=== PATIENT | female | born 1930 | race Caucasian/White ===

== ENCOUNTER 2018-12-31 17:46 | Inpatient (IN) | payer OTHER ==
--- NOTE | 2018-12-31 19:36 | PDOC ---
History of Present Illness - General History Source: Patient Exam Limitations: No Limitations - History of Present Illness Initial Comments: 12/31/18 19:34 88YOF with h/o HTN, HLD, A-fib on anticoagulants, GERD, and asthma, who p/w weakness, chills, nausea, loss of appetite, decreased PO food and liquid intake , and generalized malaise for the past 5 days. The weakness is especially worse in her legs, she notes there many be more swelling than normal, and she feels unable to lift her legs as normal, having difficulty walking. She went to see her [facility] PCP who checked her UA and found it to be not infected (she recently finished a course of antibiotics for a recent UTI). Has not taken medications at home for the symptoms. <Anna Mattson - Last Filed: 12/31/18 23:36> <Sarah Beth Garcia - Last Filed: 01/01/19 01:05> - General Chief Complaint: Weakness Stated Complaint: WEAKNESS Time Seen by Provider: 12/31/18 19:33 Past History - Past Medical History Asthma: Yes Cardiac Disorders: Yes (a-fib, clots) COPD: No GI Disorders: Yes (gerd) HTN: Yes Hypercholesterolemia: Yes - Immunization History Immunization Up to Date: Yes - Suicide/Smoking/Psychosocial Hx Smoking Status: No Smoking History: Never smoked Have you smoked in the past 12 months: No Number of Cigarettes Smoked Daily: 0 Information on smoking cessation initiated: No Hx Alcohol Use: No Drug/Substance Use Hx: No Substance Use Type: None Hx Substance Use Treatment: No <Anna Mattson - Last Filed: 12/31/18 23:36> <Sarah Beth Garcia - Last Filed: 01/01/19 01:05> - Past Medical History Allergies/Adverse Reactions: Allergies Allergy/AdvReac Type Severity Reaction Status Date / Time amoxicillin [Amoxicillin] Allergy Intermediate Rash Verified 12/31/18 17:49 atorvastatin calcium Allergy Verified 12/31/18 17:49 [From Lipitor] Home Medications: Ambulatory Orders Amlodipine Besylate 10 mg PO DAILY 12/13/15 Montelukast Na [Singulair -] 10 mg PO HS 12/13/15 Omeprazole [Prilosec] 20 mg PO DAILY 12/13/15 Pravastatin Sodium [Pravachol] 40 mg PO DAILY 12/13/15 Folic Acid 1 mg PO DAILY 05/31/18 Rivaroxaban [Xarelto -] 20 mg PO DAILY 05/31/18 Azithromycin [Zithromax -] 250 mg PO DAILY 12/31/18 Clarithromycin [Biaxin -] 500 mg PO BID 12/31/18 Prednisone 10 mg PO DAILY 12/31/18 Ranitidine HCl [Zantac] 150 mg PO BID 12/31/18 Tobramycin 0.3% Ophth Soln [Tobrex *Ophthalmic Solution*] 2 drop TID 12/31/18 Review of Systems - Review of Systems Able to Perform ROS?: Yes Comments:: 12/31/18 19:57 GEN: chills, malaise, generalized weakness HEENT: no ear pain, sore throat, vision change, or eye pain CV: lightheadedness, no chest pain, palpitations, syncope, or edema RESP: no cough, wheezing, or SOB GI: nausea, decreased PO intake, no abdominal pain, vomiting, diarrhea, constipation, or white/black/bloody stool : no dysuria, hematuria, incontinence, retention, bleeding, or discharge MSK: no neck/back pain, muscle weakness/pain, or joint swelling/pain NEURO: no headache, seizure, vertigo, numbness, tingling, or focal weakness PSYCH: no substance use, no behavior change SKIN: BLE rash, no jaundice ROS otherwise negative except as noted in HPI <Anna Mattson - Last Filed: 12/31/18 23:36> *Physical Exam - Vital Signs Last Vital Signs Temp Pulse Resp BP Pulse Ox 97.8 F 94 H 16 124/72 100 12/31/18 17:50 12/31/18 17:50 12/31/18 17:50 12/31/18 17:50 12/31/18 17:50 - Physical Exam Comments: 12/31/18 19:59 GENERAL: a bit uncomfortable and a bit ill-appearing, A/Ox4, no distress, answers questions appropriately HEENT: PERRLA, EOMI, a bit dry mucous membranes NECK/BACK: no midline ttp, no spinal stepoff or deformity, no hematoma, full ROM , neck supple CARDIOVASCULAR: regular rate/rhythm, normal S1S2, no MGR, strong peripheral pulses, capillary refill <2 seconds, extremities wwp, no edema LUNGS/RESPIRATORY: no respiratory distress, CTAB GI/ABDOMEN: symmetric [id number], normoactive BS, soft, no ttp, no midline pulsatile masses : no CVA tenderness EXTREMITIES: no muscle atrophy, no acute deformity, no edema SKIN: non-blanching 1 mm diameter petechiae scattered along proximal anterior shins bilaterally, skin otherwise warm and dry, no pallor, no jaundice, no rash , no bruising, no skin breakdown, no cuts, no lesions NEUROLOGICAL: GCS 15, CN II-XII grossly intact, 5/5 strength proximally and distally, no facial droop <Anna Mattson - Last Filed: 12/31/18 23:36> - Vital Signs Last Vital Signs Temp Pulse Resp BP Pulse Ox 100.6 F H 86 18 108/50 L 92 L 12/31/18 22:01 01/01/19 00:53 01/01/19 00:53 01/01/19 00:53 01/01/19 00:53 <Sarah Beth Garcia - Last Filed: 01/01/19 01:05> Moderate Sedation - Procedure Monitoring Vital Signs: Procedure Monitoring Vital Signs Temperature 97.8 F 12/31/18 17:50 Pulse Rate 94 H 12/31/18 17:50 Respiratory Rate 16 12/31/18 17:50 Blood Pressure 124/72 12/31/18 17:50 O2 Sat by Pulse Oximetry (%) 100 12/31/18 17:50 <Anna Mattson - Last Filed: 12/31/18 23:36> - Procedure Monitoring Vital Signs: Procedure Monitoring Vital Signs Temperature 100.6 F H 12/31/18 22:01 Pulse Rate 86 01/01/19 00:53 Respiratory Rate 18 01/01/19 00:53 Blood Pressure 108/50 L 01/01/19 00:53 O2 Sat by Pulse Oximetry (%) 92 L 01/01/19 00:53 <Sarah Beth Garcia - Last Filed: 01/01/19 01:05> ED Treatment Course - LABORATORY CBC & Chemistry Diagram: 12/31/18 20:09 12/31/18 20:09 <Anna Mattson - Last Filed: 12/31/18 23:36> - LABORATORY CBC & Chemistry Diagram: 12/31/18 20:09 12/31/18 20:09 - ADDITIONAL ORDERS Additional order review: Laboratory Results 12/31/18 12/31/18 12/31/18 20:12 20:09 20:09 PT with INR INR PTT (Actin FS) VBG pH POC VBG pCO2 POC VBG pO2 Mixed VBG HCO3 Sodium Potassium Chloride Carbon Dioxide Anion Gap BUN Creatinine Creat Clearance w eGFR Random Glucose Lactic Acid 1.4 Calcium Total Bilirubin AST ALT Alkaline Phosphatase Creatine Kinase Creatine Kinase Index CK-MB (CK-2) Troponin I B-Natriuretic Peptide Total Protein Albumin Urine Color Urine Appearance Urine pH Ur Specific [place] Urine Protein Urine Glucose (UA) Urine Ketones Urine Blood Urine Nitrite Urine Bilirubin Urine Urobilinogen Ur Leukocyte Esterase Blood Type Cancelled Antibody Screen Cancelled 12/31/18 12/31/18 12/31/18 20:09 20:09 20:09 PT with INR 12.70 INR 1.08 PTT (Actin FS) 29.6 VBG pH 7.54 H POC VBG pCO2 31.5 L POC VBG pO2 41.0 Mixed VBG HCO3 27.1 H Sodium Potassium Chloride Carbon Dioxide Anion Gap BUN Creatinine Creat Clearance w eGFR Random Glucose Lactic Acid Calcium Total Bilirubin AST ALT Alkaline Phosphatase Creatine Kinase Creatine Kinase Index CK-MB (CK-2) Troponin I B-Natriuretic Peptide Total Protein Albumin Urine Color Yellow Urine Appearance Clear Urine pH 5.0 D Ur Specific [place] 1.017 Urine Protein Negative Urine Glucose (UA) 3+ H Urine Ketones Trace H Urine Blood Negative Urine Nitrite Negative Urine Bilirubin Negative Urine Urobilinogen Negative Ur Leukocyte Esterase Negative Blood Type Antibody Screen 12/31/18 20:09 PT with INR INR PTT (Actin FS) VBG pH POC VBG pCO2 POC VBG pO2 Mixed VBG HCO3 Sodium 138 Potassium 4.7 Chloride 99 Carbon Dioxide 27 Anion Gap 12 BUN 21 H Creatinine 0.7 Creat Clearance w eGFR > 60 Random Glucose 57 L Lactic Acid Calcium 8.7 Total Bilirubin 0.7 AST 37 ALT 11 L Alkaline Phosphatase 91 Creatine Kinase 161 Creatine Kinase Index 0.9 CK-MB (CK-2) 1.50 Troponin I < 0.02 B-Natriuretic Peptide 1990.32 H Total Protein 6.4 Albumin 3.3 L Urine Color Urine Appearance Urine pH Ur Specific [place] Urine Protein Urine Glucose (UA) Urine Ketones Urine Blood Urine Nitrite Urine Bilirubin Urine Urobilinogen Ur Leukocyte Esterase Blood Type Antibody Screen 12/31/18 20:09 RBC 3.73 MCV 100.0 H MCHC 34.3 RDW 15.0 MPV 9.3 D Neutrophils % 68.0 D Lymphocytes % 24.6 D Monocytes % 4.1 Eosinophils % 2.7 D Basophils % 0.6 - Medications Given in the ED: ED Medications Discontinued Medications Generic Name Dose Route Start Last Admin Trade Name Donovan PRN Reason Stop Dose Admin Acetaminophen 1,000 mg 12/31/18 20:17 12/31/18 20:49 Ofirmev Injection - IVPB 12/31/18 20:18 1,000 mg ONCE ONE Administration Dextrose 25 gm 12/31/18 21:46 12/31/18 21:56 D50w (Vial) - IVPUSH 12/31/18 21:47 25 gm NOW ONE Administration Doxycycline Hyclate 100 mg/ 100 mls @ 100 mls/hr 12/31/18 23:57 01/01/19 00: 14 Dextrose IVPB 01/01/19 00:56 100 mls/hr ONCE ONE Administration Sodium Chloride 500 ml 12/31/18 19:51 12/31/18 20:49 Normal Saline - IV 12/31/18 19:52 500 ml ONCE ONE Administration <Sarah Beth Garcia - Last Filed: 01/01/19 01:05> Medical Decision Making - Medical Decision Making 88YOF Initial Vital Signs Temp Pulse Resp BP Pulse Ox 97.8 F 94 H 16 124/72 100 12/31/18 17:50 12/31/18 17:50 12/31/18 17:50 12/31/18 17:50 12/31/18 17:50 rectal temp 100.6 12/31/18 23:29 I have placed order for one dose of Levaquin 750mg. Most likely pulmonary source given possible LLL PNA on chest CT. She would be CAP; she is amoxicillin allergic. QTc is 472ms prior to administration. 12/31/18 23:34 The Pt is unsafe for discharge at this time. They require further hospital observation, workup, and treatment. Microblog sent to [facility] for admission. Blank Decision to Admit order is placed per ED protocol. <Anna Mattson - Last Filed: 12/31/18 23:36> *DC/Admit/Observation/Transfer - Discharge Dispostion Decision to Admit order: Yes <Anna Mattson - Last Filed: 12/31/18 23:36> <Sarah Beth Garcia - Last Filed: 01/01/19 01:05> Diagnosis at time of Disposition: Aspiration pneumonia Pneumonia Qualifiers: Pneumonia type: due to unspecified organism Laterality: left Lung location: lower lobe of lung Qualified Code(s): J18.1 - Lobar pneumonia, unspecified organism Failure to thrive Qualifiers: Failure to thrive age range: in adult Qualified Code(s): R62.7 - Adult failure to thrive - Discharge Dispostion Condition at time of disposition: Guarded
[2018-12-31] MEDS ORDERED: SODIUM CHLORIDE 0.9% 500 ML INFUS.BAG IV ONE (19:51)
--- NOTE | 2018-12-31 19:55 | PDOC ---
Attending Attestation - Resident Resident Name: SrinivasanAnna - ED Attending Attestation I have performed the following: I have examined & evaluated the patient, The case was reviewed & discussed with the resident, I agree w/resident's findings & plan - HPI HPI: 12/31/18 21:02 The patient is a 88 year old female, with a significant past medical history of HTN, HLD, A-fib on anticoagulants, GERD, recurrent UTI (recently finished Macrobid), and asthma, who presents to the emergency department with,5 days of weakness. Patient endorses her weakness to worsen in her bilateral lower extremities with associated subjective fevers and chills. She notes calling her PCP who advised to report to [facility] urgent care where she was advised to report to the ED for further evaluation. Allergies: Amoxicillin and Atorvastatin. Primary Care Physician: Dr. Hernandez - Physicial Exam PE: 12/31/18 21:03 GENERAL: Awake, alert, and fully oriented, in no acute distress HEAD: No signs of trauma EYES: PERRLA, EOMI, sclera anicteric, conjunctiva clear ENT: Auricles normal inspection, hearing grossly normal, nares patent, oropharynx clear without exudates. Moist mucosa NECK: Normal ROM, supple, no lymphadenopathy, JVD, or masses LUNGS: Breath sounds equal, clear to auscultation bilaterally. No wheezes, and no crackles HEART: Regular rate and rhythm, normal S1 and S2, no murmurs, rubs or gallops ABDOMEN: Soft, nontender, normoactive bowel sounds. No guarding, no rebound. No masses EXTREMITIES: Normal range of motion, no edema. No clubbing or cyanosis. No cords, erythema, or tenderness NEUROLOGICAL: Cranial nerves II through XII grossly intact. Normal speech. SKIN: 2+ blt LE discoloration 3/[address] white in coloration. Blt LE approximately 1/4 up to the knee petticae <Jaymie Knox - Last Filed: 12/31/18 21:03> - Medical Decision Making 12/31/18 21:50 Pt has an elevated WBC count and a fever. Blood cultures sent off and pt will have Urine cx sent. Once UA is back, we can decide on an ABX for the patient. She just completed a course of Macrobid. 01/01/19 01:02 Patient Name: RANDALL MCKOY THIS IS A PRELIMINARY REPORT FROM [facility] DATE OF SERVICE: 2018-12-31 23:04:21 IMAGES: [id number] EXAM: CHEST CT WITHOUT CONTRAST HISTORY: Weakness COMPARISON: None. FINDINGS: Heart:: Mildly enlarged. 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 The largest measures 1.2 x 0.6 cm Central airways: Normal Lungs: There is small amount of airspace opacity in the left lower lobe and to a lesser degree at the right lung base Pleural spaces: There is small pleural fluid collections Chest wall: Normal Superior abdomen: Normal IMPRESSION: Mild cardiomegaly. Correlation with cardiac history and exam recommended. Airspace opacity at the left lung base suggesting aspiration, or pneumonia 01/01/19 01:04 Patient Name: RANDALL MCKOY THIS IS A PRELIMINARY REPORT FROM [facility] DATE OF SERVICE: 2018-12-31 23:01:38 IMAGES: 128 EXAM: HEAD CT WITHOUT CONTRAST HISTORY: Weakness COMPARISON: None. FINDINGS: Brain parenchyma is normal in attenuation with no mass or hematoma. There is no midline shift. White and white matter differentiation is normal. Ventricles are normal. Sulci and extra-axial CSF spaces are normal. Intracranial vascular structures are normal in attenuation. There is no calvarial fracture. Paranasal sinuses are normally aerated. IMPRESSION: Normal head 01/01/19 20:05 Pt will be admitted <Sarah Bteh Garcia - Last Filed: 01/01/19 20:05> Attestations - Attestations 12/31/18 21:05 Documentation prepared by Jaymie Knox, acting as medical sonographer for Sarah Beth Garcia MD. <Jaymie Knox - Last Filed: 12/31/18 21:03>
[2018-12-31] MEDS ORDERED: ACETAMINOPHEN 1000 MG/100 ML VIAL (NON FORMULARY) IVPB ONE (20:17)
[2018-12-31] MEDS ORDERED: ACETAMINOPHEN INJECTION 100 ML IVPB ONE (20:20)
[2018-12-31 20:36] LABS: BASO % 0.6 % (0-2.0); EOS % 2.7 % (0-4.5); HEMATOCRIT 37.3 % (32.4-45.2); HEMOGLOBIN 12.8 GM/dL (10.7-15.3); LYMPH % 24.6 % (8-40); MCH 34.3 pg (25.7-33.7); MCHC 34.3 g/dl (32.0-36.0); MEAN PLT VOLUME 9.3 fl (7.5-11.1); MONO % 4.1 % (3.8-10.2); PLATELET COUNT 275 K/MM3 (134-434); RBC 3.73 M/mm3 (3.60-5.2); WHITE BLOOD COUNT 15.8 K/mm3 (4.0-10.0)
[2018-12-31 20:41] LABS: VENOUS PC02 31.5 mmHg (38-52); VENOUS PH 7.54 (7.32-7.42)
[2018-12-31 20:53] LABS: INR 1.08 (0.83-1.09); PROTHROMBIN TIME (PATIENT) 12.7 SEC (9.7-13.0)
[2018-12-31 20:56] LABS: ACTIVATED PTT 29.6 SECONDS (25.2-36.5)
[2018-12-31 21:22] LABS: ALBUMIN 3.3 g/dl (3.4-5.0); ANION GAP 12 MMOL/L (8-16); BLOOD UREA NITROGEN 21 mg/dL (7-18); CALCIUM 8.7 mg/dL (8.5-10.1); CHLORIDE 99 mmol/L (98-107); CO2 27 mmol/L (21-32); CREATININE 0.7 mg/dL (0.55-1.3); GLUCOSE,RANDOM 57 mg/dL (74-106); POTASSIUM 4.7 mmol/L (3.5-5.1); SODIUM 138 mmol/L (136-145); TOT PROT 6.4 g/dl (6.4-8.2)
[2018-12-31 21:23] LABS: ALK PHOS 91 U/L (45-117); BILIRUBIN,TOTAL 0.7 mg/dL (0.2-1); N-TERMINAL BNP 1990.32 pg/ml (5-450); SGOT/AST 37 U/L (15-37); SGPT/ALT 11 U/L (13-61)
[2018-12-31] MEDS ORDERED: DEXTROSE 50%-WATER - 25 GM/50 ML VIAL IVPUSH ONE (21:46)
[2018-12-31] MEDS ORDERED: DEXTROSE 50%-WATER 25 GM/50 ML DISP.SYRIN ONE (21:49)
[2018-12-31 23:13] LABS: URINE APPEARANCE CLEAR; URINE BILIRUBIN NEGATIVE (<2.0 mg/dL); URINE COLOR YELLOW; URINE GLUCOSE (UA) 3+ (NEGATIVE); URINE KETONE TRACE (NEGATIVE); URINE LEUK ESTERASE NEGATIVE (NEGATIVE); URINE NITRITE NEGATIVE (NEGATIVE); URINE PROTEIN NEGATIVE (NEGATIVE); URINE UROBILINOGEN NEGATIVE mg/dL (0.2-1.0)
--- NOTE | 2018-12-31 23:46 | PN ---
Teaching Attending Note Name of Resident: Bernie Larose ATTENDING PHYSICIAN STATEMENT I saw and evaluated the patient. I reviewed the resident's note and discussed the case with the resident. I agree with the resident's findings and plan as documented. SUBJECTIVE: Patient is an 88 year old woman with PMH of HTN, HLD, A-fib on anticoagulants, GERD, and asthma, who presents with weakness, chills, nausea, loss of appetite, decreased PO food and liquid intake, and generalized malaise for the past 5 days. The weakness is especially worse in her legs, she notes there many be more swelling than normal, and she feels unable to lift her legs as normal, having difficulty walking. She went to see her [facility] PCP who checked her UA and found it to be not infected (she recently finished a course of antibiotics for UTI). Has not taken medications at home for the symptoms. She is allergic to amoxicillin and atorvastatin. OBJECTIVE: Alert Vital Signs Period Temp Pulse Resp BP Sys/Hill Pulse Ox Last 24 Hr 97.8 F-100.6 F 94 16 124/72 100 HEENT: No Jaundice, eye redness or discharge, PERRLA, EOMI. Normocephalic, atraumatic. External ears are normal and hearing is grossly intact. No nasal discharge. Neck: Supple, nontender. No palpable adenopathy or thyromegaly. No JVD Chest: Good effort. Clear to auscultation and percussion. Heart: Regular. No S3, rub or murmur Abdomen: Not distended, soft, nontender and no HSM. No rebound or guarding. Normoactive bowel sounds. Ext: Peripheral pulses intact. Chronic stasis dermatitis on both legs. Nonpitting leg edema. Skin: Warm and dry. Has petechiae in both lower legs; no rash or ecchymosis. Neuro: Alert. Oriented x3. CN 2-12 grossly intact. Sensation grossly intact in all four extremities and DTR are symmetric. Current Medications Generic Name Dose Route Start Last Admin Trade Name Freq PRN Reason Stop Dose Admin Levofloxacin 750 mg in 150 mls @ 100 mls/hr 12/31/18 23:29 Levaquin 750 Mg Premixed Ivpb - IVPB 01/01/19 00:58 ONCE ONE Protocol Home Medications Medication Instructions Recorded Amlodipine Besylate 10 mg PO DAILY 12/13/15 Montelukast Na [Singulair -] 10 mg PO HS 12/13/15 Omeprazole [Prilosec] 20 mg PO DAILY 12/13/15 Pravastatin Sodium [Pravachol] 40 mg PO DAILY 12/13/15 Folic Acid 1 mg PO DAILY 05/31/18 Rivaroxaban [Xarelto -] 20 mg PO DAILY 05/31/18 Azithromycin [Zithromax -] 250 mg PO DAILY 12/31/18 Clarithromycin [Biaxin -] 500 mg PO BID 12/31/18 Prednisone 10 mg PO DAILY 12/31/18 Ranitidine HCl [Zantac] 150 mg PO BID 12/31/18 Tobramycin 0.3% Ophth Soln [Tobrex 2 drop TID 12/31/18 *Ophthalmic Solution*] Abnormal Lab Results 12/31/18 12/31/18 12/31/18 20:09 20:09 20:09 WBC 15.8 H MCV 100.0 H MCH 34.3 H Absolute Neuts (auto) 10.7 H VBG pH POC VBG pCO2 Mixed VBG HCO3 BUN 21 H Random Glucose 57 L ALT 11 L B-Natriuretic Peptide 1990.32 H Albumin 3.3 L Urine Glucose (UA) 3+ H Urine Ketones Trace H 12/31/18 20:09 WBC MCV MCH Absolute Neuts (auto) VBG pH 7.54 H POC VBG pCO2 31.5 L Mixed VBG HCO3 27.1 H BUN Random Glucose ALT B-Natriuretic Peptide Albumin Urine Glucose (UA) Urine Ketones ASSESSMENT AND PLAN: 1. Pneumonia - CT scan shows LLL infiltrate. Patient is allergic to amoxicillin and QTc is prolonged. Will treat with IV doxycycline and aztreonam. Consult ID. No acute pathology on head CT. Lower leg petechiae, macrocytosis and glycosuria are unexplained. Repeat UA and do HbA1c. 2. DVT prophylaxis - On xarelto 3. Advance directives - Full code
[2018-12-31] MEDS ORDERED: DOXYCYCLINE INJECTION 100 MG in DEXTROSE 5%-WATER - 100 ML IVPB ONE (23:57)
[2019-01-01] MEDS ORDERED: DOXYCYCLINE HYCLATE 100 MG VIAL ONE (00:06)
[2019-01-01] MEDS ORDERED: AZTREONAM 1 GM in DEXTROSE 5%-WATER - 50 ML IVPB ONE (01:06)
--- NOTE | 2019-01-01 01:09 | HP ---
CHIEF COMPLAINT: HISTORY OF PRESENT ILLNESS: Patient is an 88 year old female presented to the ED with the chief complaint of " Generalized weakness x 1 week". As per the patient, she was apparently well until a week ago then she started having generalized weakness, experienced more tiredness. Patient lives by herself, can perform ADLs and active. So these symptoms limited her daily activities that prompted her to come the ED. Patient denies any fever, rigors or sweating but now in the ED complaining of chills, wanting more blankets. Also reports she had mild cough, producing whitish phlegm. Other review of systems were negative. Bowel/Bladder habit normal. Sleep/Appetite decreased x 1 week. ER course was notable for: (1) Afebrile, hemodynamically stable. (2) CT Chest prelim report: Left lower lobe pneumonia (3) IV Doxycycline Recent Travel: None PAST MEDICAL HISTORY: HTN, HLD, A-fib/ DVT on anticoagulants, GERD, and asthma, PAST SURGICAL HISTORY: Doesn't remember Social History: Smoking: Denies Alcohol: Occasional Drugs: Denies Family History: Non contributory Allergies amoxicillin [Amoxicillin] Allergy (Intermediate, Verified 12/31/18 17:49) Rash atorvastatin calcium [From Lipitor] Allergy (Verified 12/31/18 17:49) PATIENT DOES NOT REMEMBER REACTION HOME MEDICATIONS: Home Medications Medication Instructions Recorded Amlodipine Besylate 10 mg PO DAILY 12/13/15 Montelukast Na [Singulair -] 10 mg PO HS 12/13/15 Omeprazole [Prilosec] 20 mg PO DAILY 12/13/15 Pravastatin Sodium [Pravachol] 40 mg PO DAILY 12/13/15 Folic Acid 1 mg PO DAILY 05/31/18 Rivaroxaban [Xarelto -] 20 mg PO DAILY 05/31/18 Azithromycin [Zithromax -] 250 mg PO DAILY 12/31/18 Clarithromycin [Biaxin -] 500 mg PO BID 12/31/18 Prednisone 10 mg PO DAILY 12/31/18 Ranitidine HCl [Zantac] 150 mg PO BID 12/31/18 Tobramycin 0.3% Ophth Soln [Tobrex 2 drop TID 12/31/18 *Ophthalmic Solution*] REVIEW OF SYSTEMS CONSTITUTIONAL: Present: malaise, loss of appetite Absent: fever, chills, diaphoresis, generalized weakness, weight change HEENT: Absent: rhinorrhea, nasal congestion, throat pain, throat swelling, difficulty swallowing, mouth swelling, ear pain, eye pain, visual changes CARDIOVASCULAR: Absent: chest pain, syncope, palpitations, irregular heart rate, lightheadedness , peripheral edema RESPIRATORY: Absent: cough, shortness of breath, dyspnea with exertion, orthopnea, wheezing, stridor, hemoptysis GASTROINTESTINAL: Absent: abdominal pain, abdominal distension, nausea, vomiting, diarrhea, constipation, melena, hematochezia GENITOURINARY: Absent: dysuria, frequency, urgency, hesitancy, hematuria, flank pain, genital pain MUSCULOSKELETAL: Absent: myalgia, arthralgia, joint swelling, back pain, neck pain SKIN: Absent: rash, itching, pallor HEMATOLOGIC/IMMUNOLOGIC: Absent: easy bleeding, easy bruising, lymphadenopathy, frequent infections ENDOCRINE: Absent: unexplained weight gain, unexplained weight loss, heat intolerance, cold intolerance NEUROLOGIC: Absent: headache, focal weakness or paresthesias, dizziness, unsteady gait, seizure, mental status changes, bladder or bowel incontinence PSYCHIATRIC: Absent: anxiety, depression, suicidal or homicidal ideation, hallucinations. PHYSICAL EXAMINATION Vital Signs - 24 hr 12/31/18 12/31/18 01/01/19 17:50 22:01 00:53 Temperature 97.8 F 100.6 F H Pulse Rate 94 H Pulse Rate [ 86 Apical] Respiratory 16 18 Rate Blood Pressure 124/72 Blood Pressure 108/50 L [Right Arm] O2 Sat by Pulse 100 92 L Oximetry (%) GENERAL: Elderly female, lying in bed, Awake, alert, and fully oriented, in no acute distress. EYES: EOM intact, no pallor or icterus. NECK: Supple. LUNGS: B/L breath sounds equal. Crackles in the Left lung. HEART: Regular rate and rhythm, normal S1 and S2 without murmur. ABDOMEN: Soft, nontender, no organomegaly. UPPER EXTREMITIES: 2+ pulses, warm, well-perfused. No cyanosis. No clubbing. No peripheral edema. LOWER EXTREMITIES: Petechia on the lower ext, chronic venous statis, 1 + pitting edema. NEUROLOGICAL: No facial droop, power 5/5 in all ext, Cranial nerves II-XII intact. Normal speech. Gait not observed. PSYCHIATRIC: Cooperative. Good eye contact. Appropriate mood and affect. SKIN: Warm, dry, normal turgor, Petechia on b/l lower ext. Laboratory Results - last 24 hr 12/31/18 12/31/18 12/31/18 20:09 20:09 20:09 WBC 15.8 H RBC 3.73 Hgb 12.8 Hct 37.3 MCV 100.0 H MCH 34.3 H MCHC 34.3 RDW 15.0 Plt Count 275 MPV 9.3 D Absolute Neuts (auto) 10.7 H Neutrophils % 68.0 D Lymphocytes % 24.6 D Monocytes % 4.1 Eosinophils % 2.7 D Basophils % 0.6 Nucleated RBC % 0 PT with INR 12.70 INR 1.08 PTT (Actin FS) 29.6 VBG pH POC VBG pCO2 POC VBG pO2 Mixed VBG HCO3 Sodium 138 Potassium 4.7 Chloride 99 Carbon Dioxide 27 Anion Gap 12 BUN 21 H Creatinine 0.7 Creat Clearance w eGFR > 60 Random Glucose 57 L Lactic Acid Calcium 8.7 Total Bilirubin 0.7 AST 37 ALT 11 L Alkaline Phosphatase 91 Creatine Kinase 161 Creatine Kinase Index 0.9 CK-MB (CK-2) 1.50 Troponin I < 0.02 B-Natriuretic Peptide 1990.32 H Total Protein 6.4 Albumin 3.3 L Urine Color Urine Appearance Urine pH Ur Specific [place] Urine Protein Urine Glucose (UA) Urine Ketones Urine Blood Urine Nitrite Urine Bilirubin Urine Urobilinogen Ur Leukocyte Esterase Blood Type Antibody Screen 12/31/18 12/31/18 12/31/18 20:09 20:09 20:09 WBC RBC Hgb Hct MCV MCH MCHC RDW Plt Count MPV Absolute Neuts (auto) Neutrophils % Lymphocytes % Monocytes % Eosinophils % Basophils % Nucleated RBC % PT with INR INR PTT (Actin FS) VBG pH 7.54 H POC VBG pCO2 31.5 L POC VBG pO2 41.0 Mixed VBG HCO3 27.1 H Sodium Potassium Chloride Carbon Dioxide Anion Gap BUN Creatinine Creat Clearance w eGFR Random Glucose Lactic Acid Calcium Total Bilirubin AST ALT Alkaline Phosphatase Creatine Kinase Creatine Kinase Index CK-MB (CK-2) Troponin I B-Natriuretic Peptide Total Protein Albumin Urine Color Yellow Urine Appearance Clear Urine pH 5.0 D Ur Specific [place] 1.017 Urine Protein Negative Urine Glucose (UA) 3+ H Urine Ketones Trace H Urine Blood Negative Urine Nitrite Negative Urine Bilirubin Negative Urine Urobilinogen Negative Ur Leukocyte Esterase Negative Blood Type Cancelled Antibody Screen Cancelled 12/31/18 12/31/18 20:09 20:12 WBC RBC Hgb Hct MCV MCH MCHC RDW Plt Count MPV Absolute Neuts (auto) Neutrophils % Lymphocytes % Monocytes % Eosinophils % Basophils % Nucleated RBC % PT with INR INR PTT (Actin FS) VBG pH POC VBG pCO2 POC VBG pO2 Mixed VBG HCO3 Sodium Potassium Chloride Carbon Dioxide Anion Gap BUN Creatinine Creat Clearance w eGFR Random Glucose Lactic Acid 1.4 Calcium Total Bilirubin AST ALT Alkaline Phosphatase Creatine Kinase Creatine Kinase Index CK-MB (CK-2) Troponin I B-Natriuretic Peptide Total Protein Albumin Urine Color Urine Appearance Urine pH Ur Specific [place] Urine Protein Urine Glucose (UA) Urine Ketones Urine Blood Urine Nitrite Urine Bilirubin Urine Urobilinogen Ur Leukocyte Esterase Blood Type Antibody Screen ASSESSMENT/PLAN: Patient is an 88 year old female with significant past medical history of HTN, HLD, A-fib/ DVT on anticoagulants, GERD, and asthma presented to the ED with the chief complaint of " Generalized weakness x 1 week" found to have pneumonia. # Community acquired pneumonia-LLL c/o generalize weakness Found to have LLL Pneumonia in CT Admit to Med-Surg Start IV Doxycycline 100 mg BID and IV Aztreonam (patient is allergic to amoxicillin and has prolonged qtc so abx choice is limited) ID Consult requested Flu pending Urine for legionella and sputum culture ordered. # Petechial rash in bilateral lower ext Pt states she didn't notice the rash until she was told in the ED. Unsure of the cause, platelet count normal. # Hypertension-controlled Continue amlodipine 10 mg # Asthma Continue Montelukast 10mg HS and Prednisone 10mg # DVT/PAF Continue Xarelto # Parkinsons disease States she is not sure if she takes sinemet. Will sign out to the morning team to confirm home meds. # Please confirm home meds. # FEN Not on IV fluids, can tolerate PO Electrolytes WNL Sodium controlled diet # Prophylaxis For DVT: Already on xarelto For GI: On Zantac 150mg BID # Code Status: Full Code # Dispo: Admit to Med-Surg Illness, Investigation and plan of care explained to the patient. She verbalized understanding. Case discussed with Dr. Aguilar.
[2019-01-01 06:00] VITALS: BMI 22.3
[2019-01-01] MEDS: TOBRAMYCIN 0.3% OPHTH SOLN 5 ML BOTTLE OU SCH ×3 (06:31→21:08)
[2019-01-01 09:21] LABS: HEMATOCRIT 33.9 % (32.4-45.2); HEMOGLOBIN 11.5 GM/dL (10.7-15.3); MCH 33.5 pg (25.7-33.7); MCHC 33.9 g/dl (32.0-36.0); MEAN CELL VOLUME 98.7 fl (80-96); MEAN PLT VOLUME 7.6 fl (7.5-11.1); PLATELET COUNT 348 K/MM3 (134-434); RBC 3.44 M/mm3 (3.60-5.2); RDW 14.4 % (11.6-15.6); WHITE BLOOD COUNT 14.5 K/mm3 (4.0-10.0)
[2019-01-01] MEDS: FOLIC ACID 1 MG TABLET (FP) PO SCH (09:32)
[2019-01-01] MEDS: RANITIDINE HCL 150 MG TABLET (FP) PO SCH ×2 (09:32→21:08)
[2019-01-01] MEDS: DOXYCYCLINE INJECTION 100 MG in DEXTROSE 5%-WATER - 100 ML IVPB SCH ×2 (09:32→21:11)
[2019-01-01] MEDS: PANTOPRAZOLE 20 MG TABLET (FP) PO SCH (09:32)
[2019-01-01] MEDS: amLODIPine BESYLATE 10 MG TABLET (FP) PO SCH (09:32)
[2019-01-01] MEDS: predniSONE 10 MG TABLET (UD) PO SCH (09:32)
[2019-01-01] MEDS ORDERED: PATIENT'S OWN MEDICATION (NON-FORMULARY) (Pravastatin Sodium [Pravachol] 40 MG) PO SCH (10:00)
[2019-01-01 10:02] LABS: ANION GAP 11 MMOL/L (8-16); BLOOD UREA NITROGEN 15 mg/dL (7-18); CHLORIDE 105 mmol/L (98-107); CO2 27 mmol/L (21-32); CREATININE 0.6 mg/dL (0.55-1.3); GLUCOSE,RANDOM 94 mg/dL (74-106); MAGNESIUM 2.1 mg/dL (1.8-2.4); PHOSPHOROUS 2.8 mg/dL (2.5-4.9); POTASSIUM 3.4 mmol/L (3.5-5.1); SODIUM 143 mmol/L (136-145)
--- NOTE | 2019-01-01 10:50 | PN ---
Progress Note, Physician History of Present Illness: pt seen/ examined chart reviewed awake/ comfortable but weak. - Current Medication List Current Medications: Active Medications Amlodipine Besylate (Norvasc -) 10 mg PO DAILY [facility] Last Admin: 01/01/19 09:32 Dose: 10 mg Folic Acid (Folic Acid -) 1 mg PO DAILY [facility] Last Admin: 01/01/19 09:32 Dose: 1 mg Doxycycline Hyclate 100 mg/ (Dextrose) 100 mls @ 100 mls/hr IVPB BID [facility] Last Admin: 01/01/19 09:32 Dose: 100 mls/hr Montelukast Sodium (Singulair -) 10 mg PO HS [facility] Non-Formulary Medication (Pravastatin Sodium [Pravachol]) 40 mg PO DAILY [facility] Pantoprazole Sodium (Protonix -) 20 mg PO DAILY [facility] Last Admin: 01/01/19 09:32 Dose: 20 mg Potassium Chloride (Potassium Chloride Oral Liquid) 40 meq PO ONCE ONE Stop: 01/01/19 10:48 Prednisone (Deltasone -) 10 mg PO DAILY [facility] Last Admin: 01/01/19 09:32 Dose: 10 mg Ranitidine HCl (Zantac -) 150 mg PO BID [facility] Last Admin: 01/01/19 09:32 Dose: 150 mg Rivaroxaban (Xarelto -) 20 mg PO DAILY@1800 [facility] Tobramycin Sulfate (Tobrex Ophthalmic Solution -) 2 drop OU TID [facility] Last Admin: 01/01/19 06:31 Dose: 2 drop - Objective Vital Signs: Vital Signs Temperature 98.1 F 01/01/19 05:59 Pulse Rate 85 01/01/19 05:59 Respiratory Rate 20 01/01/19 05:59 Blood Pressure 119/62 01/01/19 05:59 O2 Sat by Pulse Oximetry (%) 93 L 01/01/19 05:48 Constitutional: Yes: No Distress, Calm Eyes: Yes: Conjunctiva Clear Neck: Yes: Supple Cardiovascular: Yes: Regular Rate and Rhythm Respiratory: Yes: Diminished Gastrointestinal: Yes: Soft Edema: LLE: Trace, RLE: Trace Neurological: Yes: Alert Psychiatric: Yes: Alert Labs: CBC, BMP 01/01/19 07:45 01/01/19 07:45 INR, PTT INR 1.08 (0.83-1.09) 12/31/18 20:09 - ....Imaging Chest X-ray: Report Reviewed Cat Scan: Report Reviewed Problem List - Problems (1) Leukocytosis Code(s): D72.829 - ELEVATED WHITE BLOOD CELL COUNT, UNSPECIFIED (2) Pneumonia Code(s): J18.9 - PNEUMONIA, UNSPECIFIED ORGANISM Qualifiers: Pneumonia type: due to unspecified organism Laterality: left Lung location: lower lobe of lung Qualified Code(s): J18.1 - Lobar pneumonia, unspecified organism (3) Atrial fibrillation Code(s): I48.91 - UNSPECIFIED ATRIAL FIBRILLATION (4) Hypertension Code(s): I10 - ESSENTIAL (PRIMARY) HYPERTENSION Qualifiers: Hypertension type: essential hypertension Qualified Code(s): I10 - Essential (primary) hypertension (5) Paroxysmal atrial fibrillation Code(s): I48.0 - PAROXYSMAL ATRIAL FIBRILLATION Assessment/Plan Discussed abx continue other meds oxygen i/d consult further recommendations per clinical course will follow
[2019-01-01] MEDS ORDERED: POTASSIUM CHLORIDE ORAL LIQUID 20 MEQ/15 ML PO ONE (11:00)
--- NOTE | 2019-01-01 13:33 | PN ---
Progress Note (short form) - Note Progress Note: ID consult dictated imp/reccd-88 yo female admitted with weakness and leukocytosis chest ct with bilateral pleural effusions and consolidation/atelectasis both lower lobes she has recently been treated for a UTI- bactrim, then cipro then macrobid- which she finished yesterday +cough no diarrhea no vomiting amox allergy- rash received levaquin, doxy, azactam since admission possible pneumonia amox allergy prolonged qtc continue doxycycline/azactam cultures legionella urinary antigen Problem List - Problems (1) Weakness Code(s): R53.1 - WEAKNESS (2) Leukocytosis Code(s): D72.829 - ELEVATED WHITE BLOOD CELL COUNT, UNSPECIFIED (3) Pneumonia Code(s): J18.9 - PNEUMONIA, UNSPECIFIED ORGANISM Qualifiers: Pneumonia type: due to unspecified organism Laterality: left Lung location: lower lobe of lung Qualified Code(s): J18.1 - Lobar pneumonia, unspecified organism (4) Allergy to amoxicillin Code(s): Z88.0 - ALLERGY STATUS TO PENICILLIN
[2019-01-01] MEDS: AZTREONAM 1 GM in DEXTROSE 5%-WATER - 50 ML IVPB SCH ×2 (14:27→19:57)
--- NOTE | 2019-01-01 14:54 | CONS ---
DATE OF CONSULTATION: DATE OF DICTATION: 01/01/2019 INFECTIOUS DISEASE CONSULTATION REQUESTING PHYSICIAN: Kasia Mosley M.D. HISTORY OF PRESENT ILLNESS: This is an 88-year-old woman who was admitted from home with 1 week of generalized weakness. She lives by herself. She has a home health aide. She denies any fevers, but in the ER she reported chills and reported a cough. She was recently treated in November for a UTI with 3 different antibiotics - Bactrim, Cipro and Macrobid. She is currently complaining of a mild cough. She has no nausea or vomiting. She has no diarrhea or dysuria. She has had poor oral intake for the last week. PAST MEDICAL HISTORY: Notable for hypertension, hyperlipidemia, atrial fibrillation, DVT, GERD and asthma. PAST SURGICAL HISTORY: Notable for hysterectomy. SOCIAL HISTORY: She has never smoked. She lives alone. She has an aide who helps her in the daytime. There is no history of alcohol or substance use. ALLERGIES: Amoxacillin WHICH GIVES HER A RASH AND LIPITOR. MEDICATIONS: Her medications at home include Pravachol, Singulair, amlodipine, Xarelto, Zantac, Prilosec, and folic acid. She has not recently been on prednisone. REVIEW OF SYSTEMS: As per HPI. She denies chest pain. She notes a cough that is nonproductive. She notes no fever but has had chills and generalized weakness. PHYSICAL EXAMINATION: Vital Signs: Temperature is 97.9. Tmax was 100.6. Pulse 84. Blood pressure 100/62. Respiratory rate 18. HEENT: She is normocephalic. Eyes are anicteric. Neck: Supple. Lungs: Diminished breath sounds at the lung bases. Heart: Regular rate and rhythm. Abdomen: Soft, nontender. Extremities: Without edema. DIAGNOSTIC STUDIES: White count of 14.5, on admission was 15.8. Hemoglobin 11.5, platelets 348. BUN 15, creatinine 0.6. LFTs are normal. Urinalysis is negative. Cultures are pending. CT of the chest shows bilateral pleural effusions with bibasilar consolidation and atelectasis. Head CT shows no evidence of acute intracranial pathology. SUMMARY: This is an elderly woman with leukocytosis, weakness and cough, possible pneumonia, with an amoxicillin allergy, prolonged QTc on electrocardiogram. Would continue doxycycline and Azactam. Obtain cultures, Legionella urinary antigen. Christal CAGLE/[id number] MTDD
--- NOTE | 2019-01-01 16:42 | EKG ---
Test Reason : Blood Pressure : / mmHG Vent. Rate : 090 BPM Atrial Rate : 090 BPM P-R Int : 234 ms QRS Dur : 094 ms QT Int : 386 ms P-R-T Axes : 021 -14 -14 degrees QTc Int : 472 ms POOR DATA QUALITY, INTERPRETATION MAY BE ADVERSELY AFFECTED SINUS RHYTHM WITH 1ST DEGREE A-V BLOCK CANNOT RULE OUT ANTERIOR INFARCT , AGE UNDETERMINED ABNORMAL ECG WHEN COMPARED WITH ECG OF 04-FEB-2016 10:53, MINIMAL CRITERIA FOR ANTERIOR INFARCT ARE NOW PRESENT NONSPECIFIC T WAVE ABNORMALITY, WORSE IN ANTERIOR LEADS Confirmed by Kasia Nelson ([id number]) on 01/01/2019 4:41:23 PM Referred By: Confirmed By:Kasia Nelson
[2019-01-01] MEDS: RIVAROXABAN 20 MG TABLET PO SCH (17:43)
[2019-01-01] MEDS: MONTELUKAST NA 10 MG TABLET PO SCH (21:08)
[2019-01-01] MEDS ORDERED: PT OWN MED DRAWER 7, Y5N ONE (21:10)
[2019-01-02] MEDS: AZTREONAM 1 GM in DEXTROSE 5%-WATER - 50 ML IVPB SCH ×3 (02:39→17:56)
[2019-01-02] MEDS: TOBRAMYCIN 0.3% OPHTH SOLN 5 ML BOTTLE OU SCH ×3 (06:16→21:28)
[2019-01-02 06:44] LABS: BASO % 0.7 % (0-2.0); EOS % 2.7 % (0-4.5); HEMATOCRIT 34.9 % (32.4-45.2); HEMOGLOBIN 11.8 GM/dL (10.7-15.3); LYMPH % 37.9 % (8-40); MCH 33.4 pg (25.7-33.7); MCHC 33.9 g/dl (32.0-36.0); MEAN CELL VOLUME 98.4 fl (80-96); MEAN PLT VOLUME 7.5 fl (7.5-11.1); MONO % 6.3 % (3.8-10.2); NEUT % 52.4 % (42.8-82.8); PLATELET COUNT 362 K/MM3 (134-434); RBC 3.55 M/mm3 (3.60-5.2); RDW 14.9 % (11.6-15.6)
[2019-01-02 07:24] LABS: ALBUMIN 2.6 g/dl (3.4-5.0); ALK PHOS 80 U/L (45-117); ANION GAP 6 MMOL/L (8-16); BILIRUBIN,TOTAL 0.4 mg/dL (0.2-1); BLOOD UREA NITROGEN 16 mg/dL (7-18); CALCIUM 7.9 mg/dL (8.5-10.1); CHLORIDE 109 mmol/L (98-107); CO2 28 mmol/L (21-32); CREATININE 0.6 mg/dL (0.55-1.3); GLUCOSE,RANDOM 79 mg/dL (74-106); POTASSIUM 3.8 mmol/L (3.5-5.1); SGOT/AST 23 U/L (15-37); SGPT/ALT 25 U/L (13-61); SODIUM 143 mmol/L (136-145); TOT PROT 5.5 g/dl (6.4-8.2)
[2019-01-02] MEDS ORDERED: PT OWN MED DRAWER 7, Y5N ONE ×3 (08:43→21:10)
[2019-01-02] MEDS: RANITIDINE HCL 150 MG TABLET (FP) PO SCH ×2 (09:19→21:29)
[2019-01-02] MEDS: predniSONE 10 MG TABLET (UD) PO SCH ×2 (09:19→09:36)
[2019-01-02] MEDS: DOXYCYCLINE INJECTION 100 MG in DEXTROSE 5%-WATER - 100 ML IVPB SCH ×2 (09:19→21:29)
[2019-01-02] MEDS: FOLIC ACID 1 MG TABLET (FP) PO SCH (09:19)
[2019-01-02] MEDS: PANTOPRAZOLE 20 MG TABLET (FP) PO SCH (09:19)
[2019-01-02] MEDS: amLODIPine BESYLATE 10 MG TABLET (FP) PO SCH (09:19)
--- NOTE | 2019-01-02 11:44 | PN ---
Progress Note (short form) - Note Progress Note: pt feels better says much better meds reviewed says takes sinemat and currently not taking prednisone. Vital Signs Temp 98.3 F 01/02/19 06:34 Pulse 83 01/02/19 06:34 Resp 20 01/02/19 06:34 BP 123/67 01/02/19 06:34 Pulse Ox 93 L 01/01/19 20:01 Intake & Output 01/01/19 01/01/19 01/02/19 11:59 23:59 11:59 Intake Total 325 650 445 Output Total 700 Balance -375 650 445 Weight 118 lb 4 oz Intake: IVPB 100 350 50 Oral 225 300 395 Output: Urine 700 Roberts 700 Other: Voiding Method Diaper Diaper Diaper # Unmeasured Voids Roberts 1 1 Bowel Movement No No Yes # Bowel Movements 1 Height 5 ft 1 in Body Mass Index (BMI) 22.3 Active Medications Amlodipine Besylate (Norvasc -) 10 mg PO DAILY [facility] Last Admin: 01/02/19 09:19 Dose: 10 mg Carbidopa/Levodopa (Sinemet *Cr* 25/100 -) 1 combo PO TID [facility] Folic Acid (Folic Acid -) 1 mg PO DAILY [facility] Last Admin: 01/02/19 09:19 Dose: 1 mg Doxycycline Hyclate 100 mg/ (Dextrose) 100 mls @ 100 mls/hr IVPB BID [facility] Last Admin: 01/02/19 09:19 Dose: 100 mls/hr Aztreonam 1 gm/ Dextrose 50 mls @ 100 mls/hr IVPB Q8H-IV [facility]; Protocol Last Admin: 01/02/19 09:32 Dose: 100 mls/hr Montelukast Sodium (Singulair -) 10 mg PO HS [facility] Last Admin: 01/01/19 21:08 Dose: 10 mg Non-Formulary Medication (Pravastatin Sodium [Pravachol]) 40 mg PO DAILY [facility] Pantoprazole Sodium (Protonix -) 20 mg PO DAILY [facility] Last Admin: 01/02/19 09:19 Dose: 20 mg Ranitidine HCl (Zantac -) 150 mg PO BID [facility] Last Admin: 01/02/19 09:19 Dose: 150 mg Rivaroxaban (Xarelto -) 20 mg PO DAILY@1800 [facility] Last Admin: 01/01/19 17:43 Dose: 20 mg Tobramycin Sulfate (Tobrex Ophthalmic Solution -) 2 drop OU TID [facility] Last Admin: 01/02/19 06:16 Dose: 2 drop CBC, BMP 01/02/19 05:15 01/02/19 05:15 Microbiology 12/31/18 20:09 Urine Culture - Final Urine - Urine - Catheterized NO GROWTH OBTAINED 01/01/19 21:30 Legionella Antigen - Final Urine For Antigen Detection Streptococcus pneumoniae Antigen (M - Final 12/31/18 20:09 Blood Culture - Preliminary Blood - Peripheral Venous NO GROWTH OBTAINED AFTER 24 HOURS, INCUBATION TO CONTINUE FOR 4 DAYS. 12/31/18 20:12 Blood Culture - Preliminary Blood - Peripheral Venous NO GROWTH OBTAINED AFTER 24 HOURS, INCUBATION TO CONTINUE FOR 4 DAYS. Physical Exam Constitutional: Yes: No Distress, Calm. Better Eyes: Yes: Conjunctiva Clear Neck: Yes: Supple Cardiovascular: Yes: Regular Rate and Rhythm Respiratory: Yes: Diminished Gastrointestinal: Yes: Soft Edema: LLE: Trace, RLE: Trace Neurological: Yes: Alert Psychiatric: Yes: Alert - ....Imaging Chest X-ray: Report Reviewed Cat Scan: Report Reviewed Assessment/Plan Better abx continue other meds d/c prednisone restart on sinemet further recommendations per clinical course will follow daily oob- chair pt Problem List - Problems (1) Leukocytosis Code(s): D72.829 - ELEVATED WHITE BLOOD CELL COUNT, UNSPECIFIED (2) Pneumonia Code(s): J18.9 - PNEUMONIA, UNSPECIFIED ORGANISM Qualifiers: Pneumonia type: due to unspecified organism Laterality: left Lung location: lower lobe of lung Qualified Code(s): J18.1 - Lobar pneumonia, unspecified organism (3) Atrial fibrillation Code(s): I48.91 - UNSPECIFIED ATRIAL FIBRILLATION (4) Hypertension Code(s): I10 - ESSENTIAL (PRIMARY) HYPERTENSION Qualifiers: Hypertension type: essential hypertension Qualified Code(s): I10 - Essential (primary) hypertension (5) Paroxysmal atrial fibrillation Code(s): I48.0 - PAROXYSMAL ATRIAL FIBRILLATION
[2019-01-02] MEDS: RIVAROXABAN 20 MG TABLET PO SCH (17:56)
[2019-01-02] MEDS: MONTELUKAST NA 10 MG TABLET PO SCH (21:28)
[2019-01-02] MEDS: ACETAMINOPHEN 325 MG TABLET (FP) PO PRN (21:42)
[2019-01-03] MEDS: AZTREONAM 1 GM in DEXTROSE 5%-WATER - 50 ML IVPB SCH ×3 (02:02→18:00)
[2019-01-03] MEDS ORDERED: PT OWN MED DRAWER 7, Y5N ONE ×2 (02:54→21:22)
[2019-01-03] MEDS: TOBRAMYCIN 0.3% OPHTH SOLN 5 ML BOTTLE OU SCH ×3 (06:33→21:50)
[2019-01-03] MEDS: FOLIC ACID 1 MG TABLET (FP) PO SCH (09:04)
[2019-01-03] MEDS: DOXYCYCLINE INJECTION 100 MG in DEXTROSE 5%-WATER - 100 ML IVPB SCH ×2 (09:04→21:41)
[2019-01-03] MEDS: PANTOPRAZOLE 20 MG TABLET (FP) PO SCH (09:04)
[2019-01-03] MEDS: amLODIPine BESYLATE 10 MG TABLET (FP) PO SCH (09:04)
[2019-01-03] MEDS: RANITIDINE HCL 150 MG TABLET (FP) PO SCH ×2 (09:04→21:41)
--- NOTE | 2019-01-03 10:34 | PN ---
Progress Note (short form) - Note Progress Note: pt seen/ examined comfortable feels better chart reviewed Vital Signs Temp 98.7 F 01/03/19 10:00 Pulse 98 H 01/03/19 10:00 Resp 20 01/03/19 10:00 BP 100/66 01/03/19 10:00 Pulse Ox 95 01/03/19 09:00 Intake & Output 01/02/19 01/02/19 01/03/19 11:59 23:59 11:59 Intake Total 445 550 100 Balance 445 550 100 Intake: IVPB 50 100 100 Oral 395 450 Other: Voiding Method Diaper Diaper # Unmeasured Voids Roberts 1 2 Bowel Movement Yes Yes # Bowel Movements 1 1 Active Medications Acetaminophen (Tylenol -) 650 mg PO Q6H PRN PRN Reason: PAIN LEVEL 1-5 OR FEVER Last Admin: 01/02/19 21:42 Dose: 650 mg Amlodipine Besylate (Norvasc -) 10 mg PO DAILY [facility] Last Admin: 01/03/19 09:04 Dose: 10 mg Carbidopa/Levodopa (Sinemet *Cr* 25/100 -) 1 combo PO TID [facility] Last Admin: 01/03/19 06:33 Dose: 1 combo Folic Acid (Folic Acid -) 1 mg PO DAILY [facility] Last Admin: 01/03/19 09:04 Dose: 1 mg Doxycycline Hyclate 100 mg/ (Dextrose) 100 mls @ 100 mls/hr IVPB BID [facility] Last Admin: 01/03/19 09:04 Dose: 100 mls/hr Aztreonam 1 gm/ Dextrose 50 mls @ 100 mls/hr IVPB Q8H-IV [facility]; Protocol Last Admin: 01/03/19 09:04 Dose: 100 mls/hr Montelukast Sodium (Singulair -) 10 mg PO HS [facility] Last Admin: 01/02/19 21:28 Dose: 10 mg Non-Formulary Medication (Pravastatin Sodium [Pravachol]) 40 mg PO DAILY [facility] Pantoprazole Sodium (Protonix -) 20 mg PO DAILY [facility] Last Admin: 01/03/19 09:04 Dose: 20 mg Ranitidine HCl (Zantac -) 150 mg PO BID [facility] Last Admin: 01/03/19 09:04 Dose: 150 mg Rivaroxaban (Xarelto -) 20 mg PO DAILY@1800 [facility] Last Admin: 01/02/19 17:56 Dose: 20 mg Tobramycin Sulfate (Tobrex Ophthalmic Solution -) 2 drop OU TID [facility] Last Admin: 01/03/19 06:33 Dose: 2 drop CBC, BMP 01/02/19 05:15 01/02/19 05:15 Microbiology 12/31/18 20:09 Blood Culture - Preliminary Blood - Peripheral Venous NO GROWTH OBTAINED AFTER 48 HOURS, INCUBATION TO CONTINUE FOR 3 DAYS. 12/31/18 20:12 Blood Culture - Preliminary Blood - Peripheral Venous NO GROWTH OBTAINED AFTER 48 HOURS, INCUBATION TO CONTINUE FOR 3 DAYS. 12/31/18 20:09 Urine Culture - Final Urine - Urine - Catheterized NO GROWTH OBTAINED 01/01/19 21:30 Legionella Antigen - Final Urine For Antigen Detection Streptococcus pneumoniae Antigen (M - Final Physical Exam Constitutional: Yes: No Distress, Calm. Better Eyes: Yes: Conjunctiva Clear Neck: Yes: Supple Cardiovascular: Yes: Regular Rate and Rhythm Respiratory: Yes: Diminished at bases Gastrointestinal: Yes: Soft Edema: LLE: Trace, RLE: Trace Neurological: Yes: Alert Psychiatric: Yes: Alert - ....Imaging Chest X-ray: Report Reviewed Cat Scan: Report Reviewed Assessment/Plan Better abx continue other meds patient's BNP is high Slightly tachycardic Will order echo discontinue amlodipine Start on beta dinorah will follow daily oob- chair physical therapy Will likely need rehab Anticipated discharge in next couple of days Discussed with outpatient case manager also Problem List - Problems (1) Leukocytosis Code(s): D72.829 - ELEVATED WHITE BLOOD CELL COUNT, UNSPECIFIED (2) Pneumonia Code(s): J18.9 - PNEUMONIA, UNSPECIFIED ORGANISM Qualifiers: Pneumonia type: due to unspecified organism Laterality: left Lung location: lower lobe of lung Qualified Code(s): J18.1 - Lobar pneumonia, unspecified organism (3) Atrial fibrillation Code(s): I48.91 - UNSPECIFIED ATRIAL FIBRILLATION (4) Hypertension Code(s): I10 - ESSENTIAL (PRIMARY) HYPERTENSION Qualifiers: Hypertension type: essential hypertension Qualified Code(s): I10 - Essential (primary) hypertension (5) Paroxysmal atrial fibrillation Code(s): I48.0 - PAROXYSMAL ATRIAL FIBRILLATION
--- NOTE | 2019-01-03 13:26 | PN ---
Progress Note (short form) - Note Progress Note: less fatigued feels improved Vital Signs Period Temp Pulse Resp BP Sys/Hill Pulse Ox Last 24 Hr 98.1 F-98.7 F 98-116 20-20 100-128/65-71 94-95 cor-rrr lungs decreased bs at bases abd soft,nt ext venous stasis changes CBC, BMP 01/02/19 05:15 01/02/19 05:15 Microbiology 12/31/18 20:09 Blood - Peripheral Venous Blood Culture - Preliminary NO GROWTH OBTAINED AFTER 48 HOURS, INCUBATION TO CONTINUE FOR 3 DAYS. 12/31/18 20:12 Blood - Peripheral Venous Blood Culture - Preliminary NO GROWTH OBTAINED AFTER 48 HOURS, INCUBATION TO CONTINUE FOR 3 DAYS. 12/31/18 20:09 Urine - Urine - Catheterized Urine Culture - Final NO GROWTH OBTAINED 01/01/19 21:30 Urine For Antigen Detection Legionella Antigen - Final- negative 01/01/19 21:30 Urine For Antigen Detection Streptococcus pneumoniae Antigen (M - Final-negative a/p fatigue resolved possible pneumonia cardiomegaly with small effusions- ?chf, consider echo amox allergy prolonged qtc history of afib continue doxycycline/azactam labs in am Problem List - Problems (1) Weakness Code(s): R53.1 - WEAKNESS (2) Leukocytosis Code(s): D72.829 - ELEVATED WHITE BLOOD CELL COUNT, UNSPECIFIED (3) Pneumonia Code(s): J18.9 - PNEUMONIA, UNSPECIFIED ORGANISM Qualifiers: Pneumonia type: due to unspecified organism Laterality: left Lung location: lower lobe of lung Qualified Code(s): J18.1 - Lobar pneumonia, unspecified organism (4) Allergy to amoxicillin Code(s): Z88.0 - ALLERGY STATUS TO PENICILLIN
[2019-01-03] MEDS: RIVAROXABAN 20 MG TABLET PO SCH (18:00)
[2019-01-03] MEDS: ACETAMINOPHEN 325 MG TABLET (FP) PO PRN (18:49)
[2019-01-03] MEDS: MONTELUKAST NA 10 MG TABLET PO SCH (21:41)
[2019-01-04] MEDS: AZTREONAM 1 GM in DEXTROSE 5%-WATER - 50 ML IVPB SCH ×3 (02:19→17:25)
[2019-01-04] MEDS ORDERED: PT OWN MED DRAWER 7, Y5N ONE ×2 (03:15→21:01)
[2019-01-04] MEDS: TOBRAMYCIN 0.3% OPHTH SOLN 5 ML BOTTLE OU SCH ×3 (06:37→21:24)
[2019-01-04] MEDS: PANTOPRAZOLE 20 MG TABLET (FP) PO SCH (09:09)
[2019-01-04] MEDS: metoPROLOL SUCCINATE 25 MG TAB.SR.24H (FP) PO SCH (09:09)
[2019-01-04] MEDS: RANITIDINE HCL 150 MG TABLET (FP) PO SCH ×2 (09:09→21:24)
[2019-01-04] MEDS: FOLIC ACID 1 MG TABLET (FP) PO SCH (09:09)
[2019-01-04 09:18] LABS: BASO % 1.4 % (0-2.0); EOS % 6.6 % (0-4.5); HEMATOCRIT 33.5 % (32.4-45.2); HEMOGLOBIN 11.7 GM/dL (10.7-15.3); LYMPH % 50.1 % (8-40); MCH 34.7 pg (25.7-33.7); MCHC 34.8 g/dl (32.0-36.0); MEAN CELL VOLUME 99.4 fl (80-96); MEAN PLT VOLUME 7.9 fl (7.5-11.1); MONO % 5.9 % (3.8-10.2); PLATELET COUNT 358 K/MM3 (134-434); RBC 3.37 M/mm3 (3.60-5.2); RDW 14.5 % (11.6-15.6); WHITE BLOOD COUNT 11.4 K/mm3 (4.0-10.0)
--- NOTE | 2019-01-04 11:43 | PN ---
Progress Note (short form) - Note Progress Note: No complaints no cough, SOB eating well Vital Signs - 24 hr 01/03/19 01/03/19 01/03/19 14:00 18:00 21:00 Temperature 98.2 F 97.6 F Pulse Rate 104 H 103 H Respiratory 18 20 Rate Blood Pressure 106/64 97/65 O2 Sat by Pulse 98 Oximetry (%) 01/04/19 01/04/19 01/04/19 05:50 08:44 10:00 Temperature 97.6 F 97.9 F Pulse Rate 66 71 Respiratory 20 20 Rate Blood Pressure 105/63 64/54 L O2 Sat by Pulse 94 L Oximetry (%) Current Medications Generic Name Dose Route Start Last Admin Trade Name Freq PRN Reason Stop Dose Admin Acetaminophen 650 mg 01/02/19 21:34 01/03/19 18:49 Tylenol - PO 650 mg Q6H PRN Administration PAIN LEVEL 1-5 OR FEVER Carbidopa/Levodopa 1 combo 01/02/19 14:00 01/04/19 06:37 Sinemet *Cr* 25/100 - PO 1 combo TID HOLDEN Administration Folic Acid 1 mg 01/01/19 10:00 01/04/19 09:09 Folic Acid - PO 1 mg DAILY HOLDEN Administration Aztreonam 1 gm/ Dextrose 50 mls @ 100 mls/hr 01/01/19 14:30 01/04/19 09:09 IVPB 100 mls/hr Q8H-IV HOLDEN Administration Protocol Metoprolol Succinate 25 mg 01/04/19 10:00 01/04/19 09:09 Toprol Xl - PO 25 mg DAILY HOLDEN Administration Montelukast Sodium 10 mg 01/01/19 22:00 01/03/19 21:41 Singulair - PO 10 mg HS HOLDEN Administration Non-Formulary Medication 40 mg 01/01/19 10:00 Pravastatin Sodium [Pravachol] PO DAILY HOLDEN Pantoprazole Sodium 20 mg 01/01/19 10:00 01/04/19 09:09 Protonix - PO 20 mg DAILY HOLDEN Administration Ranitidine HCl 150 mg 01/01/19 10:00 01/04/19 09:09 Zantac - PO 150 mg BID HOLDEN Administration Rivaroxaban 20 mg 01/01/19 18:00 01/03/19 18:00 Xarelto - PO 20 mg DAILY@1800 HOLDEN Administration Tobramycin Sulfate 2 drop 01/01/19 06:00 01/04/19 06:37 Tobrex Ophthalmic Solution - OU 2 drop TID HOLDEN Administration Laboratory Results - last 24 hr 01/04/19 01/04/19 05:40 05:40 WBC Cancelled 11.4 H Corrected WBC (auto) Cancelled RBC Cancelled 3.37 L Hgb Cancelled 11.7 Hct Cancelled 33.5 MCV Cancelled 99.4 H MCH Cancelled 34.7 H MCHC Cancelled 34.8 RDW Cancelled 14.5 Plt Count Cancelled 358 MPV Cancelled 7.9 Absolute Neuts (auto) Cancelled 4.1 Neutrophils % Cancelled 36.0 L D Lymphocytes % Cancelled 50.1 H D Monocytes % Cancelled 5.9 Eosinophils % Cancelled 6.6 H D Basophils % Cancelled 1.4 Nucleated RBC % Cancelled 0 Platelet Estimate Cancelled Platelet Comment Cancelled S1 S2 RRR Lungs-- no rales or ronchi Abd- soft, NT No edema PLAN IV antibiotics PT eval Echo done continue with meds Problem List - Problems (1) Failure to thrive Code(s): [id number] - Qualifiers: Failure to thrive age range: in adult Qualified Code(s): R62.7 - Adult failure to thrive (2) Leukocytosis Code(s): D72.829 - ELEVATED WHITE BLOOD CELL COUNT, UNSPECIFIED (3) Pneumonia Code(s): J18.9 - PNEUMONIA, UNSPECIFIED ORGANISM Qualifiers: Pneumonia type: due to unspecified organism Laterality: left Lung location: lower lobe of lung Qualified Code(s): J18.1 - Lobar pneumonia, unspecified organism (4) Atrial fibrillation Code(s): I48.91 - UNSPECIFIED ATRIAL FIBRILLATION
--- NOTE | 2019-01-04 15:57 | ECHO ---
Name: RANDALL MCKOY Exam:Adult Echocardiogram Study Date: 01/04/2019 02:34 PM Age: 88 yrs Reason For Study: PLEURAL EFFUSION Height: 61 in Weight: 118 lb BSA: 1.5 m2 MMode/2D Measurements & Calculations IVSd: 0.75 cm Ao root diam: 3.0 cm LVIDd: 4.7 cm LA dimension: 4.0 cm LVIDs: 3.0 cm LVPWd: 0.71 cm EDV(Teich): 102.2 ml TAPSE: 3.5 cm ESV(Teich): 34.8 ml Doppler Measurements & Calculations MV E max david: 57.3 cm/sec Ao V2 max: 150.3 cm/sec MV A max davdi: 68.6 cm/sec Ao max P.0 mmHg MV E/A: 0.84 MV dec time: 0.20 sec LV V1 max P.4 mmHg MR max david: 356.1 cm/sec LV V1 max: 92.5 cm/sec MR max P.7 mmHg TR max david: 200.2 cm/sec Med Peak E' David: 2.6 cm/sec TR max P.1 mmHg Med E/e': 21.8 Lat Peak E' David: 5.8 cm/sec Lat E/e': 9.8 Procedure A complete two-dimensional transthoracic echocardiogram was performed (2D, M-mode, Doppler and color flow Doppler). Left Ventricle The left ventricular size, thickness and function are normal. Ejection Fraction = 60%. The transmitra l spectral Doppler flow pattern is suggestive of impaired LV relaxation. The left ventricular wall ginna on is normal. Right Ventricle The right ventricle is normal in size and function. Atria Normal left and right atrial size and function. Mitral Valve There is mild mitral valve thickening. There is mild mitral annular calcification. There is trace neville ral regurgitation. Tricuspid Valve The tricuspid valve is normal in structure and function. There is Trace to mild tricuspid regurgitati on. Right ventricular systolic pressure is 20 mmhg. Assuming the RA pressure is 5 mmHg. Aortic Valve There is mild aortic valve thickening. No aortic regurgitation is present. Pericardium/Pleura There is no pericardial effusion. There is a pleural effusion present. Interpretation Summary The left ventricular size, thickness and function are normal Ejection Fraction = 60%. The right ventricle is normal in size and function. Normal left and right atrial size and function. There is mild mitral valve thickening. There is mild mitral annular calcification. There is trace mitral regurgitation. There is Trace to mild tricuspid regurgitation. Right ventricular systolic pressure is 20 mmhg. There is mild aortic valve thickening. There is a pleural effusion present. MD Jose Bojorquez 01/04/2019 03:56 PM
[2019-01-04] MEDS: RIVAROXABAN 20 MG TABLET PO SCH (17:25)
[2019-01-04] MEDS: ACETAMINOPHEN 325 MG TABLET (FP) PO PRN (18:01)
[2019-01-04] MEDS: MONTELUKAST NA 10 MG TABLET PO SCH (21:23)
[2019-01-04] MEDS: DOXYCYCLINE INJECTION 100 MG in DEXTROSE 5%-WATER - 100 ML IVPB SCH (21:26)
[2019-01-05] MEDS ORDERED: PT OWN MED DRAWER 7, Y5N ONE ×4 (01:38→21:40)
[2019-01-05] MEDS: AZTREONAM 1 GM in DEXTROSE 5%-WATER - 50 ML IVPB SCH ×3 (01:42→18:17)
[2019-01-05] MEDS: PANTOPRAZOLE 20 MG TABLET (FP) PO SCH (09:28)
[2019-01-05] MEDS: metoPROLOL SUCCINATE 25 MG TAB.SR.24H (FP) PO SCH (09:28)
[2019-01-05] MEDS: RANITIDINE HCL 150 MG TABLET (FP) PO SCH ×2 (09:28→21:43)
[2019-01-05] MEDS: FOLIC ACID 1 MG TABLET (FP) PO SCH (09:28)
[2019-01-05] MEDS: DOXYCYCLINE INJECTION 100 MG in DEXTROSE 5%-WATER - 100 ML IVPB SCH ×2 (10:15→21:44)
--- NOTE | 2019-01-05 11:10 | PN ---
Progress Note (short form) - Note Progress Note: No complaints no cough, SOB Vital Signs - 24 hr 01/04/19 01/04/19 01/04/19 13:13 18:00 21:00 Temperature 98.2 F 98.1 F Pulse Rate 69 66 Respiratory 17 20 18 Rate Blood Pressure 95/53 L 100/60 O2 Sat by Pulse 93 L Oximetry (%) 01/04/19 01/05/19 01/05/19 22:00 05:50 10:00 Temperature 98.3 F 98.1 F 98.0 F Pulse Rate 68 67 73 Respiratory 18 20 20 Rate Blood Pressure 101/62 112/67 100/67 O2 Sat by Pulse Oximetry (%) Current Medications Generic Name Dose Route Start Last Admin Trade Name Freq PRN Reason Stop Dose Admin Acetaminophen 650 mg 01/02/19 21:34 01/04/19 18:01 Tylenol - PO 650 mg Q6H PRN Administration PAIN LEVEL 1-5 OR FEVER Carbidopa/Levodopa 1 combo 01/02/19 14:00 01/04/19 21:24 Sinemet *Cr* 25/100 - PO 1 combo TID HOLDEN Administration Folic Acid 1 mg 01/01/19 10:00 01/05/19 09:28 Folic Acid - PO 1 mg DAILY HOLDEN Administration Aztreonam 1 gm/ Dextrose 50 mls @ 100 mls/hr 01/01/19 14:30 01/05/19 09:29 IVPB 100 mls/hr Q8H-IV HOLDEN Administration Protocol Doxycycline Hyclate 100 mg/ 100 mls @ 100 mls/hr 01/04/19 22:00 01/05/19 10: 15 Dextrose IVPB 100 mls/hr BID HOLDEN Administration Metoprolol Succinate 25 mg 01/04/19 10:00 01/05/19 09:28 Toprol Xl - PO 25 mg DAILY HODLEN Administration Montelukast Sodium 10 mg 01/01/19 22:00 01/04/19 21:23 Singulair - PO 10 mg HS HOLDEN Administration Non-Formulary Medication 40 mg 01/01/19 10:00 Pravastatin Sodium [Pravachol] PO DAILY HOLDEN Pantoprazole Sodium 20 mg 01/01/19 10:00 01/05/19 09:28 Protonix - PO 20 mg DAILY HOLDEN Administration Ranitidine HCl 150 mg 01/01/19 10:00 01/05/19 09:28 Zantac - PO 150 mg BID HOLDEN Administration Rivaroxaban 20 mg 01/01/19 18:00 01/04/19 17:25 Xarelto - PO 20 mg DAILY@1800 HOLDEN Administration Tobramycin Sulfate 2 drop 01/01/19 06:00 01/04/19 21:24 Tobrex Ophthalmic Solution - OU 2 drop TID HOLDEN Administration S1 S2 RRR Lungs-- no rales or ronchi Abd- soft, NT No edema PLAN IV antibiotics PT eval Echo done-- normal EF continue with meds Problem List - Problems (1) Failure to thrive Code(s): [id number] - Qualifiers: Failure to thrive age range: in adult Qualified Code(s): R62.7 - Adult failure to thrive (2) Leukocytosis Code(s): D72.829 - ELEVATED WHITE BLOOD CELL COUNT, UNSPECIFIED (3) Pneumonia Code(s): J18.9 - PNEUMONIA, UNSPECIFIED ORGANISM Qualifiers: Pneumonia type: due to unspecified organism Laterality: left Lung location: lower lobe of lung Qualified Code(s): J18.1 - Lobar pneumonia, unspecified organism (4) Atrial fibrillation Code(s): I48.91 - UNSPECIFIED ATRIAL FIBRILLATION
--- NOTE | 2019-01-05 15:13 | PN ---
Progress Note (short form) - Note Progress Note: less fatigued feels improved less cough Vital Signs Period Temp Pulse Resp BP Sys/Hill Pulse Ox Last 24 Hr 98.0 F-98.3 F 66-73 18-20 100-112/60-67 93 cor-rrr lungs decreased bs at bases abd soft,nt ext no edema, +venous stasis CBC, BMP 01/04/19 05:40 01/02/19 05:15 Microbiology 12/31/18 20:09 Blood - Peripheral Venous Blood Culture - Preliminary NO GROWTH OBTAINED AFTER 96 HOURS, INCUBATION TO CONTINUE FOR 1 DAYS. 12/31/18 20:12 Blood - Peripheral Venous Blood Culture - Preliminary NO GROWTH OBTAINED AFTER 96 HOURS, INCUBATION TO CONTINUE FOR 1 DAYS. 12/31/18 20:09 Urine - Urine - Catheterized Urine Culture - Final NO GROWTH OBTAINED 01/01/19 21:30 Urine For Antigen Detection Legionella Antigen - Final 01/01/19 21:30 Urine For Antigen Detection Streptococcus pneumoniae Antigen (M - Final a/p fatigue resolved leukocytosis resolving possible pneumonia cardiomegaly with small effusions- ?chf, consider echo amox allergy prolonged qtc history of afib day #5 antibiotics doxycycline/azactam can switch to po doxycycline alone in am to complete 7 days please call back if needed Problem List - Problems (1) Weakness Code(s): R53.1 - WEAKNESS (2) Leukocytosis Code(s): D72.829 - ELEVATED WHITE BLOOD CELL COUNT, UNSPECIFIED (3) Pneumonia Code(s): J18.9 - PNEUMONIA, UNSPECIFIED ORGANISM Qualifiers: Pneumonia type: due to unspecified organism Laterality: left Lung location: lower lobe of lung Qualified Code(s): J18.1 - Lobar pneumonia, unspecified organism (4) Allergy to amoxicillin Code(s): Z88.0 - ALLERGY STATUS TO PENICILLIN
[2019-01-05] MEDS: TOBRAMYCIN 0.3% OPHTH SOLN 5 ML BOTTLE OU SCH ×2 (15:35→21:45)
[2019-01-05] MEDS: RIVAROXABAN 20 MG TABLET PO SCH (17:48)
[2019-01-05] MEDS: ACETAMINOPHEN 325 MG TABLET (FP) PO PRN (18:19)
[2019-01-05] MEDS: MONTELUKAST NA 10 MG TABLET PO SCH (21:43)
[2019-01-06] MEDS: AZTREONAM 1 GM in DEXTROSE 5%-WATER - 50 ML IVPB SCH ×2 (01:16→09:06)
[2019-01-06] MEDS: TOBRAMYCIN 0.3% OPHTH SOLN 5 ML BOTTLE OU SCH ×2 (06:51→14:37)
[2019-01-06] MEDS ORDERED: PT OWN MED DRAWER 7, Y5N ONE (09:05)
[2019-01-06] MEDS: FOLIC ACID 1 MG TABLET (FP) PO SCH (09:06)
[2019-01-06] MEDS: PANTOPRAZOLE 20 MG TABLET (FP) PO SCH (09:06)
[2019-01-06] MEDS: RANITIDINE HCL 150 MG TABLET (FP) PO SCH (09:06)
[2019-01-06] MEDS: metoPROLOL SUCCINATE 25 MG TAB.SR.24H (FP) PO SCH (09:07)
[2019-01-06 09:11] LABS: BASO % 1.2 % (0-2.0); HEMATOCRIT 34.2 % (32.4-45.2); HEMOGLOBIN 11.7 GM/dL (10.7-15.3); LYMPH % 54.3 % (8-40); MCH 33.8 pg (25.7-33.7); MCHC 34.2 g/dl (32.0-36.0); MEAN CELL VOLUME 98.8 fl (80-96); MEAN PLT VOLUME 7.5 fl (7.5-11.1); MONO % 4.9 % (3.8-10.2); NEUT % 34.6 % (42.8-82.8); PLATELET COUNT 385 K/MM3 (134-434); RBC 3.47 M/mm3 (3.60-5.2); RDW 14.9 % (11.6-15.6); WHITE BLOOD COUNT 11.5 K/mm3 (4.0-10.0)
[2019-01-06 09:48] LABS: ALBUMIN 2.5 g/dl (3.4-5.0); ALK PHOS 85 U/L (45-117); ANION GAP 6 MMOL/L (8-16); BILIRUBIN,TOTAL 0.3 mg/dL (0.2-1); BLOOD UREA NITROGEN 23 mg/dL (7-18); CALCIUM 8.4 mg/dL (8.5-10.1); CHLORIDE 105 mmol/L (98-107); CO2 30 mmol/L (21-32); CREATININE 0.5 mg/dL (0.55-1.3); GLUCOSE,RANDOM 78 mg/dL (74-106); POTASSIUM 4.3 mmol/L (3.5-5.1); SGOT/AST 20 U/L (15-37); SGPT/ALT 14 U/L (13-61); SODIUM 142 mmol/L (136-145); TOT PROT 5.2 g/dl (6.4-8.2)
[2019-01-06] MEDS: DOXYCYCLINE INJECTION 100 MG in DEXTROSE 5%-WATER - 100 ML IVPB SCH (10:02)
--- NOTE | 2019-01-06 11:09 | DS ---
Physical Examination Vital Signs: Vital Signs Temperature 98.2 F 01/06/19 06:00 Pulse Rate 67 01/06/19 06:00 Respiratory Rate 20 01/06/19 06:00 Blood Pressure 102/56 L 01/06/19 06:00 O2 Sat by Pulse Oximetry (%) 93 L 01/04/19 21:00 Constitutional: Yes: No Distress, Calm Cardiovascular: Yes: Pulse Irregular Respiratory: Yes: CTA Bilaterally Gastrointestinal: Yes: Normal Bowel Sounds, Soft. No: Tenderness Edema: No Labs: CBC, BMP 01/06/19 07:45 01/06/19 07:45 Discharge Summary Reason For Visit: FAILURE TO THRIVE Current Active Problems Allergy to amoxicillin (Acute) Aspiration pneumonia (Acute) Failure to thrive (Acute) Leukocytosis (Acute) Pneumonia (Acute) Weakness (Acute) Hospital Course: Admitted for poor oral intake, toxic metabolic encephalopathy due to pneumonia Seen by ID-- started on Aztreonam and Doxycycline Pt better appetite is much better- she is eating 100% ! stable for dc to STR-- on po Doxycycline Condition: Improved - Instructions Diet, Activity, Other Instructions: recheck CXR in one month for resolution of pneumonia Referrals: Rene Hernandez MD [Primary Care Provider] - Disposition: [facility]ILITY - Home Medications Comprehensive Discharge Medication List: Ambulatory Orders Amlodipine Besylate 10 mg PO DAILY 12/13/15 Montelukast Na [Singulair -] 10 mg PO HS 12/13/15 Omeprazole [Prilosec] 20 mg PO DAILY 12/13/15 Pravastatin Sodium [Pravachol] 40 mg PO DAILY 12/13/15 Folic Acid 1 mg PO DAILY 05/31/18 Rivaroxaban [Xarelto -] 20 mg PO DAILY 05/31/18 Azithromycin [Zithromax -] 250 mg PO DAILY 12/31/18 Clarithromycin [Biaxin -] 500 mg PO BID 12/31/18 Prednisone 10 mg PO DAILY 12/31/18 Ranitidine HCl [Zantac] 150 mg PO BID 12/31/18 Tobramycin 0.3% Ophth Soln [Tobrex *Ophthalmic Solution*] 2 drop TID 12/31/18
[2019-01-06 12:22] VITALS: BP 109/67; PULSE 71; TEMP 98.1
[2019-01-06 13:12] LABS: ANISOCYTOSIS 1+; MACROCYTOSIS 0; PLATELET ESTIMATE NORMAL
[2019-01-06] MEDS ORDERED: DOXYCYCLINE HYCLATE 100 MG CAPSULE PO SCH (18:00)
== END 2019-01-06 16:53 | DRG 177 ==
LOC: JER 17:46 → JERBED 23:37 → OBSVTOIN 01-01 01:04 → J6S 01-01 03:53
PROVIDERS: ADMIT Internal Medicine; ATTEND Internal Medicine
DX: J69.0 Pneumonitis due to inhalation of food and vomit (principal); G92 Toxic encephalopathy; J98.11 Atelectasis; J90 Pleural effusion, not elsewhere classified; G20 Parkinson's disease; Z79.01 Long term (current) use of anticoagulants; J45.909 Unspecified asthma, uncomplicated; E78.5 Hyperlipidemia, unspecified; K21.9 Gastro-esophageal reflux disease without esophagitis; I45.81 Long QT syndrome; I48.0 Paroxysmal atrial fibrillation; Z88.0 Allergy status to penicillin; R62.7 Adult failure to thrive; I87.8 Other specified disorders of veins; R23.3 Spontaneous ecchymoses; D75.89 Other specified diseases of blood and blood-forming organs; R81 Glycosuria
CPT/HCPCS: 36415; 70450-TC; 71045-TC-FY; 71250-TC; 80048; 80053; 81003; 82550; 82553; 82803; 83605; 83735; 83880; 84100; 84484; 85025; 85027; 85610; 85730; 87040; 87086; 87804; 87899; 93005; 93010; 93306-TC; 97116-GP; 97162-GP; 99284-25; G0378; J0131

== ENCOUNTER 2019-05-02 11:24 | Inpatient (IN) | payer OTHER ==
--- NOTE | 2019-05-02 12:23 | PDOC ---
History of Present Illness - General Chief Complaint: Shortness of Breath Stated Complaint: Shortness of Breath Time Seen by Provider: 05/02/19 11:55 History Source: Patient Exam Limitations: No Limitations - History of Present Illness Initial Comments: 89 yo F w a hx of HTN, HLD, A-fib on Xarelto, right leg DVT, GERD, and asthma presents to the ER after an episode of SOB earlier today while she was sitting down in [employer]. She states she felt like it was difficult for her to get air inside. She says she has never felt like this in the past and her friend told her to come to the ER for the SOB. She denied having chest pain at any point today. She endorses recent dyspnea on exertion especially walking up hills of late. She is typically able to ambulate with a walker but she has been having more SOB with walking recently. She had a right leg DVT years ago which is why she is on xarelto. She was at her PCP's office yesterday where she had margaret bandages wrapped around her b/l legs to prevent them from swelling up. She also endorses an ulcer under her left calf which was bandaged by her pcp yesterday. She does endorse increased amounts of b/l leg swelling over the past few months. PCP: Rene Hernandez Allergies: amoxicillin, atorvastatin, hctz Social Hx: lives at home with an aid PSH: Hysterectomy, left arm surgery. Past History - Past Medical History Allergies/Adverse Reactions: Allergies Allergy/AdvReac Type Severity Reaction Status Date / Time amoxicillin [Amoxicillin] Allergy Intermediate Rash Verified 05/02/19 11:32 atorvastatin calcium Allergy Verified 05/02/19 11:32 [From Lipitor] hydrochlorothiazide Allergy Verified 05/02/19 11:32 Home Medications: Ambulatory Orders Amlodipine Besylate 10 mg PO DAILY 12/13/15 Montelukast Na [Singulair -] 10 mg PO HS 12/13/15 Omeprazole [Prilosec] 20 mg PO DAILY 12/13/15 Pravastatin Sodium [Pravachol] 40 mg PO DAILY 12/13/15 Folic Acid 1 mg PO DAILY 05/31/18 Rivaroxaban [Xarelto -] 20 mg PO DAILY 05/31/18 Ranitidine HCl [Zantac] 150 mg PO BID 12/31/18 Tobramycin 0.3% Ophth Soln [Tobrex Ophthalmic Solution -] 2 drop TID 12/31/18 Carbidopa/Levodopa *Cr* 25/100 [Sinemet *Cr* 25/100 -] 1 combo PO TID #60 tablet.er 01/06/19 Doxycycline Hyclate [Vibramycin -] 100 mg PO BID@1000,1800 #14 capsule 01/06/19 Asthma: Yes Cardiac Disorders: Yes (a-fib, clots) COPD: No GI Disorders: Yes (gerd) HTN: Yes Hypercholesterolemia: Yes - Surgical History Neurologic Surgery: Yes (sinus polyps 1190) - Immunization History Immunization Up to Date: Yes - Suicide/Smoking/Psychosocial Hx Smoking Status: No Smoking History: Never smoked Have you smoked in the past 12 months: No Number of Cigarettes Smoked Daily: 0 Hx Alcohol Use: No Drug/Substance Use Hx: No Substance Use Type: None Hx Substance Use Treatment: No Review of Systems - Review of Systems Able to Perform ROS?: Yes Comments:: CONSTITUTIONAL: + Fatigue. No fever, no chills EYES: No visual changes ENT: No ear pain, no sore throat CARDIOVASCULAR: No chest pain, no palpitations RESPIRATORY: + SOB. No cough GI: No abdominal pain, no nausea, no vomiting, no constipation, no diarrhea GENITOURINARY: No dysuria, no frequency, no hematuria MUSKULOSKELETAL: No backpain, + joint pain, no myalgias SKIN: + rash NEURO: No headache Constitutional: No: Chills *Physical Exam - Vital Signs Last Vital Signs Temp Pulse Resp BP Pulse Ox 97.8 F 79 18 115/71 98 05/02/19 11:29 05/02/19 11:29 05/02/19 11:29 05/02/19 11:05/02/19 11:29 - Physical Exam Comments: CONSTITUTIONAL: Well-appearing; well-nourished; in no apparent distress HEAD: Normocephalic; atraumatic EYES: PERRL; EOM intact ENMT: External appears normal; normal oropharynx NECK: Supple; non-tender; no cervical lymphadenopathy CARD: Normal S1, S2; no murmurs, rubs, or gallops RESP: Normal chest excursion with respiration; breath sounds clear and equal bilaterally; no wheezes, rhonchi, or rales ABD: Soft, non-distended; non-tender; no palpable organomegaly, no palpable hernias EXT: Limited ROM in all four extremities; The b/l legs are discolored and darkened. There is an ulcer under her left calf. The left leg has 1+ edema. Distal pulses intact SKIN: Warm, dry NEURO: No focal neurological deficiencies. ED Treatment Course - LABORATORY CBC & Chemistry Diagram: 05/02/19 12:15 05/02/19 12:30 - RADIOLOGY Radiology Studies Ordered: Category Date Time Status CHEST X-RAY PORTABLE* [RAD] Stat Radiology 05/02/19 12:12 Ordered Medical Decision Making - Medical Decision Making 89 yo F w a hx of HTN, HLD, A-fib on Xarelto, right leg DVT, GERD, and asthma presents to the ER after an episode of SOB earlier today while she was sitting down in [employer]. MDM: the SOB is vague. She has clear breath sounds and is satting at 100% on ra. She has a hx of DVT but is currently on xarelto. Plan: Will obtain basic labs including cbc, cmp, troponin, coags, bnp. Will also get an ekg, CXR, and then re-assess. D-Dimer elevated - CTA negative for PE EKG shows inverted T waves in leads 3,4,V3, aVR, V1 which are unchanged from prior EKG BNP elevated to 900 Will admit the patient to Tele obs for a stress test and cardiac consultation. *DC/Admit/Observation/Transfer Diagnosis at time of Disposition: Shortness of breath, History of DVT (deep vein thrombosis) - Discharge Dispostion Condition at time of disposition: Stable Decision to Admit order: Yes - Referrals Referrals: Rene Hernandez MD [Primary Care Provider] - - Patient Instructions - Post Discharge Activity
[2019-05-02 13:24] LABS: EOS % 3.7 % (0-4.5); HEMATOCRIT 37.5 % (32.4-45.2); HEMOGLOBIN 12.5 GM/dL (10.7-15.3); LYMPH % 49.4 % (8-40); MCH 32.1 pg (25.7-33.7); MCHC 33.3 g/dl (32.0-36.0); MEAN CELL VOLUME 96.4 fl (80-96); MEAN PLT VOLUME 7.7 fl (7.5-11.1); MONO % 5.3 % (3.8-10.2); NEUT % 40.6 % (42.8-82.8); PLATELET COUNT 291 K/MM3 (134-434); RBC 3.89 M/mm3 (3.60-5.2); RDW 14.4 % (11.6-15.6); WHITE BLOOD COUNT 10.8 K/mm3 (4.0-10.0)
[2019-05-02 13:42] LABS: INR 1.15 (0.83-1.09); PROTHROMBIN TIME (PATIENT) 13.6 SEC (9.7-13.0)
[2019-05-02 13:43] LABS: ALBUMIN 3.8 g/dl (3.4-5.0); BILIRUBIN,TOTAL 0.5 mg/dL (0.2-1); CREATININE 0.7 mg/dL (0.55-1.3); POTASSIUM 3.4 mmol/L (3.5-5.1); TOT PROT 6.4 g/dl (6.4-8.2)
[2019-05-02 13:44] LABS: ACTIVATED PTT 34.7 SECONDS (25.2-36.5)
[2019-05-02 13:45] LABS: URINE APPEARANCE CLEAR; URINE BILIRUBIN NEGATIVE (NEGATIVE); URINE COLOR YELLOW; URINE GLUCOSE (UA) NEGATIVE (NEGATIVE); URINE KETONE NEGATIVE (NEGATIVE); URINE LEUK ESTERASE NEGATIVE (NEGATIVE); URINE NITRITE NEGATIVE (NEGATIVE); URINE PROTEIN NEGATIVE (NEGATIVE); URINE UROBILINOGEN 0.2 mg/dL (0.2-1.0)
[2019-05-02 13:45] LABS: N-TERMINAL BNP 903.2 pg/ml (5-450)
--- NOTE | 2019-05-02 13:47 | PDOC ---
Documentation entered by Olya Snow SCRIBE, acting as scribe for Dajuan Alcantara MD. Dajuan Alcantara MD: This documentation has been prepared by the bessy, Olya Snow SCRIBE, under my direction and personally reviewed by me in its entirety. I confirm that the documentation accurately reflects all work, treatment, procedures, and medical decision making performed by me. Attending Attestation - Resident Resident Name: Mitchel Brewer - ED Attending Attestation I have performed the following: I have examined & evaluated the patient, The case was reviewed & discussed with the resident, I agree w/resident's findings & plan, Exceptions are as noted - HPI HPI: 05/02/19 13:21 The patient is an 89 year old female with a significant past medical history of hypertension, hyperlipidemia, afib (on anticoagulants), GERD, recurrent UTIs, and asthma who presents to the emergency department with a sudden onset of shortness of breath earlier today. The patient reports that she was sitting at [employer] today when she felt a sudden onset of her SOB. she states that she was feeling okay when she woke up this morning. She denies sudden onset of SOB in the past but endorses her SOB after walking several blocks (she states this has been happening for a few months). The patient also reports some recent leg swelling bilaterally (history of blood clots in right leg). She endorses feeling weak this morning s/p her episode of shortness of breath. The patient denies any fever, chills, nausea, vomiting, diarrhea, constipation or urinary symptoms she denies any chest pain, headache or dizziness. The patient denies any other complaints. - Physicial Exam PE: 05/02/19 13:47 GENERAL: Awake, alert, and fully oriented, in no acute distress HEAD: No signs of trauma EYES: EOMI, sclera anicteric, conjunctiva clear ENT: Auricles normal inspection, hearing grossly normal, nares patent,Moist mucosa NECK: Normal ROM, supple, LUNGS: Breath sounds equal, clear to auscultation bilaterally. Diminished breath sounds at the bases bilaterally. HEART: Regular rate and rhythm, normal S1 and S2, no murmurs, rubs or gallops ABDOMEN: Soft, nontender, No guarding, no rebound. No masses EXTREMITIES: Normal range of motion. No clubbing or cyanosis. No cords, erythema, or tenderness Small ulceration left calf. 1+ pitting edema bilaterally. NEUROLOGICAL: Cranial nerves II through XII grossly intact. Normal speech, SKIN: Warm, Dry, normal turgor, no rashes or lesions noted. - Medical Decision Making 05/02/19 13:49 Vital Signs Temp Pulse Resp BP Pulse Ox 97.8 F 79 18 115/71 98 05/02/19 11:29 05/02/19 11:29 05/02/19 11:29 05/02/19 11:29 05/02/19 11:29 89-year-old female presents with acute onset shortness of breath. Patient reports that this episode occurred very recently but denies any chest pain. Reports worsened dyspnea on exertion or last several weeks to months. No chest pain. Patient does have a history of an unprovoked DVT 5 years ago that now resolved and is on anticoagulants. We'll need to rule out myocardial infarction versus congestive heart failure. Pulmonary embolism in differential though less likely. We'll send d-dimer, obtain labs including troponin and admit the patient to the hospital. 05/02/19 15:17 CBC, BMP 05/02/19 12:15 05/02/19 12:30 CMP Sodium 141 mmol/L (136-145) 05/02/19 12:30 Potassium 3.4 mmol/L (3.5-5.1) L 05/02/19 12:30 Chloride 103 mmol/L (98-107) 05/02/19 12:30 Carbon Dioxide 29 mmol/L (21-32) 05/02/19 12:30 Anion Gap 9 MMOL/L (8-16) 05/02/19 12:30 BUN 26 mg/dL (7-18) H 05/02/19 12:30 Creatinine 0.7 mg/dL (0.55-1.3) 05/02/19 12:30 Est GFR (CKD-EPI)AfAm 90.29 05/02/19 12:30 Est GFR (CKD-EPI)NonAf 77.90 05/02/19 12:30 Random Glucose 74 mg/dL (74-106) 05/02/19 12:30 Calcium 9.0 mg/dL (8.5-10.1) 05/02/19 12:30 Total Bilirubin 0.5 mg/dL (0.2-1) 05/02/19 12:30 AST 20 U/L (15-37) 05/02/19 12:30 ALT 8 U/L (13-61) L 05/02/19 12:30 Alkaline Phosphatase 90 U/L (45-117) 05/02/19 12:30 Troponin I < 0.02 ng/ml (0.00-0.05) 05/02/19 12:30 B-Natriuretic Peptide 903.2 pg/ml (5-450) H 05/02/19 12:30 Total Protein 6.4 g/dl (6.4-8.2) 05/02/19 12:30 Albumin 3.8 g/dl (3.4-5.0) 05/02/19 12:30 Heart Score/ECG Review #1 ECG reviewed & interpreted by me at: 11:35 05/02/19 14:32 NSR 77 with 1st degree AV block, incomplete RBBB, T wave flat V4-V6, TWI V3, III , avF, QTC 488 msec
--- NOTE | 2019-05-02 22:11 | CON.CARD ---
Consult - History of Present Illness History of Present Illness: The patient is a 31 year old male, with a significant PMH of paroxysmal Afib ( on Apixaban), hypertension, hyperlipidemia, diabetes, and seizure disorder, who presents to the emergency department today complaining of bilateral lower extremity edema for 2.5 months. He reports being seen in the ED 2.5 months ago, where he was diagnosed with pneumonia and his Keppra was changed to Oxcarbazepine. He has dealt with bilateral lower extremity edema since, which he believes is secondary to the medication change. Patient notes his clothes don t fit secondary to the edema, and swelling is exacerbated with prolonged standing and walking. Patient additionally reports associated chest pain and dyspnea for the past week. He notes the chest pain is localized to the left side of the chest, sharp, stabbing, and an 8/10 in nature. He reports the chest pain is exacerbated with moving the left upper extremity, deep inspiration, or coughing, and he believes it is muscular in nature. Patient notes he has felt short of breath as well, with intermittent dyspnea on exertion with walking up hills and stairs by his apartment. He denies orthopnea. Patient had stress test done 2.5 months ago, where it demonstrated LVEF at 44%. 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 Cardio/Vascular: Yes: HTN, Hyperlipdemia - Past Surgical History Past Surgical History: Yes: Hysterectomy - Alcohol/Substance Use Hx Alcohol Use: No History of Substance Use: reports: None - Smoking History Smoking history: Never smoked Have you smoked in the past 12 months: No Aproximately how many cigarettes per day: 0 - Social History ADL: Independent History of Recent Travel: No Home Medications - Allergies Allergies/Adverse Reactions: Allergies Allergy/AdvReac Type Severity Reaction Status Date / Time amoxicillin [Amoxicillin] Allergy Intermediate Rash Verified 05/02/19 11:32 atorvastatin calcium Allergy Verified 05/02/19 11:32 [From Lipitor] hydrochlorothiazide Allergy Verified 05/02/19 11:32 - Home Medications Home Medications: Ambulatory Orders Amlodipine Besylate 10 mg PO DAILY 12/13/15 Montelukast Na [Singulair -] 10 mg PO HS 12/13/15 Omeprazole [Prilosec] 20 mg PO DAILY 12/13/15 Pravastatin Sodium [Pravachol] 40 mg PO DAILY 12/13/15 Folic Acid 1 mg PO DAILY 05/31/18 Rivaroxaban [Xarelto -] 20 mg PO DAILY 05/31/18 Ranitidine HCl [Zantac] 150 mg PO BID 12/31/18 Tobramycin 0.3% Ophth Soln [Tobrex Ophthalmic Solution -] 2 drop TID 12/31/18 Carbidopa/Levodopa *Cr* 25/100 [Sinemet *Cr* 25/100 -] 1 combo PO TID #60 tablet.er 01/06/19 Doxycycline Hyclate [Vibramycin -] 100 mg PO BID@1000,1800 #14 capsule 01/06/19 Review of Systems - Review of Systems Constitutional: reports: No Symptoms Eyes: reports: No Symptoms HENT: reports: No Symptoms Neck: reports: No Symptoms Cardiovascular: reports: Shortness of Breath Respiratory: reports: SOB Gastrointestinal: reports: No Symptoms Genitourinary: reports: No Symptoms Breasts: reports: No Symptoms Reported Musculoskeletal: reports: No Symptoms Integumentary: reports: No Symptoms Neurological: reports: No Symptoms Endocrine: reports: No Symptoms Hematology/Lymphatic: reports: No Symptoms Psychiatric: reports: No Symptoms Vital Signs: Vital Signs Temperature 97.8 F 05/02/19 11:29 Pulse Rate 78 05/02/19 20:24 Respiratory Rate 20 05/02/19 20:24 Blood Pressure 103/59 L 05/02/19 20:24 O2 Sat by Pulse Oximetry (%) 97 05/02/19 20:24 Constitutional: Yes: Well Nourished, No Distress, Calm Eyes: Yes: WNL, Conjunctiva Clear, EOM Intact HENT: Yes: WNL, Atraumatic, Normocephalic Neck: Yes: WNL, Supple, Trachea Midline Respiratory: Yes: WNL, Regular, CTA Bilaterally Gastrointestinal: Yes: WNL, Normal Bowel Sounds Renal/: Yes: WNL Cardiovascular: Yes: WNL, Regular Rate and Rhythm Musculoskeletal: Yes: WNL Extremities: Yes: WNL Integumentary: Yes: WNL Neurological: Yes: WNL, Alert, Oriented ...Motor Strength: WNL Psychiatric: Yes: WNL, Alert, Oriented - Other Data Labs, Other Data: CBC, BMP 05/02/19 12:15 05/02/19 12:30 INR, PTT INR 1.15 (0.83-1.09) H 05/02/19 12:15 Troponin, BNP 05/02/19 12:30 Troponin I < 0.02 B-Natriuretic Peptide 903.2 H Troponin, BNP 05/02/19 12:30 Troponin I < 0.02 B-Natriuretic Peptide 903.2 H Problem List - Problems (1) History of DVT (deep vein thrombosis) Code(s): Z86.718 - PERSONAL HISTORY OF OTHER VENOUS THROMBOSIS AND EMBOLISM (2) Shortness of breath Code(s): R06.02 - SHORTNESS OF BREATH (3) Abdominal cramping Code(s): R10.9 - UNSPECIFIED ABDOMINAL PAIN (4) Allergy to amoxicillin Code(s): Z88.0 - ALLERGY STATUS TO PENICILLIN (5) Aspiration pneumonia Code(s): J69.0 - PNEUMONITIS DUE TO INHALATION OF FOOD AND VOMIT (6) Asthma Code(s): J45.909 - UNSPECIFIED ASTHMA, UNCOMPLICATED Qualifiers: Asthma severity: mild intermittent Asthma complication type: uncomplicated (7) Atrial fibrillation Code(s): I48.91 - UNSPECIFIED ATRIAL FIBRILLATION (8) Chest pain Code(s): R07.9 - CHEST PAIN, UNSPECIFIED Qualifiers: Chest pain type: unspecified Qualified Code(s): R07.9 - Chest pain, unspecified (9) Closed fracture of trochlea of left humerus Code(s): S42.462A - DISP FX OF MEDIAL CONDYLE OF LEFT HUMERUS, INIT FOR CLOS FX (10) Closed olecranon fracture Code(s): S52.023A - DISP FX OF OLECRAN PRO W/O INTARTIC EXTN UNSP ULNA, INIT (11) Conjunctival hemorrhage of left eye Code(s): H11.32 - CONJUNCTIVAL HEMORRHAGE, LEFT EYE (12) Elbow fracture Code(s): S42.409A - UNSP FRACTURE OF LOWER END OF UNSP HUMERUS, INIT FOR CLOS FX (13) Failure to thrive Code(s): ZOM1360 - Qualifiers: Failure to thrive age range: in adult Qualified Code(s): R62.7 - Adult failure to thrive (14) Hyperlipidemia Code(s): E78.5 - HYPERLIPIDEMIA, UNSPECIFIED Qualifiers: Hyperlipidemia type: unspecified Qualified Code(s): E78.5 - Hyperlipidemia , unspecified (15) Hypertension Code(s): I10 - ESSENTIAL (PRIMARY) HYPERTENSION Qualifiers: Hypertension type: essential hypertension Qualified Code(s): I10 - Essential (primary) hypertension (16) Leukocytosis Code(s): D72.829 - ELEVATED WHITE BLOOD CELL COUNT, UNSPECIFIED (17) Paroxysmal atrial fibrillation Code(s): I48.0 - PAROXYSMAL ATRIAL FIBRILLATION (18) Pneumonia Code(s): J18.9 - PNEUMONIA, UNSPECIFIED ORGANISM Qualifiers: Pneumonia type: due to unspecified organism Laterality: left Lung location: lower lobe of lung Qualified Code(s): J18.1 - Lobar pneumonia, unspecified organism (19) Weakness Code(s): R53.1 - WEAKNESS Assessment/Plan - Problems (1) History of DVT (deep vein thrombosis) Code(s): Z86.718 - PERSONAL HISTORY OF OTHER VENOUS THROMBOSIS AND EMBOLISM (2) Shortness of breath Assessment/Plan: Pt says she had a stress test as outpatient several weeks ago. Denies hx chest pain. In the warm months, she walks daily to [employer] (3-4 blocks) at a slow pace ( walking fsater causes mild SOB). Hx "asthma". ECHO: normal LVEF. Lately, pain in knees has made walking more difficutl. Code(s): R06.02 - SHORTNESS OF BREATH (3) Asthma Code(s): J45.909 - UNSPECIFIED ASTHMA, UNCOMPLICATED Qualifiers: Asthma severity: mild intermittent Asthma complication type: uncomplicated (4) Paroxysmal atrial fibrillation Assessment/Plan: Consider diltiazem instead of amlodipine if needed for HR control. On DOAC. ECHO: normal LVEF; Code(s): I48.0 - PAROXYSMAL ATRIAL FIBRILLATION (5) Parkinson disease Code(s): G20 - PARKINSON'S DISEASE (6) Arthritis Code(s): M19.90 - UNSPECIFIED OSTEOARTHRITIS, UNSPECIFIED SITE (7) Hyperlipidemia Code(s): E78.5 - HYPERLIPIDEMIA, UNSPECIFIED Qualifiers: Hyperlipidemia type: unspecified Qualified Code(s): E78.5 - Hyperlipidemia , unspecified (8) Hypertension Assessment/Plan: on amlodipine Orthostatic VS. Code(s): I10 - ESSENTIAL (PRIMARY) HYPERTENSION Qualifiers: Hypertension type: essential hypertension Qualified Code(s): I10 - Essential (primary) hypertension (9) PAD (peripheral artery disease) Assessment/Plan: hyperpigmented bilateral LEs to mid-sterling f/u left LE wound with vascular MD, wound care. Code(s): I73.9 - PERIPHERAL VASCULAR DISEASE, UNSPECIFIED
[2019-05-02 22:41] VITALS: BMI 22.6
[2019-05-03] MEDS ORDERED: PATIENT'S OWN MEDICATION (NON-FORMULARY) (Pravastatin Sodium [Pravachol] 40 MG) PO SCH (10:00)
[2019-05-03] MEDS ORDERED: amLODIPine BESYLATE 10 MG TABLET (FP) PO SCH (10:00)
[2019-05-03] MEDS ORDERED: FUROSEMIDE 40 MG/4 ML INJECTABLE VIAL IVPUSH SCH (11:00)
[2019-05-03] MEDS: RANITIDINE HCL 150 MG TABLET (FP) PO SCH ×2 (11:41→22:03)
[2019-05-03] MEDS: FOLIC ACID 1 MG TABLET (FP) PO SCH (11:41)
--- NOTE | 2019-05-03 12:04 | EKG ---
Test Reason : Blood Pressure : / mmHG Vent. Rate : 077 BPM Atrial Rate : 077 BPM P-R Int : 282 ms QRS Dur : 100 ms QT Int : 432 ms P-R-T Axes : 041 -14 -17 degrees QTc Int : 488 ms SINUS RHYTHM WITH 1ST DEGREE A-V BLOCK INCOMPLETE RIGHT BUNDLE BRANCH BLOCK ANTEROLATERAL INFARCT (CITED ON OR BEFORE 31-DEC-2018) ABNORMAL ECG WHEN COMPARED WITH ECG OF 31-DEC-2018 18:12, NO SIGNIFICANT CHANGE WAS FOUND Confirmed by Jose Bojorquez MD ([id number]) on 05/03/2019 12:03:32 PM Referred By: Confirmed By:Jose Bojorquez MD
[2019-05-03] MEDS ORDERED: SIMETHICONE 80 MG TAB.CHEW (FP) PO PRN ×2 (13:19→14:32)
--- NOTE | 2019-05-03 13:45 | PN ---
Progress Note, Physician Chief Complaint: Pt A&(X3; no dizziness or chest pain. History of Present Illness: The patient is an 89 year old shite woman with a significant past medical history of hypertension, hyperlipidemia, afib (on anticoagulants),Parkinson's disease, GERD, recurrent UTIs, arthritis of hands and knees, osterporosis, and asthma, who presents to the emergency department with sudden onset of shortness of breath. The patient reports that she was sitting at [employer] today when she felt a sudden onset of SOB. she states that she was feeling okay when she woke up this morning. She denies sudden onset of SOB in the past but endorses SOB after walking several blocks (she states this has been happening for a few months). The patient also reports some recent leg swelling bilaterally (history of blood clots in right leg). She endorses feeling weak this morning s/p her episode of shortness of breath. The patient denies any fever, chills, nausea, vomiting, diarrhea, constipation or urinary symptoms she denies any chest pain, headache or dizziness. Pt says she has developed a "Small cut that does not heal" on her left calf. 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 - Current Medication List Current Medications: Active Medications Amlodipine Besylate (Norvasc -) 10 mg PO DAILY [facility] Last Admin: 05/03/19 11:41 Dose: 10 mg Carbidopa/Levodopa (Sinemet *Cr* 25/100 -) 1 combo PO TID [facility] Folic Acid (Folic Acid -) 1 mg PO DAILY [facility] Last Admin: 05/03/19 11:41 Dose: 1 mg Furosemide (Lasix Injection -) 40 mg IVPUSH DAILY [facility] Montelukast Sodium (Singulair -) 10 mg PO HS [facility] Non-Formulary Medication (Pravastatin Sodium [Pravachol]) 40 mg PO DAILY [facility] Ranitidine HCl (Zantac -) 150 mg PO BID [facility] Last Admin: 05/03/19 11:41 Dose: 150 mg Rivaroxaban (Xarelto) 20 mg PO 1800 [facility] Simethicone (Mylicon -) 80 mg PO ASDIR PRN PRN Reason: GAS Tobramycin Sulfate (Tobrex Ophthalmic Solution -) 2 drop OS TID [facility] - Objective Vital Signs: Vital Signs Temperature 97.7 F 05/03/19 09:00 Pulse Rate 73 05/03/19 09:00 Respiratory Rate 18 05/03/19 09:00 Blood Pressure 133/73 05/03/19 09:00 O2 Sat by Pulse Oximetry (%) 95 05/03/19 09:00 Constitutional: Yes: Calm Eyes: Yes: WNL HENT: Yes: WNL Neck: Yes: WNL Cardiovascular: Yes: S1, S2 Gastrointestinal: Yes: WNL ...Rectal Exam: Yes: Deferred Genitourinary: No: Anuria Breast(s): Yes: WNL Musculoskeletal: Yes: Muscle Weakness Extremities: Yes: Cool Edema: No Peripheral Pulses WNL: Yes Integumentary: Yes: WNL Neurological: Yes: Alert, Oriented Psychiatric: Yes: Alert, Oriented Labs: CBC, BMP 05/02/19 12:15 05/02/19 12:30 INR, PTT INR 1.15 (0.83-1.09) H 05/02/19 12:15 Abnormal Lab Results 05/03/19 05/04/19 05/04/19 14:35 07:21 07:21 MCV 96.1 H MPV 7.4 L Anion Gap 6 L 6 L BUN 21 H 24 H Random Glucose 108 H Calcium 8.1 L ALT 9 L Total Protein 5.6 L Albumin 3.0 L Problem List - Problems (1) History of DVT (deep vein thrombosis) Code(s): Z86.718 - PERSONAL HISTORY OF OTHER VENOUS THROMBOSIS AND EMBOLISM (2) Shortness of breath Assessment/Plan: Pt says she had a stress test as outpatient several weeks ago. Denies hx chest pain. In the warm months, she walks daily to [employer] (3-4 blocks) at a slow pace ( walking fsater causes mild SOB). Hx "asthma". ECHO: normal LVEF. Lately, pain in knees has made walking more difficutl. Code(s): R06.02 - SHORTNESS OF BREATH (3) Asthma Code(s): J45.909 - UNSPECIFIED ASTHMA, UNCOMPLICATED Qualifiers: Asthma severity: mild intermittent Asthma complication type: uncomplicated (4) Paroxysmal atrial fibrillation Assessment/Plan: Consider diltiazem instead of amlodipine if needed for HR control. On DOAC. ECHO: normal LVEF; Code(s): I48.0 - PAROXYSMAL ATRIAL FIBRILLATION (5) Parkinson disease Code(s): G20 - PARKINSON'S DISEASE (6) Arthritis Code(s): M19.90 - UNSPECIFIED OSTEOARTHRITIS, UNSPECIFIED SITE (7) Hyperlipidemia Code(s): E78.5 - HYPERLIPIDEMIA, UNSPECIFIED Qualifiers: Hyperlipidemia type: unspecified Qualified Code(s): E78.5 - Hyperlipidemia , unspecified (8) Hypertension Assessment/Plan: on amlodipine Orthostatic VS. Code(s): I10 - ESSENTIAL (PRIMARY) HYPERTENSION Qualifiers: Hypertension type: essential hypertension Qualified Code(s): I10 - Essential (primary) hypertension (9) PAD (peripheral artery disease) Assessment/Plan: hyperpigmented bilateral LEs to mid-sterling f/u left LE wound with vascular MD, wound care. Code(s): I73.9 - PERIPHERAL VASCULAR DISEASE, UNSPECIFIED
[2019-05-03] MEDS: TOBRAMYCIN 0.3% OPHTH SOLN 5 ML BOTTLE OS SCH ×2 (14:35→22:04)
--- NOTE | 2019-05-03 14:39 | HP ---
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 Cardiovascular: Yes: HTN, Hyperlipdemia ...: No - Past Surgical History Past Surgical History: Yes: Hysterectomy - Advance Directives Advance Directives: Yes: Living Will, Health Care Proxy - Smoking History Smoking history: Never smoked Have you smoked in the past 12 months: No Aproximately how many cigarettes per day: 0 - Alcohol/Substance Use Hx Alcohol Use: Yes (wine at dinnertime) History of Substance Use: reports: None - Social History ADL: Independent History of Recent Travel: No Home Medications - Allergies Allergies/Adverse Reactions: Allergies Allergy/AdvReac Type Severity Reaction Status Date / Time amoxicillin [Amoxicillin] Allergy Intermediate Rash Verified 05/02/19 11:32 atorvastatin calcium Allergy Verified 05/02/19 11:32 [From Lipitor] hydrochlorothiazide Allergy Verified 05/02/19 11:32 - Home Medications Home Medications: Ambulatory Orders Amlodipine Besylate 10 mg PO DAILY 12/13/15 Montelukast Na [Singulair -] 10 mg PO HS 12/13/15 Omeprazole [Prilosec] 20 mg PO DAILY 12/13/15 Pravastatin Sodium [Pravachol] 40 mg PO DAILY 12/13/15 Folic Acid 1 mg PO DAILY 05/31/18 Rivaroxaban [Xarelto -] 20 mg PO DAILY 05/31/18 Ranitidine HCl [Zantac] 150 mg PO BID 12/31/18 Tobramycin 0.3% Ophth Soln [Tobrex Ophthalmic Solution -] 2 drop TID 12/31/18 Carbidopa/Levodopa *Cr* 25/100 [Sinemet *Cr* 25/100 -] 1 combo PO TID #60 tablet.er 01/06/19 Doxycycline Hyclate [Vibramycin -] 100 mg PO BID@1000,1800 #14 capsule 01/06/19 Review of Systems - Review of Systems Constitutional: denies: Chills, Fever Physical Examination Vital Signs: Vital Signs Temperature 97.7 F 05/03/19 09:00 Pulse Rate 73 05/03/19 09:00 Respiratory Rate 18 05/03/19 09:00 Blood Pressure 133/73 05/03/19 09:00 O2 Sat by Pulse Oximetry (%) 95 05/03/19 09:00 Constitutional: Yes: No Distress, Calm Cardiovascular: Yes: Regular Rate and Rhythm Respiratory: Yes: Diminished Gastrointestinal: Yes: Normal Bowel Sounds, Soft. No: Tenderness Extremities: Yes: Other (chronic venous changes bilaterally, left leg wound) Edema: Yes (left leg edema) Labs: CBC, BMP 05/02/19 12:15 05/02/19 12:30 Imaging - Results Chest X-ray: Image Reviewed (no congestion) EKG: Image Reviewed Problem List - Problems (1) Parkinson disease Code(s): G20 - PARKINSON'S DISEASE (2) Shortness of breath Code(s): R06.02 - SHORTNESS OF BREATH (3) Hypertension Code(s): I10 - ESSENTIAL (PRIMARY) HYPERTENSION Qualifiers: Hypertension type: essential hypertension Qualified Code(s): I10 - Essential (primary) hypertension (4) Diastolic dysfunction Code(s): I51.89 - OTHER ILL-DEFINED HEART DISEASES Assessment/Plan start IV Lasix Monitor renal function Cardiology evaluation Chest CTAnegative for PE Physical therapy Wound Care evaluation
--- NOTE | 2019-05-03 14:56 | PN ---
Progress Note (short form) - Note Progress Note: Surgery Asked to evaluate patient with Left leg wound. Patient seen and examined at bedside. The patient is an 89 year old shite woman with a significant past medical history of hypertension, hyperlipidemia, afib (on anticoagulants),Parkinson's disease, GERD, recurrent UTIs, arthritis of hands and knees, osterporosis, and asthma and DVT, who presents to the emergency department with sudden onset of shortness of breath. The patient also reports some recent leg swelling bilaterally (history of blood clots in right leg). Patient states she first noticed the wound last week and it became more weepy and tender over the following days. She denies any fever, chills, nausea, vomiting, diarrhea, constipation or urinary symptoms she denies any chest pain, headache or dizziness. . Vital Signs Temp 97.7 F 05/03/19 09:00 Pulse 73 05/03/19 09:00 Resp 18 05/03/19 09:00 BP 133/73 05/03/19 09:00 Pulse Ox 95 05/03/19 09:00 Intake & Output 05/02/19 05/03/19 05/03/19 23:59 11:59 23:59 Intake Total 240 Balance 240 Weight 120 lb Intake: IV 0 SL 0 Oral 240 Other: Voiding Method Diaper Toilet # Unmeasured Voids Void 1 Height 5 ft 1 in Body Mass Index (BMI) 22.6 Weight Measurement Method Stated by Patient CBC, BMP 05/02/19 12:15 05/02/19 12:30 PE: A&Ox3, NAD unlabored resp on RA B/L LE with chronic skin changes and vasculitis extending over distal 1/2 circumferentially. compartments soft, supple and non-tender with +2DP pulses b/ l. Left calf with small, superficial stage 1 ulcer @ 1X1.5cm located over posterior aspect, scant SS d/c noted on dressing no evidence of tracking erythema or significant edema. NVID Problem List - Problems (1) PVD (peripheral vascular disease) Assessment/Plan: 89yo with PVD and chronic skin changes/venous stasis ulcer left LE with palpable pulses and no indication for surgical intervention 1) Bacitracin daily to left leg ulcer 2) compression stocking- margaret wrap daily 3) elevate legs when in bed 4) offload pressure sensitive areas. 5) re-consult surgery PRN. Evaluation and plan discussed with Dr Reyes Code(s): I73.9 - PERIPHERAL VASCULAR DISEASE, UNSPECIFIED (2) PAD (peripheral artery disease) Code(s): I73.9 - PERIPHERAL VASCULAR DISEASE, UNSPECIFIED
--- NOTE | 2019-05-03 16:04 | ECHO ---
Name: RANDALL MCKOY Exam:Adult Echocardiogram Study Date: 05/03/2019 02:56 PM Age: 89 yrs Reason For Study: chf Height: 61 in Weight: 120 lb BSA: 1.5 m2 MMode/2D Measurements & Calculations IVSd: 0.78 cm Ao root diam: 3.6 cm LVIDd: 4.6 cm LA dimension: 4.0 cm LVIDs: 3.1 cm ACS: 0.93 cm LVPWd: 0.96 cm IVSs: 1.0 cm LVPWs: 1.0 cm EDV(Teich): 95.8 ml ESV(Teich): 37.9 ml LVOT diam: 2.0 cm Doppler Measurements & Calculations MV E max david: 63.7 cm/sec Ao V2 max: 168.3 cm/sec MV A max david: 108.1 cm/sec Ao max P.3 mmHg MV E/A: 0.59 Ao V2 mean: 120.5 cm/sec Ao mean P.4 mmHg Ao V2 VTI: 35.8 cm SARANYA(I,D): 1.7 cm2 SARANYA(V,D): 1.7 cm2 LV V1 max P.3 mmHg SV(LVOT): 59.4 ml LV V1 mean P.0 mmHg LV V1 max: 90.1 cm/sec LV V1 mean: 65.7 cm/sec LV V1 VTI: 19.0 cm TR max david: 196.6 cm/sec Med Peak E' David: 6.8 cm/sec TR max P.5 mmHg Med E/e': 9.3 Lat Peak E' David: 6.7 cm/sec Lat E/e': 9.5 Procedure A two-dimensional transthoracic echocardiogram with color flow and Doppler was performed. The study w as technically difficult with many images being suboptimal in quality. Left Ventricle The left ventricular size, thickness and function are normal. Ejection Fraction = 60%. Diastolic dysf unction, Grade II, consistent with elevated left atrial pressure. Right Ventricle The right ventricle is normal in size and function. Atria The left atrium is mildly dilated. Right atrial size is normal. Mitral Valve There is mild to moderate mitral annular calcification. There is mild mitral regurgitation. Tricuspid Valve The tricuspid valve is not well visualized, but is grossly normal. There is mild tricuspid regurgitat ion. Right ventricular systolic pressure is normal. Aortic Valve There is moderate to severe aortic sclerosis.;. Mild valvular aortic stenosis. Pulmonic Valve The pulmonic valve is not well visualized. Great Vessels The aortic root is normal size. Pericardium/Pleura There is no pericardial effusion. Interpretation Summary The study was technically difficult with many images being suboptimal in quality. The left ventricular size, thickness and function are normal The left atrium is mildly dilated. There is mild mitral regurgitation. There is mild tricuspid regurgitation. Right ventricular systolic pressure is normal. There is moderate to severe aortic sclerosis.; Mild valvular aortic stenosis. MD Collin Shannon 05/03/2019 04:04 PM
[2019-05-03] MEDS: BACITRACIN 15 GM TUBE TOPICAL OINTMENT TP SCH (16:15)
[2019-05-03 16:21] LABS: CALCIUM 8.1 mg/dL (8.5-10.1); CREATININE 0.7 mg/dL (0.55-1.3); MAGNESIUM 2.2 mg/dL (1.8-2.4); POTASSIUM 4.1 mmol/L (3.5-5.1)
[2019-05-03] MEDS ORDERED: RIVAROXABAN 20 MG TABLET PO SCH (18:00)
[2019-05-03] MEDS ORDERED: PT OWN MED DRAWER 7, Y5N ONE (20:58)
[2019-05-03] MEDS ORDERED: MONTELUKAST NA 10 MG TABLET PO SCH (22:00)
[2019-05-03] MEDS: dilTIAZem HCL 30 MG TABLET (FP) PO SCH (22:03)
[2019-05-04] MEDS: TOBRAMYCIN 0.3% OPHTH SOLN 5 ML BOTTLE OS SCH ×2 (05:45→13:46)
[2019-05-04] MEDS: dilTIAZem HCL 30 MG TABLET (FP) PO SCH ×2 (05:45→13:46)
[2019-05-04 07:59] LABS: HEMATOCRIT 36.4 % (32.4-45.2); HEMOGLOBIN 12.3 GM/dL (10.7-15.3); MCH 32.5 pg (25.7-33.7); MCHC 33.8 g/dl (32.0-36.0); MEAN CELL VOLUME 96.1 fl (80-96); MEAN PLT VOLUME 7.4 fl (7.5-11.1); PLATELET COUNT 313 K/MM3 (134-434); RBC 3.79 M/mm3 (3.60-5.2); RDW 14.3 % (11.6-15.6); WHITE BLOOD COUNT 8.8 K/mm3 (4.0-10.0)
[2019-05-04 08:34] LABS: ALK PHOS 79 U/L (45-117); ANION GAP 6 MMOL/L (8-16); BILIRUBIN,TOTAL 0.5 mg/dL (0.2-1); BLOOD UREA NITROGEN 24 mg/dL (7-18); CALCIUM 8.5 mg/dL (8.5-10.1); CHLORIDE 106 mmol/L (98-107); CO2 30 mmol/L (21-32); CREATININE 0.6 mg/dL (0.55-1.3); GLUCOSE,RANDOM 90 mg/dL (74-106); POTASSIUM 4.2 mmol/L (3.5-5.1); SGOT/AST 19 U/L (15-37); SGPT/ALT 9 U/L (13-61); SODIUM 142 mmol/L (136-145); TOT PROT 5.6 g/dl (6.4-8.2)
[2019-05-04] MEDS: RANITIDINE HCL 150 MG TABLET (FP) PO SCH (09:43)
[2019-05-04] MEDS: FOLIC ACID 1 MG TABLET (FP) PO SCH (09:43)
[2019-05-04] MEDS ORDERED: FUROSEMIDE 40 MG/4 ML INJECTABLE VIAL IVPUSH SCH (10:00)
[2019-05-04 11:05] VITALS: BP 112/55; PULSE 72; TEMP 98
--- NOTE | 2019-05-04 11:23 | PN ---
Progress Note, Physician History of Present Illness: The patient is a 31 year old male, with a significant PMH of paroxysmal Afib ( on Apixaban), hypertension, hyperlipidemia, diabetes, and seizure disorder, who presents to the emergency department today complaining of bilateral lower extremity edema for 2.5 months. He reports being seen in the ED 2.5 months ago, where he was diagnosed with pneumonia and his Keppra was changed to Oxcarbazepine. He has dealt with bilateral lower extremity edema since, which he believes is secondary to the medication change. Patient notes his clothes don t fit secondary to the edema, and swelling is exacerbated with prolonged standing and walking. Patient additionally reports associated chest pain and dyspnea for the past week. He notes the chest pain is localized to the left side of the chest, sharp, stabbing, and an 8/10 in nature. He reports the chest pain is exacerbated with moving the left upper extremity, deep inspiration, or coughing, and he believes it is muscular in nature. Patient notes he has felt short of breath as well, with intermittent dyspnea on exertion with walking up hills and stairs by his apartment. He denies orthopnea. Patient had stress test done 2.5 months ago, where it demonstrated LVEF at 44%. - Current Medication List Current Medications: Active Medications Bacitracin (Bacitracin -) 1 applic TP DAILY [facility] Last Admin: 05/03/19 16:15 Dose: 1 applic Carbidopa/Levodopa (Sinemet *Cr* 25/100 -) 1 combo PO TID [facility] Last Admin: 05/04/19 05:45 Dose: 1 combo Diltiazem HCl (Cardizem -) 30 mg PO TID [facility] Last Admin: 05/04/19 05:45 Dose: 30 mg Folic Acid (Folic Acid -) 1 mg PO DAILY [facility] Last Admin: 05/04/19 09:43 Dose: 1 mg Furosemide (Lasix Injection -) 20 mg IVPUSH DAILY [facility] Last Admin: 05/04/19 09:43 Dose: 20 mg Montelukast Sodium (Singulair -) 10 mg PO HS [facility] Last Admin: 05/03/19 22:03 Dose: 10 mg Non-Formulary Medication (Pravastatin Sodium [Pravachol]) 40 mg PO DAILY [facility] Ranitidine HCl (Zantac -) 150 mg PO BID [facility] Last Admin: 05/04/19 09:43 Dose: 150 mg Rivaroxaban (Xarelto) 20 mg PO 1800 [facility] Last Admin: 05/03/19 18:32 Dose: 20 mg Simethicone (Mylicon -) 80 mg PO Q8H PRN PRN Reason: GAS Tobramycin Sulfate (Tobrex Ophthalmic Solution -) 2 drop OS TID [facility] Last Admin: 05/04/19 05:45 Dose: 2 drop - Objective Vital Signs: Vital Signs Temperature 98.0 F 05/04/19 10:00 Pulse Rate 72 05/04/19 10:00 Respiratory Rate 22 H 05/04/19 10:00 Blood Pressure 112/55 L 05/04/19 10:00 O2 Sat by Pulse Oximetry (%) 98 05/03/19 22:00 Eyes: Yes: WNL, Conjunctiva Clear, EOM Intact HENT: Yes: WNL, Atraumatic, Normocephalic Neck: Yes: WNL, Supple, Trachea Midline Cardiovascular: Yes: WNL, Regular Rate and Rhythm Respiratory: Yes: WNL, Regular, CTA Bilaterally Gastrointestinal: Yes: WNL, Normal Bowel Sounds Genitourinary: Yes: WNL Musculoskeletal: Yes: WNL Extremities: Yes: WNL Edema: Yes Integumentary: Yes: WNL Neurological: Yes: WNL, Alert, Oriented ...Motor Strength: WNL Psychiatric: Yes: WNL Labs: CBC, BMP 05/04/19 07:21 05/04/19 07:21 INR, PTT INR 1.15 (0.83-1.09) H 05/02/19 12:15 Problem List - Problems (1) History of DVT (deep vein thrombosis) Code(s): Z86.718 - PERSONAL HISTORY OF OTHER VENOUS THROMBOSIS AND EMBOLISM (2) Shortness of breath Code(s): R06.02 - SHORTNESS OF BREATH (3) Abdominal cramping Code(s): R10.9 - UNSPECIFIED ABDOMINAL PAIN (4) Allergy to amoxicillin Code(s): Z88.0 - ALLERGY STATUS TO PENICILLIN (5) Aspiration pneumonia Code(s): J69.0 - PNEUMONITIS DUE TO INHALATION OF FOOD AND VOMIT (6) Asthma Code(s): J45.909 - UNSPECIFIED ASTHMA, UNCOMPLICATED Qualifiers: Asthma severity: mild intermittent Asthma complication type: uncomplicated (7) Atrial fibrillation Code(s): I48.91 - UNSPECIFIED ATRIAL FIBRILLATION (8) Chest pain Code(s): R07.9 - CHEST PAIN, UNSPECIFIED Qualifiers: Chest pain type: unspecified Qualified Code(s): R07.9 - Chest pain, unspecified (9) Closed fracture of trochlea of left humerus Code(s): S42.462A - DISP FX OF MEDIAL CONDYLE OF LEFT HUMERUS, INIT FOR CLOS FX (10) Closed olecranon fracture Code(s): S52.023A - DISP FX OF OLECRAN PRO W/O INTARTIC EXTN UNSP ULNA, INIT (11) Conjunctival hemorrhage of left eye Code(s): H11.32 - CONJUNCTIVAL HEMORRHAGE, LEFT EYE (12) Elbow fracture Code(s): S42.409A - UNSP FRACTURE OF LOWER END OF UNSP HUMERUS, INIT FOR CLOS FX (13) Failure to thrive Code(s): MUA0080 - Qualifiers: Failure to thrive age range: in adult Qualified Code(s): R62.7 - Adult failure to thrive (14) Hyperlipidemia Code(s): E78.5 - HYPERLIPIDEMIA, UNSPECIFIED Qualifiers: Hyperlipidemia type: unspecified Qualified Code(s): E78.5 - Hyperlipidemia , unspecified (15) Hypertension Code(s): I10 - ESSENTIAL (PRIMARY) HYPERTENSION Qualifiers: Hypertension type: essential hypertension Qualified Code(s): I10 - Essential (primary) hypertension (16) Leukocytosis Code(s): D72.829 - ELEVATED WHITE BLOOD CELL COUNT, UNSPECIFIED (17) Paroxysmal atrial fibrillation Code(s): I48.0 - PAROXYSMAL ATRIAL FIBRILLATION (18) Pneumonia Code(s): J18.9 - PNEUMONIA, UNSPECIFIED ORGANISM Qualifiers: Pneumonia type: due to unspecified organism Laterality: left Lung location: lower lobe of lung Qualified Code(s): J18.1 - Lobar pneumonia, unspecified organism (19) Weakness Code(s): R53.1 - WEAKNESS Assessment/Plan - Problems (1) History of DVT (deep vein thrombosis) Code(s): Z86.718 - PERSONAL HISTORY OF OTHER VENOUS THROMBOSIS AND EMBOLISM (2) Shortness of breath Assessment/Plan: Pt says she had a stress test as outpatient several weeks ago. Denies hx chest pain. In the warm months, [place] [facility] ([facility] blocks) at a slow pace ( walking fsater causes mild SOB). Hx "asthma". ECHO: normal LVEF. Lately, pain in knees has made walking more difficutl. Code(s): R06.02 - SHORTNESS OF BREATH (3) Asthma Code(s): J45.909 - UNSPECIFIED ASTHMA, UNCOMPLICATED Qualifiers: Asthma severity: mild intermittent Asthma complication type: uncomplicated (4) Paroxysmal atrial fibrillation Assessment/Plan: Consider diltiazem instead of amlodipine if needed for HR control. On DOAC. ECHO: normal LVEF; Code(s): I48.0 - PAROXYSMAL ATRIAL FIBRILLATION (5) Parkinson disease Code(s): G20 - PARKINSON'S DISEASE (6) Arthritis Code(s): M19.90 - UNSPECIFIED OSTEOARTHRITIS, UNSPECIFIED SITE (7) Hyperlipidemia Code(s): E78.5 - HYPERLIPIDEMIA, UNSPECIFIED Qualifiers: Hyperlipidemia type: unspecified Qualified Code(s): E78.5 - Hyperlipidemia , unspecified (8) Hypertension Assessment/Plan: on amlodipine Orthostatic VS. Code(s): I10 - ESSENTIAL (PRIMARY) HYPERTENSION Qualifiers: Hypertension type: essential hypertension Qualified Code(s): I10 - Essential (primary) hypertension (9) PAD (peripheral artery disease) Assessment/Plan: hyperpigmented bilateral LEs to mid-sterling f/u left LE wound with vascular MD, wound care. Code(s): I73.9 - PERIPHERAL VASCULAR DISEASE, UNSPECIFIED
--- NOTE | 2019-05-04 12:47 | DS ---
Physical Examination Vital Signs: Vital Signs Temperature 98.0 F 05/04/19 10:00 Pulse Rate 72 05/04/19 10:00 Respiratory Rate 22 H 05/04/19 10:00 Blood Pressure 112/55 L 05/04/19 10:00 O2 Sat by Pulse Oximetry (%) 98 05/03/19 22:00 Constitutional: Yes: No Distress, Calm Cardiovascular: Yes: Pulse Irregular Respiratory: Yes: CTA Bilaterally Gastrointestinal: Yes: Normal Bowel Sounds, Soft. No: Tenderness Extremities: Yes: Other (chronic venous changes) Edema: Yes (decreased) Labs: CBC, BMP 05/04/19 07:21 05/04/19 07:21 Discharge Summary Reason For Visit: HISTORY OF DEEP VENOUS THROMBOSIS Current Active Problems Arthritis (Acute) Diastolic dysfunction (Acute) History of DVT (deep vein thrombosis) (Acute) PAD (peripheral artery disease) (Acute) PVD (peripheral vascular disease) (Acute) Parkinson disease (Acute) Shortness of breath (Acute) Hospital Course: ADmitted for SOB on ambulation CTA chest negative for PE evaluated by Cardiology She had a recent stress test Echo -- normal LVEF Pt seen by Wound care on lasix better stable for dc home with [employer]EL[employer] Condition: Stable - Instructions - Home Medications Comprehensive Discharge Medication List: Ambulatory Orders Montelukast Na [Singulair -] 10 mg PO HS 12/13/15 Omeprazole [Prilosec] 20 mg PO DAILY 12/13/15 Pravastatin Sodium [Pravachol] 40 mg PO DAILY 12/13/15 Folic Acid 1 mg PO DAILY 05/31/18 Rivaroxaban [Xarelto -] 20 mg PO DAILY 05/31/18 Ranitidine HCl [Zantac] 150 mg PO BID 12/31/18 Tobramycin 0.3% Ophth Soln [Tobrex Ophthalmic Solution -] 2 drop TID 12/31/18 Carbidopa/Levodopa *Cr* 25/100 [Sinemet *Cr* 25/100 -] 1 combo PO TID #60 tablet.er 01/06/19 Doxycycline Hyclate [Vibramycin -] 100 mg PO BID@1000,1800 #14 capsule 01/06/19 Diltiazem [Cardizem -] 30 mg PO TID #60 tablet 05/04/19 Furosemide [Lasix] 20 mg PO DAILY #30 tablet 06/05/19 Simethicone [Mylicon -] 80 mg PO Q8H PRN #60 tab.chew 05/04/19
[2019-05-04] MEDS: BACITRACIN 15 GM TUBE TOPICAL OINTMENT TP SCH (13:47)
== END 2019-05-04 17:37 | disposition home or self-care (01) | DRG 204 ==
LOC: JER 11:24 → JERBED 15:39 → J4W 21:39 → OBSVTOIN 05-03 11:18
PROVIDERS: ADMIT Internal Medicine; ATTEND Internal Medicine
DX: R06.02 Shortness of breath (principal); E78.5 Hyperlipidemia, unspecified; I51.89 Other ill-defined heart diseases; I10 Essential (primary) hypertension; K21.9 Gastro-esophageal reflux disease without esophagitis; I44.30 Unspecified atrioventricular block; I45.10 Unspecified right bundle-branch block; G40.909 Epilepsy, unspecified, not intractable, without status epilepticus; G20 Parkinson's disease; I87.2 Venous insufficiency (chronic) (peripheral); I73.9 Peripheral vascular disease, unspecified; J45.20 Mild intermittent asthma, uncomplicated; M81.0 Age-related osteoporosis without current pathological fracture; M15.9 Polyosteoarthritis, unspecified; I48.0 Paroxysmal atrial fibrillation; Z88.0 Allergy status to penicillin; Z86.718 Personal history of other venous thrombosis and embolism
CPT/HCPCS: 36415; 71045-TC-FY; 71275-TC; 80048; 80053; 81003; 82550; 82553; 83735; 83880; 84443; 84484; 85025; 85027; 85379; 85610; 85730; 93005; 93010; 93306-TC; 99282-25; G0378

== ENCOUNTER 2019-12-25 21:21 | Emergency (ER) | payer OTHER ==
[2019-12-25 21:42] VITALS: TEMP 98.3; BMI 24.5
[2019-12-25] MEDS ORDERED: LIDOCAINE PATCH REMOVAL MC SCH (22:00)
[2019-12-25] MEDS ORDERED: METHOCARBAMOL 500 MG TABLET PO ONE (22:38)
[2019-12-25] MEDS ORDERED: LIDOCAINE 5% TOPICAL PATCH TP ONE (22:38)
[2019-12-25] MEDS ORDERED: morphine CARPU-JECT 2 MG/1 ML DISP.SYRIN IVPUSH ONE (22:38)
[2019-12-25] MEDS ORDERED: METHOCARBAMOL 500 MG TABLET ONE (23:06)
[2019-12-25] MEDS ORDERED: LIDOCAINE 5% TOPICAL PATCH ONE (23:06)
[2019-12-25 23:10] LABS: BASO % 0.4 % (0-2.0); EOS % 0.1 % (0-4.5); HEMATOCRIT 36.9 % (32.4-45.2); LYMPH % 32.2 % (8-40); MCH 32.5 pg (25.7-33.7); MCHC 32.6 g/dl (32.0-36.0); MEAN CELL VOLUME 99.6 fl (80-96); MEAN PLT VOLUME 7.5 fl (7.5-11.1); MONO % 3.1 % (3.8-10.2); NEUT % 64.2 % (42.8-82.8); PLATELET COUNT 327 K/MM3 (134-434); RDW 14.5 % (11.6-15.6); WHITE BLOOD COUNT 13.4 K/mm3 (4.0-10.0)
[2019-12-25] MEDS ORDERED: morphine SULFATE 4 MG/ML VIAL ONE (23:45)
[2019-12-26 00:05] LABS: ALBUMIN 2.8 g/dl (3.4-5.0); BILIRUBIN,TOTAL 0.3 mg/dL (0.2-1); BLOOD UREA NITROGEN 25.6 mg/dL (7-18); CREATININE 0.5 mg/dL (0.55-1.3); POTASSIUM 3.1 mmol/L (3.5-5.1)
[2019-12-26 00:11] VITALS: BP 136/87; PULSE 89
[2019-12-26] MEDS ORDERED: POTASSIUM CHLORIDE TABS 20 MEQ TABLET.ER (FP) PO ONE ×2 (00:41→01:08)
[2019-12-26] MEDS ORDERED: MAGNESIUM SULF 50% (8.12 MEQ/2 ML-1 GM VIAL) IVPB ONE (00:41)
--- NOTE | 2019-12-26 01:03 | PDOC ---
Documentation entered by Windy Pandey SCRIBE, acting as scribe for Sarah Beth Garcia MD. Sarah Beth Garcia MD: This documentation has been prepared by the scribeDannie Lincy, SCRIBE, under my direction and personally reviewed by me in its entirety. I confirm that the documentation accurately reflects all work, treatment, procedures, and medical decision making performed by me. History of Present Illness - General Stated Complaint: RIGHT ARM PAIN Time Seen by Provider: 12/25/19 21:27 History Source: Patient Exam Limitations: No Limitations - History of Present Illness Initial Comments: 12/25/19 22:53 The patient is an 89-year-old female with a past medical history significant for Parkinsons and DVT ( 5 years ago, on Xarelto) who presents to the emergency department via EMS with right shoulder pain. The patient presents with worsening right shoulder pain, 10/10 in severity. The patient reports the pain has been ongoing for the past one year, reports following up with physical therapy, last PT was . The patient reports the pain is managed with extra-strength Tylenol, however she took 2 Tylenol today, without relief. Denies recent fall or trauma. Denies swelling. Denies numbness or tingling. Past History - Past Medical History Allergies/Adverse Reactions: Allergies Allergy/AdvReac Type Severity Reaction Status Date / Time amoxicillin [Amoxicillin] Allergy Intermediate Rash Verified 12/25/19 21:35 atorvastatin calcium Allergy Verified 12/25/19 21:35 [From Lipitor] hydrochlorothiazide Allergy Verified 12/25/19 21:35 Home Medications: Ambulatory Orders Montelukast Na [Singulair -] 10 mg PO HS 12/13/15 Omeprazole [Prilosec] 20 mg PO DAILY 12/13/15 Pravastatin Sodium [Pravachol] 40 mg PO DAILY 12/13/15 Folic Acid 1 mg PO DAILY 05/31/18 Rivaroxaban [Xarelto -] 20 mg PO DAILY 05/31/18 Ranitidine HCl [Zantac] 150 mg PO BID 12/31/18 Tobramycin 0.3% Ophth Soln [Tobrex Ophthalmic Solution -] 2 drop TID 12/31/18 Carbidopa/Levodopa *Cr* 25/100 [Sinemet *Cr* 25/100 -] 1 combo PO TID #60 tablet.er 01/06/19 Doxycycline Hyclate [Vibramycin -] 100 mg PO BID@1000,1800 #14 capsule 01/06/19 Diltiazem [Cardizem -] 30 mg PO TID #60 tablet 05/04/19 Furosemide [Lasix] 20 mg PO DAILY #30 tablet 05/04/19 Simethicone [Mylicon -] 80 mg PO Q8H PRN #60 tab.chew 05/04/19 Lidocaine 5% Patch [Lidoderm Patch -] 1 patch TP DAILY #30 patch 12/26/19 Anemia: No Asthma: Yes Cancer: No Cardiac Disorders: Yes (a-fib, clots) CVA: No COPD: No CHF: No Dementia: No Diabetes: No GI Disorders: Yes (gerd) Disorders: Yes (bladder - urinary frequency mostly at night) HTN: Yes Hypercholesterolemia: Yes Liver Disease: No Seizures: No Thyroid Disease: No - Surgical History Abdominal Surgery: No Appendectomy: No Cardiac Surgery: No Cholecystectomy: No Lung Surgery: No Neurologic Surgery: Yes (sinus polyps 1190) Orthopedic Surgery: Yes (fractures - partial hip, elbow, broken wrist, torn R rotator cuff) - Immunization History Immunization Up to Date: Yes - Psycho Social/Smoking Cessation Hx Smoking Status: No Smoking History: Never smoked Have you smoked in the past 12 months: No Number of Cigarettes Smoked Daily: 0 Hx Alcohol Use: No Drug/Substance Use Hx: No Substance Use Type: None Hx Substance Use Treatment: No Review of Systems - Review of Systems Able to Perform ROS?: Yes Comments:: 12/25/19 22:54 GENERAL/CONSTITUTIONAL: No fever or chills. No weakness. HEAD, EYES, EARS, NOSE AND THROAT: No change in vision. No ear pain or discharge. No sore throat. CARDIOVASCULAR: No chest pain or shortness of breath. RESPIRATORY: No cough, wheezing, or hemoptysis. GASTROINTESTINAL: No nausea, vomiting, diarrhea or constipation. GENITOURINARY: No dysuria, frequency, or change in urination. MUSCULOSKELETAL: +right shoulder pain No other joint or muscle swelling or pain. No neck or back pain. SKIN: No rash NEUROLOGIC: No headache, vertigo, loss of consciousness, or change in strength/ sensation. ENDOCRINE: No increased thirst. No abnormal weight change. HEMATOLOGIC/LYMPHATIC: No anemia, easy bleeding, or history of blood clots. ALLERGIC/IMMUNOLOGIC: No hives or skin allergy. *Physical Exam - Vital Signs Last Vital Signs Temp Pulse Resp BP Pulse Ox 98.3 F 89 18 136/87 98 12/25/19 21:33 12/26/19 00:10 12/26/19 00:10 12/26/19 00:10 12/26/19 00:10 ED Treatment Course - LABORATORY CBC & Chemistry Diagram: 12/25/19 23:00 12/25/19 22:49 - ADDITIONAL ORDERS Additional order review: Laboratory Results 12/25/19 12/25/19 22:49 22:23 Sodium 144 Potassium 3.1 L Chloride 112 H Carbon Dioxide 24 Anion Gap 8 BUN 25.6 H Creatinine 0.5 L Est GFR (CKD-EPI)AfAm 100.86 Est GFR (CKD-EPI)NonAf 87.02 Random Glucose 98 Calcium 7.0 L Total Bilirubin 0.3 AST 24 ALT 10 L Alkaline Phosphatase 65 Creatine Kinase 93 Cancelled Troponin I 0.03 Cancelled Total Protein 5.0 L Albumin 2.8 L 12/25/19 23:00 RBC 3.70 MCV 99.6 H MCHC 32.6 RDW 14.5 MPV 7.5 Neutrophils % 64.2 D Lymphocytes % 32.2 D Monocytes % 3.1 L Eosinophils % 0.1 D Basophils % 0.4 - RADIOLOGY Radiology Studies Ordered: Category Date Time Status CHEST X-RAY PORTABLE* [RAD] Stat Radiology 12/25/19 22:39 Ordered SHOULDER-RIGHT [RAD] Stat Radiology 12/25/19 22:39 Ordered - Medications Given in the ED: ED Medications Discontinued Medications Generic Name Dose Route Start Last Admin Trade Name Donovan PRN Reason Stop Dose Admin Lidocaine 1 patch 12/25/19 22:38 12/25/19 23:11 Lidoderm Patch - TP 12/25/19 22:39 1 patch ONCE ONE Administration Methocarbamol 1,000 mg 12/25/19 22:38 12/25/19 23:11 Robaxin - PO 12/25/19 22:39 1,000 mg ONCE ONE Administration Morphine Sulfate 2 mg 12/25/19 22:38 12/26/19 00:11 Morphine Injection - IVPUSH 12/25/19 22:39 2 mg ONCE ONE Administration Medical Decision Making - Medical Decision Making 12/26/19 00:42 Pt has impressive shoulder swelling on the right side. States that she did nothing acutely to injure it; no trauma and no redness, fever, pain. Pt has no other complaints. 12/26/19 00:43 We are awaiting XR of her shoulder. 12/26/19 00:45 WBC is 13.4 and her K+ is 3.1 She will likely be discharged with a shoulder sling. Discharge - Discharge Information Problems reviewed: Yes Clinical Impression/Diagnosis: Arthritis of shoulder Condition: Stable Disposition: HOME - Admission No - Additional Discharge Information Prescriptions: Lidocaine 5% Patch [Lidoderm Patch -] 1 patch TP DAILY #30 patch - Follow up/Referral Referrals: Rene Hernandez MD [Primary Care Provider] - Khoi Lugo MD [Staff Physician] - - Patient Discharge Instructions Patient Printed Discharge Instructions: DI for Shoulder Pain - Post Discharge Activity
[2019-12-26] MEDS ORDERED: MAGNESIUM SULF 50% (8.12 MEQ/2 ML-1 GM VIAL) ONE (01:08)
[2019-12-26 02:01] LABS: URIC ACID 2.7 mg/dL (2.6-7.2)
--- NOTE | 2019-12-26 13:54 | EKG ---
Test Reason : Blood Pressure : / mmHG Vent. Rate : 085 BPM Atrial Rate : 085 BPM P-R Int : 288 ms QRS Dur : 088 ms QT Int : 404 ms P-R-T Axes : 063 -20 -09 degrees QTc Int : 480 ms SINUS RHYTHM WITH 1ST DEGREE A-V BLOCK WITH PREMATURE ATRIAL COMPLEXES T wave abnormality INCOMPLETE RBBB PROLONGED QT ABNORMAL ECG WHEN COMPARED WITH ECG OF 02-MAY-2019 11:33, PREMATURE ATRIAL COMPLEXES ARE NOW PRESENT Confirmed by Mark River ([id number]) on 12/26/2019 1:54:31 PM Referred By: Confirmed By:Mark River
== END 2019-12-26 03:25 | disposition home or self-care (01) ==
LOC: JER 21:21
PROC: 3E033GC Introduction of Other Therapeutic Substance into Peripheral Vein, Percutaneous Approach (ICD-10-PCS; principal; 2019-12-25)
PROC: 3E033NZ Introduction of Analgesics, Hypnotics, Sedatives into Peripheral Vein, Percutaneous Approach (ICD-10-PCS; 2019-12-25)
DX: M13.811 Other specified arthritis, right shoulder (principal); E87.6 Hypokalemia; I10 Essential (primary) hypertension; E78.00 Pure hypercholesterolemia, unspecified; J45.909 Unspecified asthma, uncomplicated; I48.91 Unspecified atrial fibrillation; Z79.01 Long term (current) use of anticoagulants; Z86.718 Personal history of other venous thrombosis and embolism; K21.9 Gastro-esophageal reflux disease without esophagitis; R35.0 Frequency of micturition
CPT/HCPCS: 36415; 71045-TC-FY; 73030-TC-RT-FY; 80053; 82550; 84484; 84550; 85025; 93005; 93010; 96374; 96375; 99283-25

== ENCOUNTER 2020-08-22 07:29 | Emergency (ER) | payer OTHER ==
--- OUTSIDE RECORDS SUMMARY | 2020-08-22 07:46 | XMS ---
:1930 [facility] Organization [facility] Support Name Relationship Address Phone RE Unavailable Unavailable Unavailable YAMILET [place] [address] Re-disclosure Warning The records that you are about to access may contain information from federally- assisted alcohol or drug abuse programs. If such information is present, then the following federally mandated warning applies: This information has been disclosed to you from records protected by federal confidentiality rules (42 CFR part 2). The federal rules prohibit you from making any further disclosure of this information unless further disclosure is expressly permitted by the written consent of the person to whom it pertains or as otherwise permitted by 42 CFR part 2. A general authorization for the release of medical or other information is NOT sufficient for this purpose. The Federal rules restrict any use of the information to criminally investigate or prosecute any alcohol or drug abuse patient.The records that you are about to access may contain highly sensitive health information, the redisclosure of which is protected by Article 27-F of the [facility] Public Health law. If you continue you may haveaccess to information: Regarding HIV / AIDS; Provided by facilities licensed or operated by the [facility] Office of Mental Health; or Provided by the [facility] Office for People With Developmental Disabilities. If such information is present, then the following [facility] mandated warning applies: This information has been disclosed to you from confidential records which are protected by state law. State law prohibits you from making any further disclosure of this information without the specific written consent of the person to whom it pertains, or as otherwise permitted by law. Any unauthorized further disclosure in violation of state law may result in a fine or chcf sentence or both. A general authorization for the release of medical or other information is NOT sufficient authorization for further disclosure. Insurance Providers Payer name Policy type Policy ID Covered Covered constitution party's Policy P belinda / Coverage constitution party ID relationship to [employer] Inf ormation type [place] MEDICARE [id number] [facility] [id number] MEDICARE [id number] A
[2020-08-22 07:53] VITALS: BMI 21.5
[2020-08-22] MEDS ORDERED: ACETAMINOPHEN 1000 MG/100 ML VIAL (NON FORMULARY) IVPB ONE (08:31)
[2020-08-22] MEDS ORDERED: ACETAMINOPHEN INJECTION 100 ML IVPB ONE (08:38)
[2020-08-22 08:46] LABS: BASO % 0.4 % (0-2.0); EOS % 0.2 % (0-4.5); HEMATOCRIT 39.7 % (32.4-45.2); HEMOGLOBIN 13.3 GM/dL (10.7-15.3); LYMPH % 38.8 % (8-40); MCH 32.7 pg (25.7-33.7); MCHC 33.6 g/dl (32.0-36.0); MEAN CELL VOLUME 97.5 fl (80-96); MEAN PLT VOLUME 7.9 fl (7.5-11.1); MONO % 5.1 % (3.8-10.2); NEUT % 55.5 % (42.8-82.8); PLATELET COUNT 252 K/MM3 (134-434); RBC 4.07 M/mm3 (3.60-5.2); WHITE BLOOD COUNT 14.4 K/mm3 (4.0-10.0)
[2020-08-22 08:57] LABS: INR 1.21 (0.83-1.09); PROTHROMBIN TIME (PATIENT) 14.3 SEC (9.7-13.0)
[2020-08-22 09:00] LABS: ACTIVATED PTT 33.2 SECONDS (25.2-36.5)
[2020-08-22 09:04] LABS: PH,URINE 7.5 (5.0-8.0); URINE APPEARANCE CLEAR; URINE BILIRUBIN NEGATIVE (NEGATIVE); URINE COLOR YELLOW; URINE GLUCOSE (UA) NEGATIVE (NEGATIVE); URINE KETONE NEGATIVE (NEGATIVE); URINE LEUK ESTERASE NEGATIVE (NEGATIVE); URINE NITRITE NEGATIVE (NEGATIVE); URINE PROTEIN NEGATIVE (NEGATIVE); URINE UROBILINOGEN 0.2 mg/dL (0.2-1.0)
[2020-08-22] MEDS ORDERED: LIDOCAINE 5% TOPICAL PATCH TP ONE (09:12)
--- NOTE | 2020-08-22 09:12 | PDOC ---
Documentation entered by Clarissa Antunez SCRIBE, acting as scribe for Usha Sim MD. Usha Sim MD: This documentation has been prepared by the Tulio doherty Xhesika, SCRIBE, under my direction and personally reviewed by me in its entirety. I confirm that the documentation accurately reflects all work, treatment, procedures, and medical decision making performed by me. History of Present Illness - General Chief Complaint: Pain Stated Complaint: abd pain Time Seen by Provider: 08/22/20 07:42 History Source: Patient Exam Limitations: No Limitations - History of Present Illness Initial Comments: 08/22/20 07:52 HPI The patient is a 89y/o F with a pmh of HTN, HLD, A-fib on Xarelto, right leg DVT, GERD, and asthma who presents to the ED BIBA with abdominal pain radiating to her back since yesterday. Pt describes her pain as constant, pressure like pain, worse with movements. Pt states she might have pulled a muscle yesterday when reaching back to get something on the table, but is unsure. Pt denies any heavy lifting, falls or trauma. Pt states she took Tylenol yesterday with mild improvement of symptoms. Pt notes she has been eating and drinking normally. Pt also reports associated SOB "sometimes." Pt reports urinary frequency which is chronic for her. Denies fever, chills, chest pain, SOB, palpitation, dizziness, weakness, N, V, D, dysuria, urgency or hematuria. Denies focal weakness/paresthesias, leg swelling/pain, rash. No sick contacts or travel. No new changes in medications. No suspicious food intake. Last BM about 2- 3 days ago Allergies: Amoxicillin, atorvastatin calcium, Hydrochlorothiazide Social history: Lives with family. No tobacco, ETOH or drug use. Meds: as documented in EMR Family history: noncontributory PMD: Rene Friend GENERAL/CONSTITUTIONAL: No fever or chills. No weakness. no sweats. HEAD, EYES, EARS, NOSE AND THROAT: No change in vision or hearing. No ear pain or discharge. No sore throat or mouth pain. No difficulty swallowing. No congestion. CARDIOVASCULAR: No chest pain or palpitations, syncope or edema. RESPIRATORY: No cough, wheezing, or hemoptysis. +SOB GASTROINTESTINAL No nausea/vomiting. No diarrhea or constipation. No bloody stools. +abdominal pain GENITOURINARY: No hematuria, dysuria, urgency or other changes. +chronic frequency MUSCULOSKELETAL: No joint or muscle swelling or pain. No decreased range of motion. No neck pain. +back pain SKIN: No rash or changes in skin color or lesions. No wounds. NEUROLOGIC: alert and oriented appropriately No headache, dizziness, loss of consciousness, or change in strength/sensation. No gait instability. HEMATOLOGIC/LYMPHATIC: No anemia, easy bruising/bleeding, or history of blood clots. No swollen lymph nodes ALLERGIC/IMMUNOLOGIC: No allergies PSYCH: no anxiety/depression All other systems reviewed and negative, or as documented in HPI. Review of systems General: Well appearing, awake and alert, NAD. HEENT: NCAT, PERRL, EOMI, clear conjunctiva, anicteric, clear oropharynx, no oral lesions. +dry mucous membranes Neck: neck supple, FROM Resp: CTAB, normal and even respirations, no respiratory distress CVS: +soft holosystolic murmur, RRR, 2+ peripheral pulses throughout, no peripheral edema Abdomen: +diffuse abdominal tenderness. +tympanic. soft, NTND, no rebound or guarding. No CVAT. Back: nontender, normal inspection and ROM; bilateral paraspinal tenderness. no midline tenderness, no stepoffs MSK: + bilateral paralumbar tenderness to palpation. no edema, MARTIN x4, ROM intact. No clubbing or cyanosis. normal bulk and tone. Extremities: no calf tenderness Neuro: alert, oriented appropriately; no focal neurologic deficits Skin: warm and well perfused, cap refill <2 sec, normal color 08/22/20 08:28 08/22/20 12:28 08/22/20 12:44 Past History - Medical History Allergies/Adverse Reactions: Allergies Allergy/AdvReac Type Severity Reaction Status Date / Time amoxicillin [Amoxicillin] Allergy Intermediate Rash Verified 08/22/20 07:41 atorvastatin calcium Allergy Verified 08/22/20 07:41 [From Lipitor] hydrochlorothiazide Allergy Verified 08/22/20 07:41 Home Medications: Ambulatory Orders Montelukast Na [Singulair -] 10 mg PO HS 12/13/15 Omeprazole [Prilosec] 20 mg PO DAILY 12/13/15 Pravastatin Sodium [Pravachol] 40 mg PO DAILY 12/13/15 Folic Acid 1 mg PO DAILY 05/31/18 Rivaroxaban [Xarelto -] 20 mg PO DAILY 05/31/18 Ranitidine HCl [Zantac] 150 mg PO BID 12/31/18 Tobramycin 0.3% Ophth Soln [Tobrex Ophthalmic Solution -] 2 drop TID 12/31/18 Carbidopa/Levodopa *Cr* 25/100 [Sinemet *Cr* 25/100 -] 1 combo PO TID #60 tablet.er 01/06/19 Doxycycline Hyclate [Vibramycin -] 100 mg PO BID@1000,1800 #14 capsule 01/06/19 Diltiazem [Cardizem -] 30 mg PO TID #60 tablet 05/04/19 Furosemide [Lasix] 20 mg PO DAILY #30 tablet 05/04/19 Simethicone [Mylicon -] 80 mg PO Q8H PRN #60 tab.chew 05/04/19 Lidocaine 5% Patch [Lidoderm Patch -] 1 patch TP DAILY #30 patch 12/26/19 Mineral Oil Enema [Fleet Mineral Oil Rectal Enema -] 133 ml RC ONCE PRN #3 enema 08/22/20 Polyethylene Glycol 3350 [Miralax (For Daily Use) -] 17 gm PO DAILY PRN #1 bottle 08/22/20 Anemia: No Asthma: Yes Cancer: No Cardiac Disorders: Yes (a-fib, clots) CVA: No COPD: No CHF: No Dementia: No Diabetes: No GI Disorders: Yes (gerd) Disorders: Yes (bladder - urinary frequency mostly at night) HTN: Yes Hypercholesterolemia: Yes Liver Disease: No Seizures: No Thyroid Disease: No - Surgical History Abdominal Surgery: No Appendectomy: No Cardiac Surgery: No Cholecystectomy: No Lung Surgery: No Neurologic Surgery: Yes (sinus polyps 1190) Orthopedic Surgery: Yes (fractures - partial hip, elbow, broken wrist, torn R rotator cuff) - Reproductive History Is Patient Now?: No - Immunization History Immunization Up to Date: Yes - Psycho-Social/Smoking History Smoking Status: No Smoking History: Never smoked Have you smoked in the past 12 months: No Number of Cigarettes Smoked Daily: 0 Information on smoking cessation initiated: No - Substance Abuse Hx (Audit-C & DAST Scrn) How often the patient has a drink containing alcohol: 4 0r more times/wk Number of drinks the patient has on a typical day: 1 or 2 How often the patient has six or more drinks on one occasion: Never Score: In Men: 4 or > Positive; In Women: 3 or > Positive: 4 Screen Result (Pos requires Nsg. Audit-10AR): Positive In the last yr the pt used illegal drug/Rx for NonMed reason: No Score: Yes response is considered Positive: 0 Screen Result (Positive result requires Nsg. DAST-10): Negative *Physical Exam - Vital Signs Last Vital Signs Temp Pulse Resp BP Pulse Ox 99.2 F 77 18 176/87 H 100 08/22/20 07:42 08/22/20 07:42 08/22/20 07:42 08/22/20 07:42 08/22/20 07:42 Heart Score/ECG Review #1 ECG reviewed & interpreted by me at: 08:05 General ECG Interpretation: Sinus Rhythm, Normal Rate, Normal Intervals 08/22/20 09:12 EKG normal sinus rhythm 85 bpm, some limitations with artifact, no interval abnormalities, narrow QRS, ST and T wave segments and morphology normal. Nonspecific T wave abnormalities ED Treatment Course - LABORATORY CBC & Chemistry Diagram: 08/22/20 08:05 08/22/20 08:05 Medical Decision Making - Medical Decision Making 08/22/20 09:32 Vital Signs Temp Pulse Resp BP Pulse Ox 99.2 F 77 18 176/87 H 100 08/22/20 07:42 08/22/20 07:42 08/22/20 07:42 08/22/20 07:42 08/22/20 07:42 DDx abdominal pain: Renal colic, biliary colic, metabolic/electrolyte derangements. GERD, PUD, esophageal spasm, pancreatitis, hepatitis, constipa tion, colitis, gastroenteritis, cholecystitis, UTI, pyelonephritis, ileus, SBO, medication side effect, hernia, appendicitis, diverticulitis, mesenteric ischemia. msk strain, mesenteric adenitis, mesenteric ischemia, psoas abscess. - no evidence of bleeding +diffuse abdominal pain labs and lytes +leukocytosis, inflammatory vs infectious normal lytes and Cr function normal LFTs/lipase lactic is normal, reassuring. pt does not appear toxic or septic. does not appear ischemic with reassuring clinical picture, imaging pending and pain relief CT a/p to eval for intraabdominal infection/inflammation/pathology 08/22/20 11:43 CT abdomen pelvis with IV contrast was performed, negative for acute pathology. There is a right inguinal hernia. No evidence of obstruction or bowel involvement. There is extensive fecal retention otherwise no acute pathology is noted. There is No evidence of pancreatitis, AAA, cholecystitis, choledocholithiasis, cholangitis, mesenteric ischemia, small bowel obstruction, diverticulitis, colitis, appendicitis, or pelvic etiolology, kashmir gill tear, nurse obgyn issues Back exam was notable for some paravertebral tenderness no midline symptoms, no trauma doubt any fracture or spinal pathology. She is neurovascularly intact neurologically intact and doubt cord pathology. pt given mag citrate and mineral oil enema given her fecal retentio n/constipation likely etiology of her symptoms told pt importance of hydration and high fiber diet avoid triggers 08/22/20 12:44 Pt to be discharged in stable condition. Patient made aware of clinical impression, treatment recommendations and disposition plan, return precautions discussed (including but not limited to new or persistent/worsening symptoms, pain, fevers, or signs of infection, chest pain, respiratory distress, inability to tolerate oral intake, dehydration, syncope, or neurologic changes). Follow up with PMD Dr Hernandez as recommended, follow up information provided, take medicat ions as instructed for duration of time. continue with supportive care, avoid triggers and precipitants. All questions answered to patient's satisfaction and expressed understanding and comfort with this. At the time of discharge, the patient is alert, clinically improved, tolerating po and verbalizes understanding of instructions, satisfied with the care received and felt comfortable with the plan. Patient does not suffer from an acute life- threatening medical condition at this time and is safe for outpatient follow- up. Discharge - Discharge Information Problems reviewed: Yes Clinical Impression/Diagnosis: Abdominal pain Qualifiers: Abdominal location: generalized Qualified Code(s): R10.84 - Generalized abdominal pain Fecal retention Qualifiers: Constipation type: unspecified constipation type Qualified Code(s): K59.00 - Constipation, unspecified Condition: Improved Disposition: HOME - Admission No - Additional Discharge Information Prescriptions: Mineral Oil Enema [Fleet Mineral Oil Rectal Enema -] 133 ml RC ONCE PRN #3 enema PRN Reason: Constipation Polyethylene Glycol 3350 [Miralax (For Daily Use) -] 17 gm PO DAILY PRN #1 bottle PRN Reason: Constipation - Follow up/Referral Referrals: Rene Hernandez MD [Primary Care Provider] - - Patient Discharge Instructions Patient Printed Discharge Instructions: DI for Abdominal Pain-Adult, DI for Constipation Additional Instructions: 1) Please follow-up with your primary care doctor Dr Hernandez in the next 1-2 days. Please call tomorrow for for any urgent issues. 2) You were given a copy of the tests performed today. Please bring the results with you and review them with your primary care doctor. Your laboratory / imaging results were normal, your CT scan showed significant fecal retention and constipation 3) If you have any worsening of symptoms or any other concerns please return to the ED immediately. Return if worsening symptoms including fevers, headache, vomiting, visual or hearing disturbances, abdominal pain, chest pain, shortness of breath, syncope, dehydration, inability to take things by mouth/vomiting, altered mental status, or worsening concerning symptoms. 4) Please continue taking your home medications as directed. your medications on discharge include MiraLAX 1 capful reconstituted drink once a day as needed until bowel movements, this may take several days up to 5 days to work. Also mineral oil enema for fecal retention use as needed with 1 application.. do not drink alcohol with your medications. Stay well hydrated and rest adequately. Make an appointment. If you cannot follow-up with your primary care doctor please return to the ED drink plenty of fluids high fiber diet and avoid triggers for constipation make sure to go regularly. prune juice and high fiber diet can help with bowel movement - Post Discharge Activity
[2020-08-22 09:19] LABS: ALBUMIN 3.4 g/dl (3.4-5.0); ALK PHOS 79 U/L (45-117); ANION GAP 6 MMOL/L (8-16); BILIRUBIN,TOTAL 0.8 mg/dL (0.2-1); BLOOD UREA NITROGEN 25.5 mg/dL (7-18); CALCIUM 8.7 mg/dL (8.5-10.1); CHLORIDE 106 mmol/L (98-107); CO2 30 mmol/L (21-32); CREATININE 0.6 mg/dL (0.55-1.3); GLUCOSE,RANDOM 91 mg/dL (74-106); LIPASE 82 U/L (73-393); POTASSIUM 3.9 mmol/L (3.5-5.1); SGOT/AST 19 U/L (15-37); SGPT/ALT 8 U/L (13-61); SODIUM 141 mmol/L (136-145); TOT PROT 6.3 g/dl (6.4-8.2)
[2020-08-22] MEDS ORDERED: LIDOCAINE 5% TOPICAL PATCH ONE (09:23)
[2020-08-22] MEDS ORDERED: SODIUM CHLORIDE 0.9% 500 ML INFUS.BAG IV ONE (11:08)
[2020-08-22] MEDS ORDERED: MAGNESIUM CITRATE 300 ML BOTTLE PO ONE (12:03)
[2020-08-22] MEDS ORDERED: MINERAL OIL ENEMA 133 ML ENEMA PR ONE (12:04)
[2020-08-22] MEDS ORDERED: MAGNESIUM CITRATE 300 ML BOTTLE ONE (12:25)
[2020-08-22 13:27] VITALS: BP 164/95; PULSE 87; TEMP 98.7
--- NOTE | 2020-08-22 13:55 | EKG ---
Test Reason : Blood Pressure : / mmHG Vent. Rate : 085 BPM Atrial Rate : 085 BPM P-R Int : 298 ms QRS Dur : 070 ms QT Int : 378 ms P-R-T Axes : 017 -18 -21 degrees QTc Int : 449 ms POOR DATA QUALITY, INTERPRETATION MAY BE ADVERSELY AFFECTED SINUS RHYTHM WITH 1ST DEGREE A-V BLOCK WITH OCCASIONAL and consecutive PREMATURE VENTRICULAR COMPLEXES MINIMAL VOLTAGE CRITERIA FOR LVH, MAY BE NORMAL VARIANT ANTERIOR INFARCT , AGE UNDETERMINED ABNORMAL ECG WHEN COMPARED WITH ECG OF 25-DEC-2019 23:22, PREMATURE VENTRICULAR COMPLEXES ARE NOW PRESENT PREMATURE ATRIAL COMPLEXES ARE NO LONGER PRESENT T WAVE INVERSION MORE EVIDENT IN INFERIOR LEADS Confirmed by Eliel Joyner ([id number]) on 08/22/2020 1:55:38 PM Referred By: Confirmed By:Eliel Joyner
== END 2020-08-22 15:28 | disposition home or self-care (01) ==
LOC: JER 07:29
PROC: 3E033NZ Introduction of Analgesics, Hypnotics, Sedatives into Peripheral Vein, Percutaneous Approach (ICD-10-PCS; principal; 2020-08-22)
DX: K59.00 Constipation, unspecified (principal); R10.84 Generalized abdominal pain
CPT/HCPCS: 36415; 74177-TC; 80053; 81003; 82550; 83605; 83690; 84484; 85025; 85610; 85730; 87086; 93005; 93010; 99285-25; J0131; Q9967

== ENCOUNTER 2020-08-26 11:37 | Inpatient (IN) | payer OTHER ==
--- OUTSIDE RECORDS SUMMARY | 2020-08-26 11:51 | XMS ---
:1930 Author Organization [facility] Support Name Relationship Address Phone RE, RETIRED Unavailable Unavailable Unavailable RE Unavailable Unavailable Unavailable YAMILET SCHUM[place] [address] Re-disclosure Warning The records that you are [...] is protected by Article 27-F of the [facility] Public Health law. If you continue you may haveaccess to information: Regarding HIV / AIDS; Provided by facilities licensed or operated by the [facility] Office of Mental Health; or Provided by the [facility] Office for People With Developmental Disabilities. If such information is present, then the following [facility] mandated warning applies: This information has been [...] law may result in a fine or half-way sentence or both. A general authorization for the release of medical or other information is NOT sufficient authorization for further disclosure. Insurance Providers Payer name Policy type Policy ID Covered Covered alliance party's Policy P belinda / Coverage alliance party ID relationship to [employer] Inf ormation type duque MEDICARE [id number] [facility] [id number] MEDICARE [id number]
--- NOTE | 2020-08-26 11:52 | PDOC ---
History of Present Illness - General Chief Complaint: Constipation Stated Complaint: ABDOMINAL PAIN Time Seen by Provider: 08/26/20 11:52 - History of Present Illness Initial Comments: 89 YOF h/o afib on eloquis, asthma, htn, hld, constipation, presents with abdominal pain and constipation since 2 weeks. Patient reports she is unsure of the timing of her last BM. Patient was here on 08/22, received work up including labs and imaging which were remarkable for elevated WBCs and increased stool burden on CT. Confirms pain and pressure in lower abdomen. Also endorses some nausea, persistent chronic chest discomfort and shortness of breath. Denies fever, chills, vomiting, diarrhea. Constitutional: No Weight Change, No Fever, No Chills, No Night Sweats, No Fatigue, No Malaise ENT/Mouth: No Hearing Changes, No Ear Pain, No Nasal Congestion, No Sinus Pain, No Hoarseness, No sore throat, No Rhinorrhea, No Swallowing Difficulty Eyes: No Eye Pain, No Swelling, No Redness, No Foreign Body, No Discharge, No Vision Changes Cardiovascular: + Chest Pain, +SOB, No PND, No Dyspnea on Exertion, No Orthopnea, No Claudication, No Edema, No Palpitations Respiratory: No Cough, No Sputum, No Wheezing, No Smoke Exposure, No Dyspnea Gastrointestinal: + Nausea, No Vomiting, No Diarrhea, + Constipation, No Pain, No Heartburn, No Anorexia, No Dysphagia, No Hematochezia, No Melena, No Flatulence, No Jaundice Genitourinary: No Dysmenorrhea, No DUB, No Dyspareunia, No Dysuria, No Urinary Frequency, No Hematuria, No Urinary Incontinence, No Urgency, No Flank Pain, No Urinary Flow Changes, No Hesitancy Musculoskeletal: No Arthralgias, No Myalgias, No Joint Swelling, No Joint Stiffness, No Back Pain, No Neck Pain, No Injury History Skin: No Skin Lesions, No Pruritis, No Hair Changes, No Breast/Skin Changes, No Nipple Discharge Neuro: No Weakness, No Numbness, No Paresthesias, No Loss of Consciousness, No Syncope, No Dizziness, No Headache, No Coordination Changes, No Recent Falls Psych: No Anxiety/Panic, No Depression, No Insomnia, No Personality Changes, No Delusions, No Rumination, No SI/HI/AH/VH, No Social Issues, No Memory Changes, No Violence/Abuse Hx., No Eating Concerns Heme/Lymph: No Bruising, No Bleeding, No Transfusions History, No Lymphadenopathy Endocrine: No Polyuria, No Polydipsia, No Temperature Intolerance Past History - Medical History Allergies/Adverse Reactions: Allergies Allergy/AdvReac Type Severity Reaction Status Date / Time amoxicillin [Amoxicillin] Allergy Intermediate Rash Verified 08/26/20 11:48 atorvastatin calcium Allergy Verified 08/26/20 11:48 [From Lipitor] hydrochlorothiazide Allergy Verified 08/26/20 11:48 Home Medications: Ambulatory Orders Montelukast Na [Singulair -] 10 mg PO HS 12/13/15 Omeprazole [Prilosec] 20 mg PO DAILY 12/13/15 Pravastatin Sodium [Pravachol] 40 mg PO DAILY 12/13/15 Folic Acid 1 mg PO DAILY 05/31/18 Rivaroxaban [Xarelto -] 20 mg PO DAILY 05/31/18 Ranitidine HCl [Zantac] 150 mg PO BID 12/31/18 Tobramycin 0.3% Ophth Soln [Tobrex Ophthalmic Solution -] 2 drop TID 12/31/18 Carbidopa/Levodopa *Cr* 25/100 [Sinemet *Cr* 25/100 -] 1 combo PO TID #60 tablet.er 01/06/19 Doxycycline Hyclate [Vibramycin -] 100 mg PO BID@1000,1800 #14 capsule 01/06/19 Diltiazem [Cardizem -] 30 mg PO TID #60 tablet 05/04/19 Furosemide [Lasix] 20 mg PO DAILY #30 tablet 05/04/19 Simethicone [Mylicon -] 80 mg PO Q8H PRN #60 tab.chew 05/04/19 Lidocaine 5% Patch [Lidoderm Patch -] 1 patch TP DAILY #30 patch 12/26/19 Mineral Oil Enema [Fleet Mineral Oil Rectal Enema -] 133 ml RC ONCE PRN #3 enema 08/22/20 Polyethylene Glycol 3350 [Miralax (For Daily Use) -] 17 gm PO DAILY PRN #1 bottle 08/22/20 Anemia: No Asthma: Yes Cancer: No Cardiac Disorders: Yes (a-fib, clots) CVA: No COPD: No CHF: No Dementia: No Diabetes: No GI Disorders: Yes (gerd) Disorders: Yes (bladder - urinary frequency mostly at night) HTN: Yes Hypercholesterolemia: Yes Liver Disease: No Seizures: No Thyroid Disease: No - Surgical History Abdominal Surgery: No Appendectomy: No Cardiac Surgery: No Cholecystectomy: No Lung Surgery: No Neurologic Surgery: Yes (sinus polyps 1190) Orthopedic Surgery: Yes (fractures - partial hip, elbow, broken wrist, torn R rotator cuff) - Reproductive History Is Patient Now?: No - Immunization History Immunization Up to Date: Yes - Psycho-Social/Smoking History Smoking Status: No Smoking History: Never smoked Have you smoked in the past 12 months: No Number of Cigarettes Smoked Daily: 0 Information on smoking cessation initiated: No - Substance Abuse Hx (Audit-C & DAST Scrn) How often the patient has a drink containing alcohol: Monthly or less Number of drinks the patient has on a typical day: 1 or 2 How often the patient has six or more drinks on one occasion: Never Score: In Men: 4 or > Positive; In Women: 3 or > Positive: 1 Screen Result (Pos requires Nsg. Audit-10AR): Negative In the last yr the pt used illegal drug/Rx for NonMed reason: No Score: Yes response is considered Positive: 0 Screen Result (Positive result requires Nsg. DAST-10): Negative *Physical Exam - Vital Signs Last Vital Signs Temp Pulse Resp BP Pulse Ox 99.1 F 75 18 124/78 97 08/26/20 11:46 08/26/20 11:46 08/26/20 11:46 08/26/20 11:46 08/26/20 11:46 - Physical Exam General Appearance: Yes: Nourished, Appropriately Dressed HEENT: positive: EOMI, PANCHO, Normal ENT Inspection, Normal Voice, Symmetrical, TMs Normal, Pharynx Normal Neck: positive: Trachea midline, Normal Thyroid Respiratory/Chest: positive: Lungs Clear, Normal Breath Sounds Cardiovascular: positive: Regular Rhythm, Regular Rate, S1, S2 Gastrointestinal/Abdominal: positive: Normal Bowel Sounds, Tender, Flat, Soft Rectal Exam: positive: normal exam Musculoskeletal: positive: Normal Inspection Extremity: positive: Normal Capillary Refill, Normal Inspection, Normal Range of Motion Integumentary: positive: Normal Color, Dry, Warm Neurologic: positive: hospitality housekeeper II-XII NML intact, Fully Oriented, Alert, Normal Mood/Affect, Normal Response, Motor Strength 5/5 ED Treatment Course - LABORATORY CBC & Chemistry Diagram: 08/26/20 12:42 08/26/20 12:42 Medical Decision Making - Medical Decision Making 89 YOF h/o afib, asthma, htn, hld with abdominal pain and constipation - vitals wnl - exam unremarkable - will do labs and disimpact reassess: - digital disimpaction of bowel unsuccessful - no stool appreciated on ALLIE - will do enema reassess: - enema unable to relieve constipation - will admit patient for failure of outpatient management Discharge - Discharge Information Problems reviewed: Yes Clinical Impression/Diagnosis: Abdominal pain, Obstipation, Constipation - Follow up/Referral - Patient Discharge Instructions - Post Discharge Activity
[2020-08-26 12:49] LABS: BASO % 0.4 % (0-2.0); EOS % 0.5 % (0-4.5); HEMATOCRIT 44.1 % (32.4-45.2); HEMOGLOBIN 14.6 GM/dL (10.7-15.3); LYMPH % 41.3 % (8-40); MCH 31.9 pg (25.7-33.7); MCHC 33.1 g/dl (32.0-36.0); MEAN CELL VOLUME 96.5 fl (80-96); MEAN PLT VOLUME 7.6 fl (7.5-11.1); MONO % 4.6 % (3.8-10.2); NEUT % 53.2 % (42.8-82.8); PLATELET COUNT 275 K/MM3 (134-434); RBC 4.57 M/mm3 (3.60-5.2); RDW 13.9 % (11.6-15.6); WHITE BLOOD COUNT 15.6 K/mm3 (4.0-10.0)
[2020-08-26] MEDS ORDERED: MINERAL OIL ENEMA 133 ML ENEMA PR ONE (12:52)
[2020-08-26 13:19] LABS: BILIRUBIN,TOTAL 0.5 mg/dL (0.2-1); BLOOD UREA NITROGEN 26.8 mg/dL (7-18); CALCIUM 8.5 mg/dL (8.5-10.1); CREATININE 0.7 mg/dL (0.55-1.3); TOT PROT 6.4 g/dl (6.4-8.2)
--- NOTE | 2020-08-26 13:30 | PDOC ---
Documentation entered by Windy Pandey SCRIBE, acting as scribe for Vasiliy Walker MD. Vasiliy Walker MD: This documentation has been prepared by the reyesibcarolina, Windy Pandey SCRIBE, under my direction and personally reviewed by me in its entirety. I confirm that the documentation accurately reflects all work, treatment, procedures, and medical decision making performed by me. Attending Attestation - Resident Resident Name: Stanford Emanuel - ED Attending Attestation I have performed the following: I have examined & evaluated the patient, The case was reviewed & discussed with the resident, I agree w/resident's findings & plan, Exceptions are as noted - HPI HPI: 08/26/20 12:31 The patient is an 89-year-old female with a past medical history significant for HTN, HLD, Afib (on Xarelto), prior DVT, and asthma who presents to the emergency department with 9-10 days of constipation. Pt was seen here 3 days ago for same complaint. Pt was given enema but reports persistent constipation. The patient reports an associated symptom of lower abdominal pain. Denies fever, chills, nausea, or vomiting. - Physicial Exam PE: 08/26/20 13:34 See resident exam - Medical Decision Making 08/26/20 13:34 89 F with obstipation, failed outpt tx. Attempted manual disimpaction and fleets enema in ED without success. - Labs - Admit Discharge - Discharge Information Problems reviewed: Yes Clinical Impression/Diagnosis: Abdominal pain, Obstipation, Constipation - Follow up/Referral - Patient Discharge Instructions - Post Discharge Activity
--- OUTSIDE RECORDS SUMMARY | 2020-08-26 14:28 | XMS ---
:1930 Author Organization [facility] Support Name Relationship Address Phone RE, RETIRED Unavailable Unavailable Unavailable RE Unavailable Unavailable Unavailable YAMILET SCHUMACHER [place] [address] Re-disclosure Warning The records that you are [...] by Article 27-F of the [facility] Public Health law. If you continue you may haveaccess to information: Regarding HIV / AIDS; Provided by facilities licensed or operated by the [facility] Office of Mental Health; or Provided by the [facility] Office for People With Developmental Disabilities. If such information is present, then the following [facility] mandated warning applies: This information [...] law may result in a fine or assisted sentence or both. A general authorization for the release of medical or other information is NOT sufficient authorization for further disclosure. Insurance Providers Payer name Policy type Policy ID Covered Covered constitution party's Policy P belinda / Coverage constitution party ID relationship to [employer] Inf ormation type duque MEDICARE [id number] [facility] [id number] MEDICARE [id number]
--- NOTE | 2020-08-26 16:13 | HP ---
Admitting History and Physical - Primary Care Physician PCP: Kasia Mosley - Admission Chief Complaint: constipation, abd pain History of Present Illness: - HPI HPI: 08/26/20 12:31 The patient is an 89-year-old female with a past medical history significant for HTN, HLD, Afib (on Xarelto), prior DVT, and asthma who presents to the emergency department with 9-10 days of constipation. Pt was seen here 3 days ago for same complaint. Pt was given enema but reports persistent constipation. The patient reports an associated symptom of lower abdominal pain. Denies fever, chills, nausea, or vomiting. 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 Cardiovascular: Yes: HTN, Hyperlipdemia ...: No - Past Surgical History Past Surgical History: Yes: Hysterectomy - Smoking History Smoking history: Never smoked Have you smoked in the past 12 months: No Aproximately how many cigarettes per day: 0 - Alcohol/Substance Use Hx Alcohol Use: No History of Substance Use: reports: None - Social History ADL: Independent History of Recent Travel: No Home Medications - Allergies Allergies/Adverse Reactions: Allergies Allergy/AdvReac Type Severity Reaction Status Date / Time amoxicillin [Amoxicillin] Allergy Intermediate Rash Verified 08/26/20 11:48 atorvastatin calcium Allergy Verified 08/26/20 11:48 [From Lipitor] hydrochlorothiazide Allergy Verified 08/26/20 11:48 - Home Medications Home Medications: Ambulatory Orders Montelukast Na [Singulair -] 10 mg PO HS 12/13/15 Omeprazole [Prilosec] 20 mg PO DAILY 12/13/15 Pravastatin Sodium [Pravachol] 40 mg PO DAILY 12/13/15 Folic Acid 1 mg PO DAILY 05/31/18 Rivaroxaban [Xarelto -] 20 mg PO DAILY 05/31/18 Ranitidine HCl [Zantac] 150 mg PO BID 12/31/18 Tobramycin 0.3% Ophth Soln [Tobrex Ophthalmic Solution -] 2 drop TID 12/31/18 Carbidopa/Levodopa *Cr* 25/100 [Sinemet *Cr* 25/100 -] 1 combo PO TID #60 tablet.er 01/06/19 Doxycycline Hyclate [Vibramycin -] 100 mg PO BID@1000,1800 #14 capsule 01/06/19 Diltiazem [Cardizem -] 30 mg PO TID #60 tablet 05/04/19 Furosemide [Lasix] 20 mg PO DAILY #30 tablet 05/04/19 Simethicone [Mylicon -] 80 mg PO Q8H PRN #60 tab.chew 05/04/19 Lidocaine 5% Patch [Lidoderm Patch -] 1 patch TP DAILY #30 patch 12/26/19 Mineral Oil Enema [Fleet Mineral Oil Rectal Enema -] 133 ml RC ONCE PRN #3 enema 08/22/20 Polyethylene Glycol 3350 [Miralax (For Daily Use) -] 17 gm PO DAILY PRN #1 bottle 08/22/20 Review of Systems - Review of Systems Constitutional: denies: Chills, Fever Gastrointestinal: reports: Abdominal Pain, Nausea Physical Examination Vital Signs: Vital Signs Temperature 98.5 F 08/26/20 15:41 Pulse Rate 86 08/26/20 15:41 Respiratory Rate 19 08/26/20 15:41 Blood Pressure 126/78 08/26/20 15:41 O2 Sat by Pulse Oximetry (%) 96 08/26/20 15:41 Constitutional: Yes: No Distress, Anxious Cardiovascular: Yes: Regular Rate and Rhythm Respiratory: Yes: CTA Bilaterally Gastrointestinal: Yes: Normal Bowel Sounds, Soft, Tenderness Edema: No Neurological: Yes: Alert Labs: CBC, BMP 08/26/20 12:42 08/26/20 12:42 Imaging - Results Chest X-ray: Image Reviewed (no infiltrates) EKG: Image Reviewed (sinus) Problem List - Problems (1) Abdominal pain Code(s): R10.9 - UNSPECIFIED ABDOMINAL PAIN (2) Fecal retention Code(s): K59.00 - CONSTIPATION, UNSPECIFIED (3) Abdominal cramping Code(s): R10.9 - UNSPECIFIED ABDOMINAL PAIN (4) Hyperlipidemia Code(s): E78.5 - HYPERLIPIDEMIA, UNSPECIFIED Qualifiers: Hyperlipidemia type: unspecified Qualified Code(s): E78.5 - Hyperlipidemia, unspecified (5) Hypertension Code(s): I10 - ESSENTIAL (PRIMARY) HYPERTENSION Qualifiers: Hypertension type: essential hypertension Qualified Code(s): I10 - Essential (primary) hypertension (6) Parkinson disease Code(s): G20 - PARKINSON'S DISEASE Assessment/Plan PLAN Mineral water enema to be given again Miralax BID Add Citroma Q48H check labs, thyroid function clear liquids for now DVT prophylaxis--Xarelto
[2020-08-26] MEDS ORDERED: SIMETHICONE 80 MG TAB.CHEW (FP) PO PRN (16:14)
[2020-08-26] MEDS: POLYETHYLENE GLYCOL 3350 119 GM BTL PO SCH (21:22)
[2020-08-26] MEDS: dilTIAZem HCL 30 MG TABLET PO SCH (21:22)
[2020-08-26] MEDS: ACETAMINOPHEN 325 MG TABLET (FP) PO PRN (22:13)
[2020-08-26] MEDS: MAGNESIUM CITRATE 300 ML BOTTLE PO PRN (22:14)
[2020-08-27] MEDS: dilTIAZem HCL 30 MG TABLET PO SCH ×3 (05:54→21:41)
[2020-08-27 09:20] LABS: HEMATOCRIT 39.5 % (32.4-45.2); HEMOGLOBIN 13.4 GM/dL (10.7-15.3); MCH 32.9 pg (25.7-33.7); MCHC 33.9 g/dl (32.0-36.0); MEAN PLT VOLUME 8.1 fl (7.5-11.1); PLATELET COUNT 283 K/MM3 (134-434); RBC 4.07 M/mm3 (3.60-5.2); RDW 13.8 % (11.6-15.6)
[2020-08-27 09:28] LABS: ALBUMIN 2.7 g/dl (3.4-5.0); BILIRUBIN,TOTAL 0.6 mg/dL (0.2-1); BLOOD UREA NITROGEN 24.5 mg/dL (7-18); CALCIUM 8.1 mg/dL (8.5-10.1); CREATININE 0.5 mg/dL (0.55-1.3); POTASSIUM 3.8 mmol/L (3.5-5.1); TOT PROT 5.9 g/dl (6.4-8.2)
[2020-08-27] MEDS: LIDOCAINE 5% TOPICAL PATCH TP SCH (10:06)
[2020-08-27] MEDS: POLYETHYLENE GLYCOL 3350 119 GM BTL PO SCH ×2 (10:07→21:40)
[2020-08-27] MEDS: ACETAMINOPHEN 325 MG TABLET (FP) PO PRN ×2 (11:58→21:41)
[2020-08-27] MEDS ORDERED: BISACODYL 5 MG TABLET.DR (FP) PO ONE (14:02)
--- NOTE | 2020-08-27 14:07 | EKG ---
Test Reason : Blood Pressure : / mmHG Vent. Rate : 088 BPM Atrial Rate : 088 BPM P-R Int : 298 ms QRS Dur : 092 ms QT Int : 374 ms P-R-T Axes : 079 -08 -01 degrees QTc Int : 452 ms SINUS RHYTHM WITH 1ST DEGREE A-V BLOCK LOW VOLTAGE QRS BORDERLINE ECG WHEN COMPARED WITH ECG OF 22-AUG-2020 08:06, T WAVE VARIATION Confirmed by JOSELITO BROWN MD ([id number]) on 08/27/2020 2:06:51 PM Referred By: Confirmed By:JOSELITO BROWN MD
[2020-08-27] MEDS ORDERED: PT OWN MED DRAWER 7, Y5N ONE (14:50)
[2020-08-27] MEDS: SODIUM PHOSPHATE/NA BIPHOS 133 ML ENEMA PR SCH (14:54)
--- NOTE | 2020-08-27 16:02 | PN ---
Progress Note, Physician History of Present Illness: patient seen and examined. Chart is reviewed. Still feel significantly constipated/ significant discomfort because of same Do not have bowel movement Otherwise okay denies chest pain or shortness of breath - Current Medication List Current Medications: Active Medications Acetaminophen (Tylenol -) 650 mg PO Q6H PRN PRN Reason: PAIN LEVEL 4 - 6 Last Admin: 08/27/20 11:58 Dose: 650 mg Documented by: Carbidopa/Levodopa (Sinemet *Cr* 25/100 -) 1 combo PO TID [facility] Last Admin: 08/27/20 14:54 Dose: 1 combo Documented by: Diltiazem HCl (Cardizem -) 30 mg PO TID [facility] Last Admin: 08/27/20 14:53 Dose: 30 mg Documented by: Lidocaine (Lidoderm Patch -) 1 patch TP DAILY [facility] Last Admin: 08/27/20 10:06 Dose: 1 patch Documented by: Magnesium Citrate (Citroma -) 300 ml PO Q48H PRN PRN Reason: CONSTIPATION Last Admin: 08/26/20 22:14 Dose: 300 ml Documented by: Miscellaneous (Lidoderm Patch Removal) 1 each MC DAILY@2200 [facility] Non-Formulary Medication (Pravastatin Sodium [Pravachol]) 40 mg PO DAILY [facility] Polyethylene Glycol (Miralax (For Daily Use) -) 17 gm PO BID [facility] Last Admin: 08/27/20 10:07 Dose: 17 gm Documented by: Rivaroxaban (Xarelto) 20 mg PO DAILY@1800 [facility] Sodium Phosphate (Fleet Adult Rectal Enema -) 133 ml IN DAILY [facility] Last Admin: 08/27/20 14:54 Dose: 133 ml Documented by: - Objective Vital Signs: Vital Signs Temperature 98.1 F 08/27/20 14:00 Pulse Rate 86 08/27/20 14:00 Respiratory Rate 20 08/27/20 14:00 Blood Pressure 157/75 08/27/20 14:00 O2 Sat by Pulse Oximetry (%) 96 08/27/20 14:00 Constitutional: Yes: No Distress Neck: Yes: Supple Cardiovascular: Yes: Regular Rate and Rhythm Respiratory: Yes: CTA Bilaterally Gastrointestinal: Yes: Soft Edema: No Neurological: Yes: Alert Labs: CBC, BMP 08/27/20 08:20 08/27/20 08:20 Problem List - Problems (1) Fecal retention Code(s): K59.00 - CONSTIPATION, UNSPECIFIED (2) Paroxysmal atrial fibrillation Code(s): I48.0 - PAROXYSMAL ATRIAL FIBRILLATION Assessment/Plan discussed with patient continue stool softeners Fleet enema--today and daily Will start on Dulcolax tablet Medication reviewed continue xarelto Hopefully she will have a bowel movement today In stable----consider discharge tomorrow--- if constipation--- resolved
[2020-08-27] MEDS: RIVAROXABAN 20 MG TABLET PO SCH (18:08)
[2020-08-27] MEDS: LIDOCAINE PATCH REMOVAL MC SCH (21:40)
[2020-08-28] MEDS: dilTIAZem HCL 30 MG TABLET PO SCH ×3 (06:04→21:19)
[2020-08-28] MEDS: LIDOCAINE 5% TOPICAL PATCH TP SCH (10:02)
[2020-08-28] MEDS: POLYETHYLENE GLYCOL 3350 119 GM BTL PO SCH ×2 (10:02→21:18)
[2020-08-28] MEDS: SODIUM PHOSPHATE/NA BIPHOS 133 ML ENEMA PR SCH (10:03)
--- NOTE | 2020-08-28 11:41 | PN ---
Progress Note (short form) - Note Progress Note: had a large bm yesterday feeling nauseous and has lower abdominal pain Vital Signs - 24 hr 08/27/20 08/27/20 08/27/20 14:00 16:30 21:00 Temperature 98.1 F 98.4 F Pulse Rate 86 72 Respiratory 20 20 18 Rate Blood Pressure 157/75 103/50 L O2 Sat by Pulse 96 95 Oximetry (%) 08/27/20 08/28/20 23:00 06:30 Temperature 98.4 F 98.5 F Pulse Rate 75 73 Respiratory 18 18 Rate Blood Pressure 150/82 129/73 O2 Sat by Pulse 95 93 L Oximetry (%) Current Medications Generic Name Dose Route Start Last Admin Trade Name Freq PRN Reason Stop Dose Admin Acetaminophen 650 mg 08/26/20 21:56 08/27/20 21:41 Tylenol - PO 650 mg Q6H PRN Administration PAIN LEVEL 4 - 6 Carbidopa/Levodopa 1 combo 08/26/20 22:00 08/28/20 06:04 Sinemet *Cr* 25/100 - PO 1 combo TID [facility] Administration Diltiazem HCl 30 mg 08/26/20 22:00 08/28/20 06:04 Cardizem - PO 30 mg TID [facility] Administration Lidocaine 1 patch 08/27/20 10:00 08/28/20 10:02 Lidoderm Patch - TP 1 patch DAILY [facility] Administration Magnesium Citrate 300 ml 08/26/20 16:15 08/26/20 22:14 Citroma - PO 300 ml Q48H PRN Administration CONSTIPATION Metoclopramide HCl 5 mg 08/28/20 16:30 Reglan - PO TIDAC [facility] Miscellaneous 1 each 08/27/20 22:00 08/27/20 21:40 Lidoderm Patch Removal MC 1 each DAILY@2200 [facility] Administration Non-Formulary Medication 40 mg 08/27/20 10:00 Pravastatin Sodium [Pravachol] PO DAILY [facility] Polyethylene Glycol 17 gm 08/26/20 22:00 08/28/20 10:02 Miralax (For Daily Use) - PO 17 gm BID [facility] Administration Rivaroxaban 20 mg 08/27/20 18:00 08/27/20 18:08 Xarelto PO 20 mg DAILY@1800 [facility] Administration Sodium Phosphate 133 ml 08/27/20 14:15 08/28/20 10:03 Fleet Adult Rectal Enema - RI 133 ml DAILY [facility] Administration Laboratory Results - last 24 hr 08/26/20 14:00 COVID-19 ([facility]) Not detected S1 S2 RRR Lungs clear Abd- soft, ND, BS+ tender generalized No edema PLAN will check FUA today advance diet Reglan tid with meals continue with meds Problem List - Problems (1) Abdominal pain Code(s): R10.9 - UNSPECIFIED ABDOMINAL PAIN (2) Fecal retention Code(s): K59.00 - CONSTIPATION, UNSPECIFIED (3) Abdominal cramping Code(s): R10.9 - UNSPECIFIED ABDOMINAL PAIN (4) Hyperlipidemia Code(s): E78.5 - HYPERLIPIDEMIA, UNSPECIFIED Qualifiers: Hyperlipidemia type: unspecified Qualified Code(s): E78.5 - Hyperlipidemia, unspecified (5) Hypertension Code(s): I10 - ESSENTIAL (PRIMARY) HYPERTENSION Qualifiers: Hypertension type: essential hypertension Qualified Code(s): I10 - Essential (primary) hypertension
[2020-08-28] MEDS: PATIENT'S OWN MEDICATION (NON-FORMULARY) (Pravastatin Sodium [Pravachol] 40 MG) PO SCH ×2 (12:31→12:32)
[2020-08-28] MEDS ORDERED: SIMETHICONE 80 MG TAB.CHEW (FP) PO PRN (14:00)
[2020-08-28] MEDS ORDERED: PT OWN MED DRAWER 7, Y5N ONE (14:23)
[2020-08-28] MEDS: CALCIUM CARBONATE 650 MG TABLET PO SCH ×2 (14:32→21:19)
[2020-08-28] MEDS: RIVAROXABAN 20 MG TABLET PO SCH (17:34)
[2020-08-28] MEDS: METOCLOPRAMIDE HCL 10 MG TABLET (FP) PO SCH (17:34)
[2020-08-28] MEDS: LIDOCAINE PATCH REMOVAL MC SCH (21:19)
[2020-08-28] MEDS: MAGNESIUM CITRATE 300 ML BOTTLE PO PRN (21:19)
[2020-08-29] MEDS: ACETAMINOPHEN 325 MG TABLET (FP) PO PRN ×2 (01:08→12:58)
[2020-08-29] MEDS: dilTIAZem HCL 30 MG TABLET PO SCH ×2 (06:01→13:02)
[2020-08-29] MEDS: METOCLOPRAMIDE HCL 10 MG TABLET (FP) PO SCH ×3 (06:01→16:11)
[2020-08-29] MEDS ORDERED: PT OWN MED DRAWER 7, Y5N ONE (10:09)
[2020-08-29] MEDS: LIDOCAINE 5% TOPICAL PATCH TP SCH (10:54)
[2020-08-29] MEDS: CALCIUM CARBONATE 650 MG TABLET PO SCH (10:54)
[2020-08-29] MEDS: POLYETHYLENE GLYCOL 3350 119 GM BTL PO SCH (10:55)
[2020-08-29] MEDS: SODIUM PHOSPHATE/NA BIPHOS 133 ML ENEMA PR SCH (10:55)
--- NOTE | 2020-08-29 12:19 | DS ---
Physical Examination Vital Signs: Vital Signs Temperature 98.4 F 08/29/20 11:00 Pulse Rate 79 08/29/20 11:00 Respiratory Rate 20 08/29/20 11:00 Blood Pressure 147/86 08/29/20 11:00 O2 Sat by Pulse Oximetry (%) 93 L 08/29/20 11:00 Constitutional: Yes: No Distress, Calm Cardiovascular: Yes: Regular Rate and Rhythm Respiratory: Yes: CTA Bilaterally Gastrointestinal: Yes: Normal Bowel Sounds, Soft. No: Tenderness Edema: No Labs: CBC, BMP 08/27/20 08:20 08/27/20 08:20 Discharge Summary Problems reviewed: Yes Reason For Visit: FAILURE OF OUTPATIENT TREATMENT Current Active Problems Abdominal pain (Acute) Fecal retention (Acute) Obstipation (Acute) Hospital Course: HPI HPI: 08/26/20 12:31 The patient is an 89-year-old female with a past medical history significant for HTN, HLD, Afib (on Xarelto), prior DVT, and asthma who presents to the emergency department with 9-10 days of constipation. Pt was seen here 3 days ago for same complaint. Pt was given enema but reports persistent constipation. The patient reports an associated symptom of lower abdominal pain. Denies fever, chills, nausea, or vomiting. Pt failed outpatient therapy and is admitted History Source: Patient, Friend HOSPITAL COURSE received enema, stool softeners She had a good BM her xray abdomen shows improvement of fecal retention Condition: Improved - Instructions Referrals: Rosmery Barroso MD [Primary Care Provider] - - Home Medications Comprehensive Discharge Medication List: Ambulatory Orders Montelukast Na [Singulair -] 10 mg PO HS 12/13/15 Omeprazole [Prilosec] 20 mg PO DAILY 12/13/15 Pravastatin Sodium [Pravachol] 40 mg PO DAILY 12/13/15 Folic Acid 1 mg PO DAILY 05/31/18 Rivaroxaban [Xarelto -] 20 mg PO DAILY 05/31/18 Ranitidine HCl [Zantac] 150 mg PO BID 12/31/18 Tobramycin 0.3% Ophth Soln [Tobrex Ophthalmic Solution -] 2 drop TID 12/31/18 Carbidopa/Levodopa *Cr* 25/100 [Sinemet *Cr* 25/100 -] 1 combo PO TID #60 tablet.er 01/06/19 Doxycycline Hyclate [Vibramycin -] 100 mg PO BID@1000,1800 #14 capsule 01/06/19 Diltiazem [Cardizem -] 30 mg PO TID #60 tablet 05/04/19 Furosemide [Lasix] 20 mg PO DAILY #30 tablet 05/04/19 Simethicone [Mylicon -] 80 mg PO Q8H PRN #60 tab.chew 05/04/19 Lidocaine 5% Patch [Lidoderm Patch -] 1 patch TP DAILY #30 patch 12/26/19 Mineral Oil Enema [Fleet Mineral Oil Rectal Enema -] 133 ml RC ONCE PRN #3 enema 08/22/20 Polyethylene Glycol 3350 [Miralax (For Daily Use) -] 17 gm PO DAILY PRN #1 bottle 08/22/20
[2020-08-29 15:04] VITALS: BP 139/78; PULSE 93; TEMP 98.1
[2020-08-29 15:36] VITALS: BMI 20.5
== END 2020-08-29 17:52 | disposition home or self-care (01) | DRG 392 ==
LOC: JER 11:37 → JERBED 13:40 → J8W 17:01
PROVIDERS: ADMIT Internal Medicine; ATTEND Internal Medicine
DX: K59.00 Constipation, unspecified (principal); I48.0 Paroxysmal atrial fibrillation; I10 Essential (primary) hypertension; E78.5 Hyperlipidemia, unspecified; J45.909 Unspecified asthma, uncomplicated; Z86.718 Personal history of other venous thrombosis and embolism; G20 Parkinson's disease; Z79.01 Long term (current) use of anticoagulants
CPT/HCPCS: 36415; 71046-TC-FY; 74019-TC-FY; 80053; 84439; 84443; 85025; 85027; 93005; 93010; 99285-25; U0003

== ENCOUNTER 2020-12-13 14:39 | Inpatient (IN) | payer OTHER ==
[2020-12-13 15:00] VITALS: BMI 24.5
[2020-12-13 16:00] LABS: BASO % 0.5 % (0-2.0); EOS % 0.2 % (0-4.5); HEMATOCRIT 40.5 % (32.4-45.2); HEMOGLOBIN 13.5 GM/dL (10.7-15.3); LYMPH % 48.9 % (8-40); MCH 32.7 pg (25.7-33.7); MCHC 33.4 g/dl (32.0-36.0); MEAN PLT VOLUME 7.2 fl (7.5-11.1); MONO % 4.4 % (3.8-10.2); PLATELET COUNT 296 K/MM3 (134-434); RBC 4.14 M/mm3 (3.60-5.2); RDW 15.9 % (11.6-15.6); WHITE BLOOD COUNT 14.4 K/mm3 (4.0-10.0)
[2020-12-13 16:20] LABS: INR 1.04 (0.83-1.09); PROTHROMBIN TIME (PATIENT) 12.8 SEC (9.7-13.0)
[2020-12-13 16:23] LABS: ACTIVATED PTT 28.9 SECONDS (25.2-36.5)
[2020-12-13 16:24] LABS: CHLORIDE 100 mmol/L (98-107); POTASSIUM 4.1 mmol/L (3.5-5.1); SODIUM 136 mmol/L (136-145)
[2020-12-13 16:27] LABS: ALBUMIN 3.3 g/dl (3.4-5.0); ANION GAP 6 MMOL/L (8-16); BLOOD UREA NITROGEN 16.5 mg/dL (7-18); CALCIUM 8.7 mg/dL (8.5-10.1); CO2 30 mmol/L (21-32); GLUCOSE,RANDOM 86 mg/dL (74-106); MAGNESIUM 2.1 mg/dL (1.8-2.4)
[2020-12-13 16:30] LABS: CREATININE 0.5 mg/dL (0.55-1.3); SGOT/AST 36 U/L (15-37); SGPT/ALT 17 U/L (13-61)
[2020-12-13 16:32] LABS: ALK PHOS 102 U/L (45-117); BILIRUBIN,TOTAL 0.6 mg/dL (0.2-1); PHOSPHOROUS 3.8 mg/dL (2.5-4.9); TOT PROT 5.9 g/dl (6.4-8.2)
[2020-12-13 19:36] LABS: ANISOCYTOSIS 1+; PLATELET ESTIMATE NORMAL
[2020-12-13 22:31] LABS: URINE APPEARANCE Clear; URINE BILIRUBIN Negative (NEGATIVE); URINE COLOR Yellow; URINE GLUCOSE (UA) Negative (NEGATIVE); URINE KETONE Negative (NEGATIVE); URINE LEUK ESTERASE Negative (NEGATIVE); URINE NITRITE Negative (NEGATIVE); URINE PROTEIN Negative (NEGATIVE); URINE UROBILINOGEN 0.2 mg/dL (0.2-1.0)
[2020-12-14] MEDS ORDERED: ONDANSETRON 4 MG/2 ML VIAL IVPUSH PRN (00:07)
[2020-12-14] MEDS: PANTOPRAZOLE 40 MG TABLET PO SCH (06:27)
[2020-12-14] MEDS: dilTIAZem HCL 30 MG TABLET PO SCH ×3 (06:27→21:49)
[2020-12-14] MEDS: CALCIUM CARBONATE 650 MG TABLET PO SCH ×2 (09:51→22:47)
[2020-12-14] MEDS: FOLIC ACID 1 MG TABLET (FP) PO SCH (09:51)
[2020-12-14] MEDS: SENNOSIDES 8.6MG TABLET (FP) PO SCH ×2 (09:52→21:47)
[2020-12-14 09:53] LABS: BLOOD UREA NITROGEN 11.7 mg/dL (7-18)
[2020-12-14 09:54] LABS: MAGNESIUM 2.2 mg/dL (1.8-2.4)
[2020-12-14 09:55] LABS: CALCIUM 8.4 mg/dL (8.5-10.1)
[2020-12-14 09:57] LABS: CREATININE 0.6 mg/dL (0.55-1.3); PHOSPHOROUS 3.9 mg/dL (2.5-4.9)
[2020-12-14] MEDS: POLYETHYLENE GLYCOL 3350 119 GM BTL PO SCH (09:57)
[2020-12-14 09:59] LABS: BILIRUBIN,TOTAL 1.2 mg/dL (0.2-1); TOT PROT 6.2 g/dl (6.4-8.2)
[2020-12-14] MEDS ORDERED: RANITIDINE HCL 150 MG/10 ML UNIT-DOSE PO SCH (10:00)
[2020-12-14] MEDS ORDERED: ENOXAPARIN NA (PORCINE) 30 MG/0.3 ML DISP.SYRIN SQ SCH (10:00)
[2020-12-14 10:04] LABS: BASO % 0.5 % (0-2.0); EOS % 0.6 % (0-4.5); HEMATOCRIT 41.5 % (32.4-45.2); HEMOGLOBIN 13.8 GM/dL (10.7-15.3); LYMPH % 60.2 % (8-40); MCH 32.8 pg (25.7-33.7); MCHC 33.2 g/dl (32.0-36.0); MEAN CELL VOLUME 98.5 fl (80-96); MEAN PLT VOLUME 7.9 fl (7.5-11.1); MONO % 4.4 % (3.8-10.2); NEUT % 34.3 % (42.8-82.8); PLATELET COUNT 305 K/MM3 (134-434); RBC 4.21 M/mm3 (3.60-5.2); RDW 16.5 % (11.6-15.6); WHITE BLOOD COUNT 12.3 K/mm3 (4.0-10.0)
[2020-12-14 10:13] LABS: POTASSIUM 6.1 mmol/L (3.5-5.1)
[2020-12-14] MEDS: FAMOTIDINE 40 MG/5 ML ORAL SUSPENSION PO SCH ×2 (12:30→22:47)
[2020-12-14 13:57] LABS: ANISOCYTOSIS 0; MACROCYTOSIS 0; OVALOCYTE 1+; PLATELET ESTIMATE NORMAL
[2020-12-14] MEDS: RIVAROXABAN 20 MG TABLET PO SCH (21:46)
[2020-12-14] MEDS: MONTELUKAST NA 10 MG TABLET PO SCH (21:49)
[2020-12-15] MEDS: dilTIAZem HCL 30 MG TABLET PO SCH ×3 (06:54→22:14)
[2020-12-15] MEDS: PANTOPRAZOLE 40 MG TABLET PO SCH (06:56)
[2020-12-15] MEDS ORDERED: PT OWN MED DRAWER 7, Y5N ONE ×2 (09:52→22:07)
[2020-12-15] MEDS: FOLIC ACID 1 MG TABLET (FP) PO SCH (10:04)
[2020-12-15] MEDS: SENNOSIDES 8.6MG TABLET (FP) PO SCH ×2 (10:04→22:14)
[2020-12-15] MEDS: CALCIUM CARBONATE 650 MG TABLET PO SCH ×2 (10:04→22:15)
[2020-12-15] MEDS: FAMOTIDINE 40 MG/5 ML ORAL SUSPENSION PO SCH ×2 (10:04→22:14)
[2020-12-15] MEDS: POLYETHYLENE GLYCOL 3350 119 GM BTL PO SCH (10:04)
[2020-12-15 10:25] LABS: BASO % 0.4 % (0-2.0); EOS % 0.6 % (0-4.5); HEMATOCRIT 39.2 % (32.4-45.2); HEMOGLOBIN 13.1 GM/dL (10.7-15.3); LYMPH % 60.7 % (8-40); MCHC 33.5 g/dl (32.0-36.0); MEAN CELL VOLUME 98.6 fl (80-96); MEAN PLT VOLUME 8.1 fl (7.5-11.1); MONO % 3.9 % (3.8-10.2); NEUT % 34.4 % (42.8-82.8); PLATELET COUNT 290 K/MM3 (134-434); RBC 3.97 M/mm3 (3.60-5.2); WHITE BLOOD COUNT 11.7 K/mm3 (4.0-10.0)
[2020-12-15 10:49] LABS: POTASSIUM 3.6 mmol/L (3.5-5.1)
[2020-12-15 10:56] LABS: CALCIUM 8.5 mg/dL (8.5-10.1)
[2020-12-15 10:58] LABS: ALBUMIN 3.1 g/dl (3.4-5.0); BLOOD UREA NITROGEN 17.7 mg/dL (7-18)
[2020-12-15 11:00] LABS: BILIRUBIN,TOTAL 0.5 mg/dL (0.2-1); CREATININE 0.7 mg/dL (0.55-1.3); TOT PROT 5.8 g/dl (6.4-8.2)
[2020-12-15 12:09] LABS: ANISOCYTOSIS 1+; MACROCYTOSIS 1+; PLATELET ESTIMATE NORMAL
[2020-12-15] MEDS: RIVAROXABAN 20 MG TABLET PO SCH (17:03)
[2020-12-15] MEDS: MONTELUKAST NA 10 MG TABLET PO SCH (22:15)
[2020-12-15] MEDS: HYDROCORTISONE 0.5% TOPICAL CREAM 30 GM TUBE TP PRN (22:16)
[2020-12-16] MEDS: dilTIAZem HCL 30 MG TABLET PO SCH ×3 (06:07→22:01)
[2020-12-16] MEDS: PANTOPRAZOLE 40 MG TABLET PO SCH (06:07)
[2020-12-16] MEDS ORDERED: PT OWN MED DRAWER 7, Y5N ONE ×2 (09:42→21:55)
[2020-12-16] MEDS: FAMOTIDINE 40 MG/5 ML ORAL SUSPENSION PO SCH ×2 (09:45→22:01)
[2020-12-16] MEDS: SENNOSIDES 8.6MG TABLET (FP) PO SCH ×2 (09:45→22:00)
[2020-12-16] MEDS: FOLIC ACID 1 MG TABLET (FP) PO SCH (09:45)
[2020-12-16] MEDS: CALCIUM CARBONATE 650 MG TABLET PO SCH ×2 (09:45→22:01)
[2020-12-16] MEDS: POLYETHYLENE GLYCOL 3350 119 GM BTL PO SCH (09:47)
[2020-12-16] MEDS: RIVAROXABAN 20 MG TABLET PO SCH (17:11)
[2020-12-16] MEDS: MONTELUKAST NA 10 MG TABLET PO SCH (22:02)
[2020-12-17] MEDS: PANTOPRAZOLE 40 MG TABLET PO SCH (06:24)
[2020-12-17] MEDS: dilTIAZem HCL 30 MG TABLET PO SCH ×3 (06:24→21:56)
[2020-12-17 08:51] LABS: BASO % 0.6 % (0-2.0); EOS % 0.9 % (0-4.5); HEMATOCRIT 40.8 % (32.4-45.2); HEMOGLOBIN 13.7 GM/dL (10.7-15.3); LYMPH % 63.4 % (8-40); MCHC 33.5 g/dl (32.0-36.0); MEAN CELL VOLUME 98.7 fl (80-96); MEAN PLT VOLUME 7.7 fl (7.5-11.1); MONO % 2.8 % (3.8-10.2); NEUT % 32.3 % (42.8-82.8); PLATELET COUNT 320 K/MM3 (134-434); RBC 4.14 M/mm3 (3.60-5.2); RDW 16.1 % (11.6-15.6); WHITE BLOOD COUNT 12.9 K/mm3 (4.0-10.0)
[2020-12-17 09:16] LABS: POTASSIUM 3.9 mmol/L (3.5-5.1)
[2020-12-17 09:21] LABS: ALBUMIN 3.3 g/dl (3.4-5.0); BLOOD UREA NITROGEN 29.6 mg/dL (7-18); CALCIUM 8.7 mg/dL (8.5-10.1)
[2020-12-17 09:24] LABS: CREATININE 0.7 mg/dL (0.55-1.3)
[2020-12-17 09:26] LABS: BILIRUBIN,TOTAL 0.5 mg/dL (0.2-1); TOT PROT 5.8 g/dl (6.4-8.2)
[2020-12-17] MEDS ORDERED: PT OWN MED DRAWER 7, Y5N ONE ×2 (09:28→21:42)
[2020-12-17] MEDS: POLYETHYLENE GLYCOL 3350 119 GM BTL PO SCH (09:30)
[2020-12-17] MEDS: CALCIUM CARBONATE 650 MG TABLET PO SCH ×2 (09:30→21:56)
[2020-12-17] MEDS: SENNOSIDES 8.6MG TABLET (FP) PO SCH ×2 (09:30→21:59)
[2020-12-17] MEDS: FOLIC ACID 1 MG TABLET (FP) PO SCH (09:30)
[2020-12-17] MEDS: FAMOTIDINE 40 MG/5 ML ORAL SUSPENSION PO SCH ×2 (09:31→21:59)
[2020-12-17 11:51] LABS: ANISOCYTOSIS 1+; MACROCYTOSIS 2+; PLATELET ESTIMATE NORMAL
[2020-12-17] MEDS: RIVAROXABAN 20 MG TABLET PO SCH (17:32)
[2020-12-17] MEDS: MONTELUKAST NA 10 MG TABLET PO SCH (21:59)
[2020-12-18] MEDS: dilTIAZem HCL 30 MG TABLET PO SCH ×2 (06:30→13:55)
[2020-12-18] MEDS ORDERED: PT OWN MED DRAWER 7, Y5N ONE (09:51)
[2020-12-18] MEDS: FOLIC ACID 1 MG TABLET (FP) PO SCH (09:58)
[2020-12-18] MEDS: CALCIUM CARBONATE 650 MG TABLET PO SCH (09:59)
[2020-12-18] MEDS: FAMOTIDINE 40 MG/5 ML ORAL SUSPENSION PO SCH (09:59)
[2020-12-18] MEDS: POLYETHYLENE GLYCOL 3350 119 GM BTL PO SCH ×2 (09:59→10:01)
[2020-12-18] MEDS: HYDROCORTISONE 0.5% TOPICAL CREAM 30 GM TUBE TP PRN (10:00)
[2020-12-18] MEDS: SENNOSIDES 8.6MG TABLET (FP) PO SCH (10:00)
[2020-12-18 15:40] VITALS: BP 108/72; PULSE 95; TEMP 97.1
== END 2020-12-18 17:51 | disposition home or self-care (01) | DRG 641 ==
LOC: JER 14:39 → JERBED 15:36 → J5WEST-2 12-14 04:22 → J6S 12-15 00:09
PROVIDERS: ADMIT Student in an Organized Health Care Education/Training Program; ATTEND Internal Medicine
DX: R62.7 Adult failure to thrive (principal); E46 Unspecified protein-calorie malnutrition; Z68.24 Body mass index [BMI] 24.0-24.9, adult; I10 Essential (primary) hypertension; E78.5 Hyperlipidemia, unspecified; G20 Parkinson's disease; K59.09 Other constipation; J45.909 Unspecified asthma, uncomplicated; R29.6 Repeated falls; K21.9 Gastro-esophageal reflux disease without esophagitis; R11.0 Nausea; R53.1 Weakness; R19.7 Diarrhea, unspecified; R32 Unspecified urinary incontinence; D72.829 Elevated white blood cell count, unspecified; Z87.11 Personal history of peptic ulcer disease; Z86.718 Personal history of other venous thrombosis and embolism
CPT/HCPCS: 36415; 70450-TC; 71045-TC-FY; 74018-TC-FY; 80053; 81003; 82550; 83605; 83735; 84100; 84443; 84484; 85025; 85610; 85730; 86769; 87086; 93005; 93010; 97116-GP; 97161-GP; 99285-25; C9803; U0003